=== PATIENT | female | born 1945 | race African-American/Black ===

== ENCOUNTER 2016-07-24 10:53 | Observation (INO) | payer MEDICARE, OTHER ==
--- NOTE | 2016-07-24 11:27 | ED ---
General Adult HPI - General Chief complaint: Weakness Stated complaint: HEADACHE, LUNG PAIN LEFT SIDE, CONGESTION Time Seen by Provider: 07/24/16 11:05 Source: patient, RN notes reviewed Mode of arrival: ambulatory Limitations: no limitations - History of Present Illness Initial comments: This is a 70-year-old female presents emergency Department with a past medical history significant for diabetes hypertension high cholesterol. Patient comes into the emergency department today because she states she has been feeling well since Wednesday. Patient states she's been in bed since Wednesday not eating or drinking much because she felt so bad. Patient states she barely has a strength. Go to the bathroom. Patient states she also has had some left-sided chest discomfort that she finds very difficult to describe. Patient states it' s always there and sometimes is associated with some shortness of breath per patient denies any diaphoresis. Patient denies any nausea vomiting per patient denies any diarrhea. Patient denies any fever per patient states sometimes the cough has produced some sputum but a lot of times it is not. Patient also complains of occasional sharp pains to her head the last one second or less. But currently does not have a headache denies any visual disturbance speech disturbance or any numbness weakness. - Related Data Home Medications Medication Instructions Recorded Confirmed Aspirin EC [Ecotrin Low Dose] 81 mg PO DAILY 07/24/16 07/24/16 INSULIN LISPRO (humaLOG) [HumaLOG] See Protocol SQ ACHS 07/24/16 07/24/16 Insulin Detemir [Levemir] 70 unit SQ HS 07/24/16 07/24/16 Lisinopril [Zestril] 20 mg PO DAILY 07/24/16 07/24/16 Metoprolol Succinate (ER) [Toprol 50 mg PO DAILY 07/24/16 07/24/16 Xl] Omeprazole 40 mg PO DAILY 07/24/16 07/24/16 Oxybutynin Chloride [Ditropan] 5 mg PO BID 07/24/16 07/24/16 Pravastatin Sodium [Pravachol] 20 mg PO HS 07/24/16 07/24/16 metFORMIN HCL [Glucophage] 500 mg PO BID 07/24/16 07/24/16 Allergies Allergy/AdvReac Type Severity Reaction Status Date / Time Penicillins Allergy Rash/Hives Verified 07/24/16 11:30 Review of Systems ROS Statement: Those systems with pertinent positive or pertinent negative responses have been documented in the HPI. ROS Other: All systems not noted in ROS Statement are negative. Past Medical History Past Medical History: Diabetes Mellitus, GERD/Reflux, Hyperlipidemia, Hypertension Additional Past Medical History / Comment(s): bladder control History of Any Multi-Drug Resistant Organisms: None Reported Past Surgical History: Section Past Psychological History: No Psychological Hx Reported Smoking Status: Former smoker Past Alcohol Use History: None Reported Past Drug Use History: None Reported General Exam - General Exam Comments Initial Comments: GENERAL: Patient is well-developed and well-nourished. Patient is nontoxic and well- hydrated and is in mild distress. ENT: Neck is soft and supple. No significant lymphadenopathy is noted. Oropharynx is clear. Moist mucous membranes. Neck has full range of motion without eliciting any pain. EYES: The sclera were anicteric and conjunctiva were pink and moist. Extraocular movements were intact and pupils were equal round and reactive to light. Eyelids were unremarkable. PULMONARY: Unlabored respirations. Good breath sounds bilaterally. No audible rales rhonchi or wheezing was noted. CARDIOVASCULAR: There is a regular rate and rhythm without any murmurs gallops or rubs. ABDOMEN: Soft and nontender with normal bowel sounds. No palpable organomegaly was noted. There is no palpable pulsatile mass. SKIN: Skin is clear with no lesions or rashes and otherwise unremarkable. NEUROLOGIC: Patient is alert and oriented x3. Cranial nerves II through XII are grossly intact. Motor and sensory are also intact. Normal speech, volume and content. Symmetrical smile. MUSCULOSKELETAL: Normal extremities with adequate strength and full range of motion. No lower extremity swelling or edema. No calf tenderness. LYMPHATICS: No significant lymphadenopathy is noted PSYCHIATRIC: Normal psychiatric evaluation. Normal interpersonal interactions appears functionally intact in deals appropriately with others. No signs of depression. No signs of anxiety. Limitations: no limitations Course Vital Signs 07/24/16 07/24/16 07/24/16 11:05 11:42 11:47 Temperature 99 F Pulse Rate 110 H 110 H Respiratory 20 20 20 Rate Blood Pressure 137/63 160/76 O2 Sat by Pulse 95 98 Oximetry 07/24/16 12:20 Temperature Pulse Rate 99 Respiratory 18 Rate Blood Pressure 156/78 O2 Sat by Pulse 97 Oximetry Medical Decision Making - Medical Decision Making EKG shows sinus tachycardia with occasional PAC at 111 bpm OH interval 148 QRSs 80 QT interval 342 QTC is 465. Patient's EKG shows no ST segment elevation or depression or T-wave abdomen is noted. Lab work was normal. Chest x-ray was normal. I will back and reevaluated the patient she continued to have some discomfort on the left side of her chest. I spoke with Dr. Lira he agreed to admit the patient I wrote admit orders and consult cardiology. Did start the patient on heparin. - Lab Data Result diagrams: 07/24/16 11:30 07/24/16 11:30 Lab Results 07/24/16 07/24/16 07/24/16 Range/Units 11:27 11:30 11:30 WBC 3.1 L (3.8-10.6) k/uL RBC 6.92 H (3.80-5.40) m/uL Hgb 15.2 (11.4-16.0) gm/dL Hct 50.9 H (34.0-46.0) % MCV 73.6 L (80.0-100.0) fL MCH 22.0 L (25.0-35.0) pg MCHC 29.8 L (31.0-37.0) g/dL RDW 14.7 (11.5-15.5) % Plt Count 205 (150-450) k/uL Neutrophils % (Manual) 34.0 % Band Neutrophils % 2.0 % Lymphocytes % (Manual) 50.0 % Monocytes % (Manual) 14.0 % Neutrophils # (Manual) 1.1 L (1.3-7.7) k/uL Lymphocytes # (Manual) 1.6 (1.0-4.8) k/uL Monocytes # (Manual) 0.4 (0-1.0) k/uL Nucleated RBCs 0 (0-0) /100 WBC Manual Slide Review Performed Hypochromasia Moderate Poikilocytosis (manual Present Microcytosis Slight PT (9.0-12.0) sec INR (<1.1) APTT (22.0-30.0) sec Sodium (137-145) mmol/L Potassium (3.5-5.1) mmol/L Chloride (98-107) mmol/L Carbon Dioxide (22-30) mmol/L Anion Gap mmol/L BUN (7-17) mg/dL Creatinine (0.52-1.04) mg/dL Est GFR (MDRD) Af Amer (>60 ml/min/1.73 sqM) Est GFR (MDRD) Non-Af (>60 ml/min/1.73 sqM) Glucose (74-99) mg/dL POC Glucose (mg/dL) 225 H (75-99) mg/dL POC Glu Acute Dialysis Registered Nurse ID Calcium (8.4-10.2) mg/dL Magnesium (1.6-2.3) mg/dL Total Bilirubin (0.2-1.3) mg/dL AST (14-36) U/L ALT (9-52) U/L Alkaline Phosphatase (38-126) U/L Total Creatine Kinase 78 (30-135) U/L CK-MB (CK-2) 0.4 (0.0-2.4) ng/mL CK-MB (CK-2) Rel Index 0.5 Troponin I 0.020 (0.000-0.034) ng/mL NT-Pro-B Natriuret Pep pg/mL Total Protein (6.3-8.2) g/dL Albumin (3.5-5.0) g/dL 07/24/16 07/24/16 07/24/16 Range/Units 11:30 11:30 11:30 WBC (3.8-10.6) k/uL RBC (3.80-5.40) m/uL Hgb (11.4-16.0) gm/dL Hct (34.0-46.0) % MCV (80.0-100.0) fL MCH (25.0-35.0) pg MCHC (31.0-37.0) g/dL RDW (11.5-15.5) % Plt Count (150-450) k/uL Neutrophils % (Manual) % Band Neutrophils % % Lymphocytes % (Manual) % Monocytes % (Manual) % Neutrophils # (Manual) (1.3-7.7) k/uL Lymphocytes # (Manual) (1.0-4.8) k/uL Monocytes # (Manual) (0-1.0) k/uL Nucleated RBCs (0-0) /100 WBC Manual Slide Review Hypochromasia Poikilocytosis (manual Microcytosis PT 11.9 (9.0-12.0) sec INR 1.2 (<1.1) APTT 28.3 (22.0-30.0) sec Sodium 136 L (137-145) mmol/L Potassium 4.3 (3.5-5.1) mmol/L Chloride 96 L (98-107) mmol/L Carbon Dioxide 23 (22-30) mmol/L Anion Gap 17 mmol/L BUN 14 (7-17) mg/dL Creatinine 1.03 (0.52-1.04) mg/dL Est GFR (MDRD) Af Amer >60 (>60 ml/min/1.73 sqM) Est GFR (MDRD) Non-Af 53 (>60 ml/min/1.73 sqM) Glucose 255 H (74-99) mg/dL POC Glucose (mg/dL) (75-99) mg/dL POC Glu Acute Dialysis Registered Nurse ID Calcium 9.6 (8.4-10.2) mg/dL Magnesium 1.6 (1.6-2.3) mg/dL Total Bilirubin 0.6 (0.2-1.3) mg/dL AST 112 H (14-36) U/L ALT 105 H (9-52) U/L Alkaline Phosphatase 111 (38-126) U/L Total Creatine Kinase (30-135) U/L CK-MB (CK-2) (0.0-2.4) ng/mL CK-MB (CK-2) Rel Index Troponin I (0.000-0.034) ng/mL NT-Pro-B Natriuret Pep 41 pg/mL Total Protein 8.4 H (6.3-8.2) g/dL Albumin 4.4 (3.5-5.0) g/dL Disposition Clinical Impression: Unstable angina Disposition: ADMITTED IP TO THIS [facility] Time of Disposition: 13:41
[2016-07-24 11:30] LABS: Glucose,Whole Blood 225 mg/dL (75-99)
[2016-07-24 12:02] LABS: ALT 105 U/L (9-52); AST 112 U/L (14-36); Alkaline Phosphatase 111 U/L (38-126); Anion Gap 17 mmol/L; Blood Urea Nitrogen 14 mg/dL (7-17); Calcium 9.6 mg/dL (8.4-10.2); Carbon Dioxide 23 mmol/L (22-30); Chloride 96 mmol/L (98-107); Glucose 255 mg/dL (74-99); Magnesium 1.6 mg/dL (1.6-2.3); Non-African American GFR(MDRD) 53 (>60 ml/min/1.73 sqM); Potassium 4.3 mmol/L (3.5-5.1); Sodium 136 mmol/L (137-145); Total Bilirubin 0.6 mg/dL (0.2-1.3); Total Protein 8.4 g/dL (6.3-8.2)
[2016-07-24 12:09] LABS: Aty Lym Flag Moderate; CH 22.2; CHCM 30.4; HCT 50.9 % (34.0-46.0); HDW 2.61; HGB 15.2 gm/dL (11.4-16.0); Hypochromasia Moderate; INR 1.2 (<1.1); MCHC 29.8 g/dL (31.0-37.0); MCV 73.6 fL (80.0-100.0); Mean Platelet Volume 6.3; Microcytosis Slight; Partial Thromboplastin Time 28.3 sec (22.0-30.0); Prothrombin Time 11.9 sec (9.0-12.0); RBC 6.92 m/uL (3.80-5.40); RDW 14.7 % (11.5-15.5); WBC 3.1 k/uL (3.8-10.6); WBC (Perox) 3.16
--- NOTE | 2016-07-24 12:15 | XR ---
EXAMINATION TYPE: XR chest 2V DATE OF EXAM: 07/24/2016 11:59 AM COMPARISON: 04/21/2016 HISTORY: Shortness of breath TECHNIQUE: Frontal and lateral views of the chest are obtained. FINDINGS: Scattered senescent parenchymal changes noted. Hyperinflation compatible with COPD. No evidence for infiltrate. No evidence for atelectasis. Heart size is stable. Mediastinal structures are stable and grossly unremarkable. No evidence for hilar prominence. Degenerative changes dorsal spine. IMPRESSION: 1. No evidence for acute pulmonary disease.
[2016-07-24 12:31] LABS: Creatine Kinase MB 0.4 ng/mL (0.0-2.4); Troponin I 0.02 ng/mL (0.000-0.034)
[2016-07-24 12:45] LABS: Add Differential Manual Differential
[2016-07-24 12:48] LABS: Manual Review Performed; Nucleated Red Blood Cells 0 /100 WBC (0-0); Total Cells Counted 100
[2016-07-24] MEDS ORDERED: NITROGLYCERIN SL TABS 0.4 MG TAB SUBLINGUAL PRN (13:42)
[2016-07-24] MEDS ORDERED: ASPIRIN 81 MG CHEW PO STA (13:42)
[2016-07-24 16:55] LABS: Glucose,Whole Blood 248 mg/dL (75-99)
[2016-07-24 17:46] LABS: Creatine Kinase MB 0.5 ng/mL (0.0-2.4); Troponin I 0.023 ng/mL (0.000-0.034)
[2016-07-24 20:37] LABS: Glucose,Whole Blood 307 mg/dL (75-99)
[2016-07-24] MEDS ORDERED: PRAVASTATIN SODIUM 20 MG TAB PO SCH (21:00)
[2016-07-24] MEDS: OXYBUTYNIN CHLORIDE 5 MG TAB PO SCH (21:19)
[2016-07-24] MEDS: LISINOPRIL 20 MG TAB PO SCH (21:19)
[2016-07-24] MEDS: INSULIN DETEMIR 100 UNIT/ML 10 ML VIAL SQ SCH (21:19)
[2016-07-24] MEDS: INSULIN LISPRO (humaLOG) 300 UNIT/3 ML VIAL SQ SCH ×2 (21:20→21:49)
[2016-07-24] MEDS: NITROGLYCERIN OINT 1 INCH/GM PACKET TOPICAL SCH (21:48)
[2016-07-24 22:35] LABS: Hemoglobin A1C 9.2 % (4.2-6.1)
[2016-07-25 01:08] LABS: Creatine Kinase MB 0.7 ng/mL (0.0-2.4)
[2016-07-25 01:13] LABS: Troponin I 0.04 ng/mL (0.000-0.034)
[2016-07-25] MEDS: NITROGLYCERIN OINT 1 INCH/GM PACKET TOPICAL SCH ×2 (01:13→05:28)
[2016-07-25 02:41] LABS: Cholesterol 122 mg/dL (<200); HDL Cholesterol 21 mg/dL (40-60); Triglycerides 152 mg/dL (<150)
[2016-07-25 06:48] LABS: Glucose,Whole Blood 227 mg/dL (75-99)
[2016-07-25] MEDS ORDERED: ASPIRIN 325 MG TAB PO SCH (09:00)
--- NOTE | 2016-07-25 09:51 | P.CRDCN ---
History of Present Illness Consult date: 07/25/16 Requesting physician: Vahid Lira Consult reason: chest pain Chief complaint: Weakness and shortness of breath History of present illness: This is a 70-year-old -[place] female with history of hypertension, diabetes, hyperlipidemia, who presented to the hospital with vague symptoms. She states that she's been extremely weak for the past 3-4 days, decreased appetite, frequent sweating spells. She also states that she felt congested in her chest and had a heavy feeling on the left side of her chest. She is always short of breath but states in the past couple of days she's been more short of breath than usual. Positive cough, nonproductive. Patient does see Dr. TIP Connell in the office, she had a dobutamine echocardiographic study in August of last year which was reported to be normal. On presentation here patient was noted to have a low-grade temperature of 99. Blood pressure 137/63 with heart rate of 110, O2 saturation 95%. Initial EKG showed a sinus tachycardia with occasional PACs, no acute changes noted. EKG performed this morning showed a normal sinus rhythm with no acute changes. Laboratory data, WBC 3.1, hemoglobin 15.2, platelet count 205. Sodium 136, potassium 4.3, BUN 14, creatinine 1.0. Blood glucose on admission 307. AST 112, ALT 105. Troponins 0.020, 0.0-3, 0.040. Patient is currently on aspirin 81 mg daily, insulin, lisinopril 20 daily, metoprolol tartrate 50 daily, Nitropaste and Protonix along with pravastatin 20 mg daily. At the time of my examination this morning , she denies any chest pain, discomfort complains of feeling mildly weak and tired. Chest x-ray does not reveal any evidence for acute pulmonary disease. Past Medical History Past Medical History: Diabetes Mellitus, GERD/Reflux, Hyperlipidemia, Hypertension, Osteoarthritis (OA) Additional Past Medical History / Comment(s): urinary incont, uti, tole in 1995 had a touch of copd-quit smoking, eczema, chronic back pain, sciatica, ddd, herniated disc, per past med hx hep 04-18-86, menigitis 07-19-1969, History of Any Multi-Drug Resistant Organisms: None Reported Past Surgical History: Section, Heart Catheterization Additional Past Surgical History / Comment(s): x3 c-sections, cataracts,lt breast bx-neg Past Anesthesia/Blood Transfusion Reactions: No Reported Reaction Past Psychological History: No Psychological Hx Reported Additional Psychological History / Comment(s): pt lives [place] in apt-no steps, uses a cane when up. no [employer]side services. 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 Smoking Status: Former smoker Past Alcohol Use History: None Reported Additional Past Alcohol Use History / Comment(s): started smoking age 14, quit 1995 was smoking 1.5 ppd. Past Drug Use History: None Reported - Past Family History Mother Family Medical History: Cancer Additional Family Medical History / Comment(s): brain ca Father Family Medical History: Cancer Additional Family Medical History / Comment(s): prostate cancer Medications and Allergies Home Medications Medication Instructions Recorded Confirmed Type Aspirin EC [Ecotrin Low Dose] 81 mg PO DAILY 07/24/16 07/24/16 History INSULIN LISPRO (humaLOG) [HumaLOG] See Protocol SQ ACHS 07/24/16 07/24/16 History Insulin Detemir [Levemir] 70 unit SQ HS 07/24/16 07/24/16 History Lisinopril [Zestril] 20 mg PO DAILY 07/24/16 07/24/16 History Metoprolol Succinate (ER) [Toprol 50 mg PO DAILY 07/24/16 07/24/16 History Xl] Omeprazole 40 mg PO DAILY 07/24/16 07/24/16 History Oxybutynin Chloride [Ditropan] 5 mg PO BID 07/24/16 07/24/16 History Pravastatin Sodium [Pravachol] 20 mg PO HS 07/24/16 07/24/16 History metFORMIN HCL [Glucophage] 500 mg PO BID 07/24/16 07/24/16 History Allergies Allergy/AdvReac Type Severity Reaction Status Date / Time Penicillins Allergy Rash/Hives Verified 07/24/16 11:30 Physical Exam Vitals: Vital Signs Temp Pulse Pulse Resp BP BP BP 07/25/16 08:00 98.3 F 91 16 125/56 07/25/16 04:00 98.1 F 100 18 111/61 07/25/16 00:00 89 18 07/24/16 22:54 110 H 18 151/66 07/24/16 20:00 95 18 07/24/16 19:52 111 H 18 144/63 07/24/16 16:00 97.8 F 103 H 18 143/74 07/24/16 15:53 99 F 95 18 158/70 Pulse Ox 07/25/16 08:00 98 07/25/16 04:00 95 07/25/16 00:00 07/24/16 22:54 98 07/24/16 20:00 07/24/16 19:52 96 07/24/16 16:00 98 07/24/16 15:53 98 Intake and Output 07/24/16 07/25/16 07/25/16 22:59 06:59 14:59 Intake Total 360 Balance 360 Intake: Oral 360 Other: Voiding Method Toilet Toilet Diaper Diaper # Voids 1 3 # Bowel Movements 3 Weight 98.4 kg 98.4 kg PHYSICAL EXAMINATION: HEENT: Head is atraumatic, normocephalic. Pupils equal, round. Neck is supple. There is no elevated jugular venous pressure. HEART EXAMINATION: Heart S1, S2 normal. No murmur or gallop heard. CHEST EXAMINATION: Lungs are clear to auscultation and precussion. No chest wall tenderness is noted on palpation or with deep breathing. ABDOMEN: Soft, nontender. Bowel sounds are heard. No organomegaly noted. EXTREMITIES: 2+ peripheral pulses with no evidence of peripheral edema and no calf tenderness noted. NEUROLOGIC patient is awake, alert and oriented -3. . Results 07/24/16 11:30 07/24/16 11:30 Cardiac Enzymes 07/24/16 07/25/16 Range/Units 17:03 00:02 CK-MB (CK-2) 0.5 0.7 (0.0-2.4) ng/mL Troponin I 0.023 0.040 H* (0.000-0.034) ng/mL Current Medications Generic Name Dose Route Start Last Admin Trade Name Freq PRN Reason Stop Dose Admin Aspirin 81 mg 07/25/16 09:00 Aspirin PO DAILY OLIVA Insulin Detemir 70 unit 07/24/16 21:00 07/24/16 21:19 Levemir SQ 70 unit HS OLIVA Administration Insulin Human Lispro 0 unit 07/24/16 17:30 07/24/16 21:49 Humalog SQ Not Given ACHS [facility] Protocol Lisinopril 20 mg 07/24/16 19:00 07/24/16 21:19 Zestril PO 20 mg DAILY [facility] Administration Metoprolol Succinate 50 mg 07/25/16 09:00 Toprol Xl PO DAILY [facility] Nitroglycerin 1 inch 07/24/16 18:00 07/25/16 05:28 Nitro-Bid Oint TOPICAL Not Given Q6HR [facility] Nitroglycerin 0.4 mg 07/24/16 13:42 Nitrostat SUBLINGUAL Q5M PRN Chest Pain Oxybutynin Chloride 5 mg 07/24/16 21:00 07/24/16 21:19 Ditropan PO 5 mg BID OLIVA Administration Pantoprazole Sodium 40 mg 07/25/16 07:30 Protonix PO AC-BRKFST [facility] Pravastatin Sodium 20 mg 07/24/16 21:00 07/24/16 21:19 Pravachol PO 20 mg HS OLIVA Administration Intake and Output 07/24/16 07/25/16 07/25/16 22:59 06:59 14:59 Intake Total 360 Balance 360 Intake: Oral 360 Other: Voiding Method Toilet Toilet Diaper Diaper # Voids 1 3 # Bowel Movements 3 Weight 98.4 kg 98.4 kg EKG Interpretations (text) Initial EKG shows a sinus tachycardia with occasional PAC, EKG performed this morning shows normal sinus rhythm with no acute changes. Assessment and Plan Plan: Assessment and plan #1 symptoms of progressive weakness with associated diaphoresis and chest congestion. Low-grade temperature on admission. Rule out viral syndrome, influenza. #2 atypical chest discomfort, troponins 0.02, 0.02, 0.04. #3 diabetes, uncontrolled. #4 hypertension #5 hyperlipidemia #6 obesity #7 elevated lfts, possible non alcoholic liver disease Plan We will obtain an echocardiogram with Doppler study. Discontinue pravastatin and initiate Lipitor. Obatin Flu swab. We will also request ultrasound of liver and gallbladder be performed today. Symptoms atypical for acute coronary syndrome, may consider stress testing on Wednesday. DNP note has been reviewed, I agree with a documented findings and plan of care. Patient was seen and examined.
[2016-07-25 11:30] VITALS: BMI 37.2
[2016-07-25 12:15] LABS: Glucose,Whole Blood 199 mg/dL (75-99)
--- NOTE | 2016-07-25 12:48 | US ---
EXAMINATION TYPE: US liver DATE OF EXAM: 07/25/2016 11:35 AM COMPARISON: NONE CLINICAL HISTORY: abnormal lfts. TECHNOLOGIST IMPRESSION: Limited examination due to patient body habitus, pt unable to hold breath w ell, and fatty liver. Pancreas: Obscured by bowel gas, portions visualized appear wnl Liver: Increased attenuation, decreased visualization of vessels suggestive of fatty infiltrate Gallbladder: wnl Evidence for sonographic Lacey's sign: No CBD: wnl Right Kidney: Obscured by overlying bowel gas, portions visualized appear wnl There is fatty infiltration to the liver. Gallbladder is sonolucent. Gallbladder wall is normal and 0 .14 cm. Common bile duct is normal 0.36 cm. Right kidney measures 10.4 x 4.2 x 5.6 cm. No masses just hydronephrosis are evident. IMPRESSION: 1. Normal right upper quadrant ultrasound
[2016-07-25] MEDS: INSULIN LISPRO (humaLOG) 300 UNIT/3 ML VIAL SQ SCH ×5 (12:51→20:29)
[2016-07-25] MEDS: ASPIRIN 81 MG CHEW PO SCH (12:57)
[2016-07-25] MEDS: OXYBUTYNIN CHLORIDE 5 MG TAB PO SCH ×2 (12:57→20:30)
[2016-07-25] MEDS: METOPROLOL SUCCINATE (ER) 50 MG TAB.ER.24H PO SCH (12:57)
[2016-07-25] MEDS: PANTOPRAZOLE 40 MG TABLET PO SCH (12:58)
[2016-07-25] MEDS: LISINOPRIL 20 MG TAB PO SCH (12:58)
[2016-07-25 17:49] LABS: Glucose,Whole Blood 191 mg/dL (75-99)
[2016-07-25] MEDS: SODIUM CHLORIDE 0.9% 1,000 ML IV SCH (20:26)
[2016-07-25] MEDS: INSULIN DETEMIR 100 UNIT/ML 10 ML VIAL SQ SCH (20:27)
[2016-07-25 20:30] LABS: Glucose,Whole Blood 260 mg/dL (75-99)
--- NOTE | 2016-07-25 23:04 | HP ---
Patient is a 70-year-old female, came in with complaints of chest ( ). Patient is mostly having flu-like symptoms. Regarding the chest pain and issues, Cardiology was consulted. Please refer to the dictation for further details. Regarding respiratory issues, patient was having flu-like symptoms which have been generalized body aches. Patient denied any nausea, but did have diarrhea yesterday which resolved at this point of time. Patient is positive for flu. Patient was febrile here in the hospital and the patient denied any fever at home. Patient will be started on Tamiflu and patient has a history of coronary artery disease in the past. Cardiology evaluated the patient and they are recommending a stress test on Wednesday. If Cardiology clears, patient can be discharged today with Tamiflu. If not, patient will be started on IV fluids and will leave her here. Patient has mildly elevated AST and ALT, because of which we did an ultrasound of the liver which is essentially negative now, so I will obtain hepatitis panel. Will repeat electrolytes tomorrow. Patient's chest pain for me appears to be mostly musculoskeletal in nature. Chest x-ray did not show any pneumonia. The patient's chest pain is nonpleuritic, not associated with food. Past medical history is significant for diabetes mellitus, gastroesophageal reflux disease, hyperlipidemia, hypertension, osteoarthritis, cardiac catheterization in the past, coronary artery disease, ear infection. ROS: All other systems were reviewed and were negative. SOCIAL HISTORY: Former smoker, used to smoke 1.55 packs per day. Denied any alcohol abuse or any drug abuse. FAMILY HISTORY: Mother had brain cancer. Father had prostate cancer. HOME MEDICATIONS: 1. Aspirin. 2. Insulin. 3. Levemir 70 units at bedtime. 4. Lisinopril. 5. Metoprolol. 6. Omeprazole. 7. Oxybutynin. 8. Pravastatin. 9. Metformin. ALLERGIES: ALLERGIC TO PENICILLIN. PHYSICAL EXAMINATION: VITAL SIGNS: Temperature 98.0, pulse of 91, respiratory rate of 16. Patient when she came in was tachycardic at 111. Blood pressure of 111/61, saturating at 98% on room air. GENERAL: Patient does have generalized ( ) and appears to be a little bit fatigued. HEENT: Pupils are round and equally reacting to light. EOMI. No scleral icterus. No conjunctival pallor. Normocephalic, atraumatic. No pharyngeal erythema. No thyromegaly. CARDIOVASCULAR: S1 and S2 present. No murmurs, rubs, or gallops. PULMONARY: Chest is clear to auscultation, no wheezing or crackles. ABDOMEN: Soft, nontender, nondistended, normoactive bowel sounds. No palpable organomegaly. MUSCULOSKELETAL: No joint swelling or deformity. EXTREMITIES: No cyanosis, clubbing, or pedal edema. NEUROLOGICAL: Gross neurological examination did not reveal any focal deficits. SKIN: No rashes. LABORATORY DATA: CBC, CMP are abnormal for elevated hematocrit. Blood glucose is minimally elevated. Chest x-ray does not show any pneumonic process acutely and the rest of the cardiac workup is as per Cardiology, who will evaluate the patient. ASSESSMENT AND PLAN: 1. Symptoms of generalized weakness and febrile episode and flu-like symptoms secondary to influenza. Patient will be discharged on Tamiflu if cleared by Cardiology. Patient does have chest congestion and diarrhea, all of which evolving from flu. 2. Atypical chest pain with negative troponin. Further management as per Cardiology. 3. Diabetes mellitus. Uncontrolled blood sugars. Will continue with the present regimen. Will titrate her insulin accordingly. 4. Hypertension. 5. Hyperlipidemia. 6. Obesity. 7. Mildly elevated liver function tests, probable related to nonalcoholic steatohepatitis. Ultrasound of the liver has been obtained. Will obtain a hepatitis panel ( ). MTDD
[2016-07-26 06:55] LABS: Glucose,Whole Blood 154 mg/dL (75-99)
[2016-07-26 07:23] LABS: ALT 72 U/L (9-52); AST 67 U/L (14-36); Alkaline Phosphatase 86 U/L (38-126); Anion Gap 10 mmol/L; Blood Urea Nitrogen 28 mg/dL (7-17); Carbon Dioxide 26 mmol/L (22-30); Chloride 101 mmol/L (98-107); Glucose 169 mg/dL (74-99); Non-African American GFR(MDRD) >60 (>60 ml/min/1.73 sqM); Potassium 4.4 mmol/L (3.5-5.1); Sodium 137 mmol/L (137-145); Total Bilirubin 0.4 mg/dL (0.2-1.3); Total Protein 7.2 g/dL (6.3-8.2)
[2016-07-26 08:19] VITALS: RESP 16
[2016-07-26] MEDS: LISINOPRIL 20 MG TAB PO SCH (08:30)
[2016-07-26] MEDS: ASPIRIN 81 MG CHEW PO SCH (08:30)
[2016-07-26] MEDS: PANTOPRAZOLE 40 MG TABLET PO SCH (08:30)
[2016-07-26] MEDS: METOPROLOL SUCCINATE (ER) 50 MG TAB.ER.24H PO SCH (08:30)
[2016-07-26] MEDS: OXYBUTYNIN CHLORIDE 5 MG TAB PO SCH (08:31)
[2016-07-26] MEDS: INSULIN LISPRO (humaLOG) 300 UNIT/3 ML VIAL SQ SCH ×4 (08:31→13:09)
[2016-07-26] MEDS: SODIUM CHLORIDE 0.9% 1,000 ML IV SCH (08:31)
[2016-07-26] MEDS ORDERED: ATORVASTATIN 40 MG TAB PO SCH (09:00)
[2016-07-26] MEDS ORDERED: OSELTAMIVIR 75 MG CAP PO SCH (11:30)
[2016-07-26 11:52] VITALS: BP 119/51; PULSE 68; TEMP 97.9
[2016-07-26 12:09] LABS: Glucose,Whole Blood 99 mg/dL (75-99)
--- NOTE | 2016-07-26 15:08 | ECHOF ---
Referral Reason: MEASUREMENTS -------- HEIGHT: 162.6 cm WEIGHT: 98.0 kg BP: 125/56 RVIDd: 2.7 cm (< 3.3) IVSd: 1.7 cm (0.6 - 1.1) LVIDd: 2.5 cm (3.9 - 5.3) LVPWd: 1.7 cm (0.6 - 1.1) IVSs: 2.1 cm LVIDs: 1.8 cm LVPWs: 2.4 cm LA Diam: 2.6 cm (2.7 - 3.8) LAESV Index (A-L): 19.78 ml/m Ao Diam: 3.0 cm (2.0 - 3.7) AV Cusp: 1.9 cm (1.5 - 2.6) LA Diam: 2.4 cm (2.7 - 3.8) MV EXCURSION: 10.759 mm (> 18.000) MV EF SLOPE: 67 mm/s (70 - 150) EPSS: 0.4 cm MV E Yomi: 0.46 m/s MV DecT: 159 ms MV A Yomi: 0.83 m/s MV E/A Ratio: 0.56 AV maxP.26 mmHg AV meanP.53 mmHg RAP: 15.00 mmHg RVSP: 19.64 mmHg FINDINGS -------- Sinus rhythm. This was a technically adequate study. There is severe concentric left ventricular hypertrophy. Overall left ventricular systolic function is normal with, an EF between 55 - 60 %. The right ventricle is normal in size. Normal LA size by volume 22+/-6 ml/m2. Aortic valve is trileaflet and is mildly thickened. Mild mitral annular calcification present. There is trace mitral regurgitation. Trace tricuspid regurgitation present. Right ventricular systolic pressure is normal at < 35 mmHg. Pulmonic valve appears structurally normal. The aortic root size is normal. The inferior vena cava is dilated with no significant inspiratory collapse which is consistent estimated right atrial pressure of >15 mmHg. Echo free space may represent effusion or a pericardial fat pad. CONCLUSIONS -------- 1. Sinus rhythm. 2. Trace tricuspid regurgitation present. 3. Right ventricular systolic pressure is normal at < 35 mmHg. 4. Pulmonic valve appears structurally normal. 5. The aortic root size is normal. 6. The inferior vena cava is dilated with no significant inspiratory collapse which is consistent estimated right atrial pressure of >15 mmHg. 7. Echo free space may represent effusion or a pericardial fat pad. 8. This was a technically adequate study. 9. There is severe concentric left ventricular hypertrophy. 10. Overall left ventricular systolic function is normal with, an EF between 55 - 60 %. 11. The right ventricle is normal in size. 12. Normal LA size by volume 22+/-6 ml/m2. 13. Aortic valve is trileaflet and is mildly thickened. 14. Mild mitral annular calcification present. 15. There is trace mitral regurgitation. ENVELOPE FOLDING MACHINE OPERATOR: Jere Koch RDCS
--- NOTE | 2016-07-26 17:06 | DS ---
DATE OF ADMISSION: 07/24/2016 DATE OF DISCHARGE: 07/26/2016 Patient is a 70-year-old admitted for chest pain. Patient has atypical chest pain, rule out acute coronary artery syndrome and patient has minimally elevated troponins, not high enough to say myocardial infarction. Patient is positive for influenza. Patient's body aches are related to that and patient is feeling much better today. Patient has reproducible chest pain and patient's AST and ALT are coming down. Patient is clinically doing well. For discharge therapies, refer to my H&P for further details of discharge. Patient will follow with Dr. Shaunna Connell in [address] Freddy Elise in about 3 days. Activity as tolerated. Cardiac diet.
== END 2016-07-26 16:00 | disposition home or self-care (01) ==
LOC: EC 10:53 → 3OBS 13:42
PROVIDERS: ADMIT Internal Medicine; ATTEND Internal Medicine
DX: R07.89 Other chest pain (principal); R79.89 Other specified abnormal findings of blood chemistry; J11.1 Influenza due to unidentified influenza virus with other respiratory manifestations; R74.8 Abnormal levels of other serum enzymes; E11.65 Type 2 diabetes mellitus with hyperglycemia; K21.9 Gastro-esophageal reflux disease without esophagitis; E78.5 Hyperlipidemia, unspecified; E78.00 Pure hypercholesterolemia, unspecified; N32.9 Bladder disorder, unspecified; I10 Essential (primary) hypertension; E66.9 Obesity, unspecified; Z79.82 Long term (current) use of aspirin; Z79.4 Long term (current) use of insulin; Z79.899 Other long term (current) drug therapy; Z79.84 Long term (current) use of oral hypoglycemic drugs; Z88.0 Allergy status to penicillin; Z87.891 Personal history of nicotine dependence; Z80.8 Family history of malignant neoplasm of other organs or systems; Z68.37 Body mass index [BMI] 37.0-37.9, adult; I25.10 Atherosclerotic heart disease of native coronary artery without angina pectoris
CPT/HCPCS: 36415; 94760; 93005; 93306; 83880; 80061; 80053 ×2; 83036; 82550 ×2; 82553 ×2; 83735; 84484 ×2; 85025; 85610; 85730; 87040; 87324; 87502; 71020; 76705; 99285; G0378 ×3; 96360; 96361

== ENCOUNTER → 2016-12-17 | Outpatient (CLI) | payer MEDICARE, OTHER ==
--- NOTE | 2016-12-18 08:35 | MM ---
Reason for exam: screening (asymptomatic). Last mammogram was performed 1 year ago. History: Patient is postmenopausal. Excisional biopsy of the right breast, 2011. Physical Findings: A clinical breast exam by your physician is recommended on an annual basis and results should be correlated with mammographic findings. MG Screening Mammo w CAD Bilateral CC and MLO view(s) were taken. Prior study comparison: December 16, 2015, bilateral MG screening mammo w CAD. November 22, 2014, bilateral MG screening mammo w CAD. The breast tissue is almost entirely fat. Finding: There are slowly increasing grouped/clustered calcifications in the right breast. Increase in number of calcifications since December 16, 2015 and November 22, 2014. ASSESSMENT: Incomplete: need additional imaging evaluation, BI-RAD 0 RECOMMENDATION: Special view mammogram of the right breast. [facility] will attempt to contact patient to return for supplemental views.
== END | disposition home or self-care (01) ==
LOC: RADMAMWWP 10:59
PROVIDERS: ATTEND Internal Medicine
DX: Z12.31 Encounter for screening mammogram for malignant neoplasm of breast (principal)

== ENCOUNTER → 2016-12-23 | Outpatient (CLI) | payer MEDICARE, OTHER ==
--- NOTE | 2016-12-24 06:47 | MM ---
Reason for exam: additional evaluation requested from abnormal screening. Last mammogram was performed less than 1 month ago. History: Patient is postmenopausal. Excisional biopsy of the right breast, 2011. Physical Findings: Nurse did not find any significant physical abnormalities on exam. MG Work Up Mamm w CAD RT LM, CC with magnification, and LM with magnification view(s) were taken of the right breast. Prior study comparison: December 17, 2016, bilateral MG screening mammo w CAD. December 16, 2015, bilateral MG screening mammo w CAD. November 22, 2014, bilateral MG screening mammo w CAD. There are scattered fibroglandular densities. Right breast calcifications are stable back to 11/22/14 and can be considered benign. These results were verbally communicated with the patient and result sheet given to the patient on 12/23/16. ASSESSMENT: Benign, BI-RAD 2 RECOMMENDATION: Routine screening mammogram of both breasts in 1 year.
== END | disposition home or self-care (01) ==
LOC: RADMAMWWP 14:05
PROVIDERS: ATTEND Internal Medicine
DX: R92.8 Other abnormal and inconclusive findings on diagnostic imaging of breast (principal)

== ENCOUNTER → 2016-12-29 | Outpatient (CLI) | payer MEDICARE, OTHER ==
--- NOTE | 2016-12-29 14:35 | XR ---
EXAMINATION TYPE: XR chest 2V DATE OF EXAM: 12/29/2016 COMPARISON: 07/24/2016 HISTORY: Hypertension, preop TECHNIQUE: Frontal and lateral views of the chest are obtained. FINDINGS: There is no focal air space opacity, pleural effusion, or pneumothorax seen. The cardiac silhouette size is within normal limits. Prominent lung volume could be indicative of COPD. Heart siz e is borderline of the patient is rotated which may accentuate the appearance, the exam is stable. Th e osseous structures are intact. IMPRESSION: No acute cardiopulmonary process.
== END | disposition home or self-care (01) ==
LOC: RADXRMAIN 11:36
PROVIDERS: ATTEND Internal Medicine
DX: I10 Essential (primary) hypertension (principal)
CPT/HCPCS: 71020

== ENCOUNTER → 2018-01-10 | Outpatient (CLI) | payer MEDICARE, OTHER ==
--- NOTE | 2018-01-10 13:41 | XR ---
EXAMINATION TYPE: XR chest 2V DATE OF EXAM: 01/10/2018 COMPARISON: Prior chest x-ray 12/29/2017 HISTORY: Hypertension, shoulder pain TECHNIQUE: Frontal and lateral views of the chest are obtained. FINDINGS: There is no focal air space opacity, pleural effusion, or pneumothorax seen. The cardiac silhouette size is stable accounting for rotation. Prominent lung volume could be indicative of unde rlying COPD. The osseous structures are intact. IMPRESSION: No acute cardiopulmonary process.
--- NOTE | 2018-01-10 13:42 | XR ---
Right shoulder HISTORY: Right shoulder pain 3 views of the right shoulder Hypertrophic changes present at the acromioclavicular joint. There is no fracture or dislocation pres ent. Possible pseudocyst in the humeral head. Right lung apex as visualized is normal. IMPRESSION: Acromioclavicular joint arthropathy, shoulder MRI may be of benefit.
== END ==
LOC: RADXRMAIN 11:11
PROVIDERS: ATTEND Internal Medicine
DX: M12.811 Other specific arthropathies, not elsewhere classified, right shoulder (principal); I10 Essential (primary) hypertension
CPT/HCPCS: 71046

== ENCOUNTER → 2018-02-03 | Outpatient (CLI) | payer MEDICARE, OTHER ==
--- NOTE | 2018-02-07 11:38 | MM ---
Reason for exam: screening (asymptomatic). Last mammogram was performed 1 year and 1 month ago. History: Patient is postmenopausal. Excisional biopsy of the right breast, 2011. Physical Findings: A clinical breast exam by your physician is recommended on an annual basis and results should be correlated with mammographic findings. MG Screening Mammo w CAD Bilateral CC and MLO view(s) were taken. Prior study comparison: December 23, 2016, right breast MG work up mamm w CAD RT. December 17, 2016, bilateral MG screening mammo w CAD. There are scattered fibroglandular densities. Finding: There are stable dystrophic, grouped/clustered calcifications in the upper outer quadrant, middle position of the right breast. Previous mammotome biopsy in the right breast. Stable grouped calcifications upper outer right breast and upper inner quadrant left breast. No significant changes in finding since December 23, 2016 and December 17, 2016. ASSESSMENT: Benign, BI-RAD 2 RECOMMENDATION: Routine screening mammogram of both breasts in 1 year.
== END | disposition home or self-care (01) ==
LOC: RADMAMWWP 13:04
PROVIDERS: ATTEND Internal Medicine
DX: Z12.31 Encounter for screening mammogram for malignant neoplasm of breast (principal)
CPT/HCPCS: 77067

== ENCOUNTER 2018-02-06 14:37 | Emergency (ER) | payer MEDICARE, OTHER ==
[2018-02-06] MEDS ORDERED: ONDANSETRON 4 MG/2 ML VIAL IVP STA (15:08)
[2018-02-06] MEDS ORDERED: MORPHINE SULFATE 4 MG/ML SYRINGE IVP STA (15:08)
[2018-02-06] MEDS ORDERED: SODIUM CHLORIDE 0.9% 500 ML IV ONE (15:08)
--- NOTE | 2018-02-06 15:15 | ED ---
General Adult HPI - General Chief complaint: Urogenital Stated complaint: Urogenital Time Seen by Provider: 02/06/18 14:53 Source: patient Mode of arrival: wheelchair Limitations: no limitations - History of Present Illness Initial comments: 72 year-old female history of IDDM and diverticulitis status post resection in September presenting with sudden onset sharp, stabbing, lower abdominal pain that began 45 minutes prior to arrival while at rest, without inciting event, and is accompanied by nausea and chest pressure. She states her last bowel movement was 2 days prior and was normal. She states she is not passing gas but is belching. She is not having any episodes of emesis. Patient denies any urinary symptoms but states she is incontinent wears a brief at baseline. She states her chest pressure is chronic for her and is unsure if it is worse. She denies F/C. She denies history of abdominal aortic aneurysm. - Related Data Home Medications Medication Instructions Recorded Confirmed Aspirin EC [Ecotrin Low Dose] 81 mg PO DAILY 07/24/16 02/06/18 INSULIN LISPRO (humaLOG) [HumaLOG] See Protocol SQ ACHS 07/24/16 02/06/18 Lisinopril [Zestril] 20 mg PO DAILY 07/24/16 02/06/18 Metoprolol Succinate (ER) [Toprol 50 mg PO DAILY 07/24/16 02/06/18 Xl] Pravastatin Sodium [Pravachol] 20 mg PO HS 07/24/16 02/06/18 Ergocalciferol (Vitamin D2) 50,000 unit PO WE 02/06/18 02/06/18 [Vitamin D2] Fluticasone Nasal [place] [Flonase 1 spr EA NOSTRIL DAILY 02/06/18 02/06/18 Nasal [place]] Insulin Glargine,Hum.rec.anlog 60 units SQ HS 02/06/18 02/06/18 [Toujeo Solostar] Ipratropium/Albuterol Sulfate 1 puff INHALATION RT-QID PRN 02/06/18 02/06/18 [Combivent Respimat Inhaler] L.acidoph,Paracasei, B.lactis 1 cap PO DAILY 02/06/18 02/06/18 [Probiotic] Polyethylene Glycol 3350 [Miralax] 17 gm PO DAILY 02/06/18 02/06/18 Allergies Allergy/AdvReac Type Severity Reaction Status Date / Time Penicillins Allergy Rash/Hives Verified 02/06/18 14:55 Sulfa (Sulfonamide Allergy Rash/Hives Verified 02/06/18 15:11 Antibiotics) Review of Systems ROS Statement: Those systems with pertinent positive or pertinent negative responses have been documented in the HPI. Review of Systems Constitutional: Denies fever, chills Eyes: Denies change in vision, Denies pain Ears, nose, mouth, throat: Denies headaches, Denies sore throat Cardiovascular: Denies chest pain. Denies palpitations Respiratory: Denies shortness of breath, Denies cough Gastrointestinal: Positive abdominal pain. Positive nausea. Denies vomiting, diarrhea. Genitourinary: Denies hematuria, Denies infections Musculoskeletal: Denies pain, Denies swelling Integumentary: Denies rash Neurological: Denies headache, focal weakness, focal numbness Psychiatric: Denies anxiety, Denies depression Hematologic/Lymphatic: Denies easy bleeding or bruising ROS Other: All systems not noted in ROS Statement are negative. Past Medical History Past Medical History: Diabetes Mellitus, GERD/Reflux, Hyperlipidemia, Hypertension, Osteoarthritis (OA) Additional Past Medical History / Comment(s): urinary incont, uti, tole in 1995 had a touch of copd-quit smoking, eczema, chronic back pain, sciatica, ddd, herniated disc, per past med hx hep 04-18-86, menigitis 07-19-1969, diverticulitis History of Any Multi-Drug Resistant Organisms: None Reported Past Surgical History: Section, Heart Catheterization Additional Past Surgical History / Comment(s): x3 c-sections, cataracts,lt breast bx-neg, Colon resection 09/2018 Past Anesthesia/Blood Transfusion Reactions: No Reported Reaction Past Psychological History: No Psychological Hx Reported Smoking Status: Former smoker Past Alcohol Use History: None Reported Past Drug Use History: None Reported - Past Family History Mother Family Medical History: Cancer Additional Family Medical History / Comment(s): brain ca Father Family Medical History: Cancer Additional Family Medical History / Comment(s): prostate cancer General Exam - General Exam Comments Initial Comments: General: Awake, alert, No acute Distress HENT: Normocephalic. Atraumatic Eyes: PERRL. EOMI. No scleral icterus. No injected conjunctiva Neck: Full ROM Chest/Lungs: Clear to auscultation bilaterally. No wheezing, rhonchi, or rales Cardiac: Regular rate, rhythm. No murmurs or rubs Abdomen/GI: [Distended abdomen with generalized tenderness, no rebound, no involuntary guarding. Hypoactive bowel sounds. No abdominal bruit. Musculoskeletal: Full ROM Skin: Warm, dry, intact Neurologic: A/Ox3, no weakness, no sensory deficit, no abnormal gait, no coordination deficit Limitations: no limitations Course Vital Signs 02/06/18 02/06/18 02/06/18 14:41 15:56 17:26 Temperature 98.5 F Pulse Rate 76 66 75 Respiratory 18 20 16 Rate Blood Pressure 181/68 192/85 188/85 O2 Sat by Pulse 99 99 96 Oximetry EKG Findings - EKG Comments: EKG Findings:: EKG shows normal sinus rhythm at a rate of 80 bpm. TX 138. QRS 68. QT/QTc 386/445. Similar to EKG from 07/24/16. Medical Decision Making - Medical Decision Making 72-year-old female with abdominal pain. Initial exam the patient is awake, alert, no acute distress. VSS. Patient's EKG shows normal sinus rhythm. Her abdomen is non-peritoneal. Her labratory workup is negative for acute process, including lactic and UA. Her CT abdomen pelvis is negative for acute process. On reevaluation the patient's symptoms have resolved. I offered the patient observation status and she declined saying she felt well enough to follow up with her PCP in the next two days. She was instructed to return if the pain returns, especially in the next 8-12 hours. No further emergent workup indicated. The patient was given return to ED instructions. They were instructed to follow up with their primary care provider. Stable for discharge at this time. - Lab Data Result diagrams: 02/06/18 15:29 02/06/18 15:29 Lab Results 02/06/18 02/06/18 02/06/18 Range/Units 15:29 15:29 15:29 WBC 5.9 (3.8-10.6) k/uL RBC 6.21 H (3.80-5.40) m/uL Hgb 13.0 (11.4-16.0) gm/dL Hct 44.8 (34.0-46.0) % MCV 72.0 L (80.0-100.0) fL MCH 21.0 L (25.0-35.0) pg MCHC 29.1 L (31.0-37.0) g/dL RDW 15.6 H (11.5-15.5) % Plt Count 203 (150-450) k/uL Neutrophils % 59 % Lymphocytes % 33 % Monocytes % 4 % Eosinophils % 3 % Basophils % 1 % Neutrophils # 3.5 (1.3-7.7) k/uL Lymphocytes # 1.9 (1.0-4.8) k/uL Monocytes # 0.2 (0-1.0) k/uL Eosinophils # 0.2 (0-0.7) k/uL Basophils # 0.0 (0-0.2) k/uL Hypochromasia Marked Microcytosis Slight Sodium 138 (137-145) mmol/L Potassium 4.3 (3.5-5.1) mmol/L Chloride 101 (98-107) mmol/L Carbon Dioxide 26 (22-30) mmol/L Anion Gap 11 mmol/L BUN 13 (7-17) mg/dL Creatinine 0.59 (0.52-1.04) mg/dL Est GFR (CKD-EPI)AfAm >90 (>60 ml/min/1.73 sqM) Est GFR (CKD-EPI)NonAf >90 (>60 ml/min/1.73 sqM) Glucose 207 H (74-99) mg/dL Plasma Lactic Acid Shawn 1.8 (0.7-2.0) mmol/L Calcium 9.9 (8.4-10.2) mg/dL Total Bilirubin 0.5 (0.2-1.3) mg/dL Conjugated Bilirubin 0.0 (0.0-0.3) mg/dL Unconjugated Bilirubin 0.2 (0.0-1.1) mg/dL Delta Bilirubin 0.3 H (0.0-0.2) mg/dL AST 35 (14-36) U/L ALT 42 (9-52) U/L Alkaline Phosphatase 111 (38-126) U/L Troponin I (0.000-0.034) ng/mL Total Protein 7.6 (6.3-8.2) g/dL Albumin 4.3 (3.5-5.0) g/dL Lipase 62 (23-300) U/L Urine Color Urine Appearance (Clear) Urine pH (5.0-8.0) Ur Specific [place] (1.001-1.035) Urine Protein (Negative) Urine Glucose (UA) (Negative) Urine Ketones (Negative) Urine Blood (Negative) Urine Nitrite (Negative) Urine Bilirubin (Negative) Urine Urobilinogen (<2.0) mg/dL Ur Leukocyte Esterase (Negative) Urine RBC (0-5) /hpf Urine WBC (0-5) /hpf Ur Squamous Epith Cells (0-4) /hpf 02/06/18 02/06/18 Range/Units 15:29 15:54 WBC (3.8-10.6) k/uL RBC (3.80-5.40) m/uL Hgb (11.4-16.0) gm/dL Hct (34.0-46.0) % MCV (80.0-100.0) fL MCH (25.0-35.0) pg MCHC (31.0-37.0) g/dL RDW (11.5-15.5) % Plt Count (150-450) k/uL Neutrophils % % Lymphocytes % % Monocytes % % Eosinophils % % Basophils % % Neutrophils # (1.3-7.7) k/uL Lymphocytes # (1.0-4.8) k/uL Monocytes # (0-1.0) k/uL Eosinophils # (0-0.7) k/uL Basophils # (0-0.2) k/uL Hypochromasia Microcytosis Sodium (137-145) mmol/L Potassium (3.5-5.1) mmol/L Chloride (98-107) mmol/L Carbon Dioxide (22-30) mmol/L Anion Gap mmol/L BUN (7-17) mg/dL Creatinine (0.52-1.04) mg/dL Est GFR (CKD-EPI)AfAm (>60 ml/min/1.73 sqM) Est GFR (CKD-EPI)NonAf (>60 ml/min/1.73 sqM) Glucose (74-99) mg/dL Plasma Lactic Acid Shawn (0.7-2.0) mmol/L Calcium (8.4-10.2) mg/dL Total Bilirubin (0.2-1.3) mg/dL Conjugated Bilirubin (0.0-0.3) mg/dL Unconjugated Bilirubin (0.0-1.1) mg/dL Delta Bilirubin (0.0-0.2) mg/dL AST (14-36) U/L ALT (9-52) U/L Alkaline Phosphatase (38-126) U/L Troponin I <0.012 (0.000-0.034) ng/mL Total Protein (6.3-8.2) g/dL Albumin (3.5-5.0) g/dL Lipase (23-300) U/L Urine Color Light Yellow Urine Appearance Clear (Clear) Urine pH 6.5 (5.0-8.0) Ur Specific [place] 1.008 (1.001-1.035) Urine Protein 1+ H (Negative) Urine Glucose (UA) Negative (Negative) Urine Ketones 1+ H (Negative) Urine Blood Negative (Negative) Urine Nitrite Negative (Negative) Urine Bilirubin Negative (Negative) Urine Urobilinogen <2.0 (<2.0) mg/dL Ur Leukocyte Esterase Negative (Negative) Urine RBC <1 (0-5) /hpf Urine WBC 1 (0-5) /hpf Ur Squamous Epith Cells 1 (0-4) /hpf Disposition Clinical Impression: Generalized abdominal pain, Nausea Disposition: HOME SELF-CARE Condition: Good Instructions: Abdominal Pain (ED) Additional Instructions: Follow up with your PCP on Wednesday or Wednesday. Return to ER if worsening abdominal pain or unable to eat or drink. Is patient prescribed a controlled substance at d/c from ED?: No
[2018-02-06 15:42] LABS: Basophils % (A) 1 %; Eosinophils # (A) 0.2 k/uL (0-0.7); Eosinophils % (A) 3 %; HCT 44.8 % (34.0-46.0); Hypochromasia Marked; Lymphocytes # (A) 1.9 k/uL (1.0-4.8); Lymphocytes % (A) 33 %; MCHC 29.1 g/dL (31.0-37.0); Mean Platelet Volume 6.2; Microcytosis Slight; Monocytes # (A) 0.2 k/uL (0-1.0); Monocytes % (A) 4 %; Neutrophils # (A) 3.5 k/uL (1.3-7.7); Neutrophils % (A) 59 %; Platelet Count 203 k/uL (150-450); RBC 6.21 m/uL (3.80-5.40); RDW 15.6 % (11.5-15.5); WBC 5.9 k/uL (3.8-10.6)
[2018-02-06 15:50] LABS: ALT 42 U/L (9-52); AST 35 U/L (14-36); Albumin 4.3 g/dL (3.5-5.0); Alkaline Phosphatase 111 U/L (38-126); Anion Gap 11 mmol/L; Bilirubin, Delta 0.3 mg/dL (0.0-0.2); Bilirubin,Unconjugated 0.2 mg/dL (0.0-1.1); Blood Urea Nitrogen 13 mg/dL (7-17); Calcium 9.9 mg/dL (8.4-10.2); Carbon Dioxide 26 mmol/L (22-30); Chloride 101 mmol/L (98-107); Glucose 207 mg/dL (74-99); Lipase 62 U/L (23-300); Potassium 4.3 mmol/L (3.5-5.1); Sodium 138 mmol/L (137-145); Total Bilirubin 0.5 mg/dL (0.2-1.3); Total Protein 7.6 g/dL (6.3-8.2)
[2018-02-06 16:05] LABS: Appearance,Urine Clear (Clear); Bilirubin,Urine Negative (Negative); Blood,Urine Negative (Negative); Color,Urine Light Yellow; Glucose,Urine (UA) Negative (Negative); Ketones,Urine 1+ (Negative); Leukocyte Esterase,Urine Negative (Negative); Nitrite,Urine Negative (Negative); PH, Urine 6.5 (5.0-8.0); Protein,Urine 1+ (Negative); RBC,Urine <1 /hpf (0-5); Specific Gravity,Urine 1.008 (1.001-1.035); Squamous Epithelial Cell,Urine 1 /hpf (0-4); Urobilinogen,Urine <2.0 mg/dL (<2.0); WBC,Urine 1 /hpf (0-5)
--- NOTE | 2018-02-06 16:52 | CT ---
EXAMINATION TYPE: CT abdomen pelvis w con DATE OF EXAM: 02/06/2018 COMPARISON: None HISTORY: lower abdominal pain CT DLP: 2077.4 mGycm Automated exposure control for dose reduction was used. TECHNIQUE: Helical acquisition of images was performed from the lung bases through the pelvis. CONTRAST: Performed without Oral Contrast and with IV Contrast, patient injected with 100mL mL of Isovue 300. FINDINGS: Lung bases are clear of consolidation. There is no pleural effusion. There is no pericardial effusion . Liver shows no focal defect. Gallbladder appears normal. Bile ducts are not dilated. Spleen and pancr eas appear normal. There is no adrenal mass. Kidneys show satisfactory contrast opacification. There is no hydronephrosi s. There is no retroperitoneal adenopathy. There is no ascites. Bladder distends smoothly. There is n o free fluid in the pelvis. There is previous surgery at the rectosigmoid junction. Uterus is antever jayson. There is mild spurring in the lumbar spine. There is no compression fracture. There is no intest inal wall thickening. There are no dilated loops. Appendix is not seen. There is no sign of appendici tis. IMPRESSION: PREVIOUS SURGERY. NO SIGN OF ACUTE ABDOMEN AND PELVIS. I DO NOT SEE A CAUSE FOR LOWER ABDOMINAL PAIN. MILD ATHEROSCLEROTIC VASCULAR DISEASE.
--- NOTE | 2018-02-06 17:47 | XR ---
EXAMINATION TYPE: XR chest 2V DATE OF EXAM: 02/06/2018 COMPARISON: 01/10/2018 HISTORY: Abdominal pain TECHNIQUE: Frontal and lateral views of the chest are obtained. FINDINGS: There is no heart failure nor confluent pneumonic infiltrate. Costophrenic angles are elena r. Heart size is normal. IMPRESSION: No active cardiopulmonary disease. No change. Normal heart.
[2018-02-06] MEDS ORDERED: ONDANSETRON 4 MG ODT STARTER PACK 2 TAB BTL PO STA (17:57)
[2018-02-06 18:04] VITALS: BP 151/73; PULSE 78; RESP 18; TEMP 98.2
== END 2018-02-06 18:05 | disposition home or self-care (01) ==
LOC: EC 14:37
DX: R11.0 Nausea (principal); R10.84 Generalized abdominal pain; R07.89 Other chest pain; R14.0 Abdominal distension (gaseous); R14.2 Eructation; R32 Unspecified urinary incontinence; E78.5 Hyperlipidemia, unspecified; I10 Essential (primary) hypertension; J44.9 Chronic obstructive pulmonary disease, unspecified; E10.9 Type 1 diabetes mellitus without complications; M19.90 Unspecified osteoarthritis, unspecified site; Z87.891 Personal history of nicotine dependence; Z88.0 Allergy status to penicillin; Z88.2 Allergy status to sulfonamides; Z79.4 Long term (current) use of insulin; Z79.51 Long term (current) use of inhaled steroids; Z79.82 Long term (current) use of aspirin; Z79.899 Other long term (current) drug therapy; Z87.19 Personal history of other diseases of the digestive system; Z90.49 Acquired absence of other specified parts of digestive tract; Z95.9 Presence of cardiac and vascular implant and graft, unspecified
CPT/HCPCS: 36415; 80048; 80076; 83605; 83690; 84484; 85025; 81001; 71046; 74177; 99285; 96374; 96375; 96361; J2270; J2405; S0119

== ENCOUNTER → 2018-03-09 | Outpatient (CLI) | payer MEDICARE, OTHER ==
--- NOTE | 2018-03-09 15:10 | XR ---
Cervical spine HISTORY: Neck pain 5 views of the cervical spine Correlated prior exam 05/30/2014 Similar findings. There is multilevel spondylosis. Loss of disc height present at C2-3, C5-6 and C6-7 , C7-T1. Prevertebral soft tissues are normal. Cervical vertebral bodies show preserved height and al ignment. Foraminal encroachment present at C5-6, C7-T1 on the left. Bone mineralization is maintained . Multilevel facet arthropathy. IMPRESSION: Degenerative disc disease and facet arthropathy.
== END | disposition home or self-care (01) ==
LOC: RADXRMAIN 13:31
PROVIDERS: ATTEND Internal Medicine
DX: M50.30 Other cervical disc degeneration, unspecified cervical region (principal); M46.92 Unspecified inflammatory spondylopathy, cervical region
CPT/HCPCS: 72050

== ENCOUNTER → 2018-04-04 | Outpatient (CLI) | payer MEDICARE, OTHER ==
--- NOTE | 2018-04-04 13:47 | MR ---
EXAMINATION TYPE: MR shoulder RT wo con DATE OF EXAM: 04/04/2018 COMPARISON: None HISTORY: Right shoulder pain TECHNIQUE: Multiplanar, multisequence imaging of the right shoulder is performed without contrast. FINDINGS: Exam limited by motion artifact. Rotator Cuff: There is abnormal signal involving the distal margin of the supraspinatus tendon. There is a localized 6 mm area of signal distally prior to the insertion compatible with a partial tear. N o retraction. Subscapularis tendon intact. There is mild diffuse muscular atrophy. Infraspinatus tendon demonstrates an area of increased signal at the insertion measuring 3 mm suggest marianne of tendinosis. Partial undersurface tear in the differential diagnosis. Acromioclavicular Joint: Hypertrophic change and arthropathy of the AC joint resulting in impingement of the supraspinatus tendon and muscle. Glenohumeral Joint: No joint effusion. There is reduced definition of the inferior glenohumeral ligam ent which is felt to BE most likely related to motion rather than strain correlate clinically. Labrum: The labrum appears grossly intact given limitation of non-arthrogram study. Biceps Tendon: The long head of biceps is in normal location within bicipital groove. Increased fluid surrounding the tendon is compatible with tendinosis. Bone marrow signal: Subcentimeter areas of abnormal signal involving the head of the humerus likely i n the basis of impingement.. IMPRESSION: 1. There is a 7 mm partial tear distal margin supraspinatus tendon with no evidence of retraction. 2. There is tendinosis and intrasubstance tear insertion infraspinatus tendon with no retraction. 3. Impingement secondary to AC joint arthropathy. 4. Bicipital tendinosis.
== END ==
LOC: RADMRIMAIN 11:39
PROVIDERS: ATTEND Internal Medicine
DX: S46.811A Strain of other muscles, fascia and tendons at shoulder and upper arm level, right arm, initial encounter (principal); M12.811 Other specific arthropathies, not elsewhere classified, right shoulder; M75.21 Bicipital tendinitis, right shoulder

== ENCOUNTER → 2019-03-24 | Outpatient (CLI) | payer MEDICARE, OTHER ==
--- NOTE | 2019-03-27 14:00 | MM ---
Reason for exam: screening (asymptomatic). Last mammogram was performed 1 year and 2 months ago. History: Patient is postmenopausal. Excisional biopsy of the right breast, 2011. Physical Findings: A clinical breast exam by your physician is recommended on an annual basis and results should be correlated with mammographic findings. MG Screening Mammo w CAD Bilateral CC and MLO view(s) were taken. Prior study comparison: February 03, 2018, bilateral MG screening mammo w CAD. December 23, 2016, right breast MG work up mamm w CAD RT. There are scattered fibroglandular densities. Previous mammotome biopsy in the right breast. Stable two groups of calcifications on the right and one on the left. No significant changes when compared with prior studies. ASSESSMENT: Benign, BI-RAD 2 RECOMMENDATION: Routine screening mammogram of both breasts in 1 year.
== END | disposition home or self-care (01) ==
LOC: RADMAMWWP 13:58
PROVIDERS: ATTEND Internal Medicine
DX: Z12.31 Encounter for screening mammogram for malignant neoplasm of breast (principal)
CPT/HCPCS: 77067

== ENCOUNTER → 2020-05-16 | Outpatient (CLI) | payer MEDICARE, OTHER ==
--- NOTE | 2020-05-20 08:23 | MM ---
Reason for exam: screening (asymptomatic). Last mammogram was performed 1 year and 2 months ago. History: Patient is postmenopausal. Excisional biopsy of the right breast, 2011. Physical Findings: A clinical breast exam by your physician is recommended on an annual basis and results should be correlated with mammographic findings. MG Screening Mammo w CAD Bilateral CC and MLO view(s) were taken. Prior study comparison: March 24, 2019, bilateral MG screening mammo w CAD. February 03, 2018, bilateral MG screening mammo w CAD. There are scattered fibroglandular densities. Finding: There are typically benign dystrophic, round, grouped/clustered calcifications in both breasts. Previous mammotome biopsy in the right breast. There is no discrete abnormality. ASSESSMENT: Benign, BI-RAD 2 RECOMMENDATION: Routine screening mammogram of both breasts in 1 year.
== END | disposition home or self-care (01) ==
LOC: RADMAMWWP 10:55
PROVIDERS: ATTEND Internal Medicine
DX: Z12.31 Encounter for screening mammogram for malignant neoplasm of breast (principal)
CPT/HCPCS: 77067

== ENCOUNTER 2020-06-02 13:22 | Emergency (ER) | payer OTHER ==
[2020-06-02 13:28] VITALS: TEMP 98.7
[2020-06-02] MEDS ORDERED: FLUCONAZOLE 150 MG TAB PO STA (14:11)
[2020-06-02 14:27] LABS: Glucose,Whole Blood 149 mg/dL (75-99)
--- NOTE | 2020-06-02 14:38 | ED ---
Female Urogenital HPI - General Chief complaint: Urogenital Stated complaint: Female Time Seen by Provider: 06/02/20 13:25 Source: patient Mode of arrival: ambulatory Limitations: no limitations - History of Present Illness Initial comments: Patient is a 74 year old female with past medical history of diabetes, hypertension, urinary incontinence who presents to the emergency room with reported vaginal pain and itching. It states that she normally wears briefs. 3 days ago she began having intense itching to the inguinal folds and vulva. She has been using "[employer]" vagisil without improvement in her symptoms. Also admits to dysuria. Denies hematuria or d difficulty voiding. Denies diarrhea, constipation, melenic stools or hematochezia. Patient has not been sextually active in 30 years. Denies any vaginal bleeding or discharge. No other alleviating, precipitating or modifying factors - Related Data Home Medications Medication Instructions Recorded Confirmed Aspirin EC [Ecotrin Low Dose] 81 mg PO DAILY 07/24/16 02/06/18 INSULIN LISPRO (humaLOG) [HumaLOG] See Protocol SQ ACHS 07/24/16 02/06/18 Metoprolol Succinate (ER) [Toprol 50 mg PO DAILY 07/24/16 02/06/18 Xl] Pravastatin Sodium [Pravachol] 20 mg PO HS 07/24/16 02/06/18 lisinopriL [Zestril] 20 mg PO DAILY 07/24/16 02/06/18 Ergocalciferol (Vitamin D2) 50,000 unit PO WE 02/06/18 02/06/18 [Vitamin D2] Fluticasone Nasal [place] [Flonase 1 spr EA NOSTRIL DAILY 02/06/18 02/06/18 Nasal [place]] Insulin Glargine,Hum.rec.anlog 60 units SQ HS 02/06/18 02/06/18 [Toujeo Solostar] Ipratropium/Albuterol Sulfate 1 puff INHALATION RT-QID PRN 02/06/18 02/06/18 [Combivent Respimat Inhaler] L.acidoph,Paracasei, B.lactis 1 cap PO DAILY 02/06/18 02/06/18 [Probiotic] Polyethylene Glycol 3350 [Miralax] 17 gm PO DAILY 02/06/18 02/06/18 Previous Rx's Medication Instructions Recorded Cephalexin [Keflex] 500 mg PO Q12HR #10 cap 06/02/20 Fluconazole [Diflucan] 150 mg PO ONCE #1 tab 06/02/20 Terconazole 0.8% Vaginal Cream 1 applic VAGINAL HS 3 Days #30 gm 06/02/20 [Terazol 3] Allergies Allergy/AdvReac Type Severity Reaction Status Date / Time Penicillins Allergy Rash/Hives Verified 06/02/20 13:28 Sulfa (Sulfonamide Allergy Rash/Hives Verified 06/02/20 13:28 Antibiotics) Review of Systems ROS Statement: Those systems with pertinent positive or pertinent negative responses have been documented in the HPI. ROS Other: All systems not noted in ROS Statement are negative. Past Medical History Past Medical History: Diabetes Mellitus, GERD/Reflux, Hyperlipidemia, Hypertension, Osteoarthritis (OA) Additional Past Medical History / Comment(s): urinary incont, uti, tole in 1995 had a touch of copd-quit smoking, eczema, chronic back pain, sciatica, ddd, herniated disc, per past med hx hep 04-18-86, menigitis 07-19-1969, diverticulitis History of Any Multi-Drug Resistant Organisms: None Reported Past Surgical History: Section, Heart Catheterization Additional Past Surgical History / Comment(s): x3 c-sections, cataracts,lt breast bx-neg, Colon resection 09/2018 Past Anesthesia/Blood Transfusion Reactions: No Reported Reaction Past Psychological History: No Psychological Hx Reported Smoking Status: Never smoker Past Alcohol Use History: None Reported Past Drug Use History: None Reported - Past Family History Mother Family Medical History: Cancer Additional Family Medical History / Comment(s): brain ca Father Family Medical History: Cancer Additional Family Medical History / Comment(s): prostate cancer General Exam Limitations: no limitations General appearance: alert, in no apparent distress Head exam: Present: atraumatic, normocephalic, normal inspection Eye exam: Present: normal appearance, PERRL, EOMI. Absent: scleral icterus, conjunctival injection, periorbital swelling ENT exam: Present: normal exam, mucous membranes moist Neck exam: Present: normal inspection. Absent: tenderness, meningismus, lymphadenopathy Respiratory exam: Present: normal lung sounds bilaterally. Absent: respiratory distress, wheezes, rales, rhonchi, stridor Cardiovascular Exam: Present: regular rate, normal rhythm, normal heart sounds. Absent: systolic murmur, diastolic murmur, rubs, gallop, clicks GI/Abdominal exam: Present: soft, normal bowel sounds. Absent: distended, tenderness, guarding, rebound, rigid External exam: Present: normal external exam, other (no crepitance. minimal white vaginal discharge. No swelling. No bleeding. No signs of fourniers). Ab sent: lesions Extremities exam: Present: normal inspection, full ROM, normal capillary refill. Absent: tenderness, pedal edema, joint swelling, calf tenderness Back exam: Present: normal inspection Neurological exam: Present: alert, oriented X3, CN II-XII intact Psychiatric exam: Present: normal affect, normal mood Skin exam: Present: warm, dry, intact, normal color. Absent: rash Course Vital Signs 06/02/20 06/02/20 13:25 15:34 Temperature 98.7 F Pulse Rate 100 91 Respiratory 20 18 Rate Blood Pressure 166/79 166/91 O2 Sat by Pulse 98 97 Oximetry Medical Decision Making - Medical Decision Making Upon arrival patient is placed into room 26. A thorough history and physical exam was performed. Patient does provide a urine sample. A genital exam is performed with a female nurse semiconductor packages leak tester present. Patient is sent for a KUB to evaluate for subcutaneous air. No crepitance appreciated. Accu-Chek demonstrates a glucose of 149. Urinalysis demonstrates large leukocyte esterase with 37 white blood cells. As the patient is reporting dysuria I did recommend treatment of this with Keflex for 5 days. Patient was given a dose of Diflucan in the emergency department and is to take a second Diflucan pill after she finishes her course of Keflex. Patient is additionally requesting something topically to placed to the site for her discomfort. Patient was given a prescription for Terazol cream. Patient needs to follow-up with her primary care doctor in 2-4 days. Return to the emergency room for any new or worsening symptoms. KUB demonstrates no subcutaneous air. Patient clinically does not appear to have Carlos's gangrene. Strict return parameters were discussed. Patient discharged home in stable condition - Lab Data Lab Results 06/02/20 06/02/20 Range/Units 14:23 14:26 POC Glucose (mg/dL) 149 H (75-99) mg/dL POC Glu Marketing Proposal Coordinator ID Lilian Tineo Urine Color Yellow Urine Appearance Clear (Clear) Urine pH 5.5 (5.0-8.0) Ur Specific [place] 1.028 (1.001-1.035) Urine Protein Trace H (Negative) Urine Glucose (UA) 4+ H (Negative) Urine Ketones Negative (Negative) Urine Blood Negative (Negative) Urine Nitrite Negative (Negative) Urine Bilirubin Negative (Negative) Urine Urobilinogen <2.0 (<2.0) mg/dL Ur Leukocyte Esterase Large H (Negative) Urine RBC 5 (0-5) /hpf Urine WBC 37 H (0-5) /hpf Ur Squamous Epith Cells 3 (0-4) /hpf Disposition Clinical Impression: Vaginal candidiasis Disposition: HOME SELF-CARE Condition: Stable Instructions (If sedation given, give patient instructions): Yeast Infection (ED) Additional Instructions: Please follow-up with your primary care doctor in 2-4 days. Take the 5 days of the Keflex (antibiotic). Once your finish the Keflex, take the Diflucan tablet for the yeast infection. You may use the cream today. Return to the emergency room for any new or worsening symptoms Prescriptions: Fluconazole [Diflucan] 150 mg PO ONCE #1 tab Cephalexin [Keflex] 500 mg PO Q12HR #10 cap Terconazole 0.8% Vaginal Cream [Terazol 3] 1 applic VAGINAL HS 3 Days #30 gm Is patient prescribed a controlled substance at d/c from ED?: No Referrals: Freddy Elise DO [Primary Care Provider] - 1-2 days Time of Disposition: 15:32
[2020-06-02 14:39] LABS: Appearance,Urine Clear (Clear); Bilirubin,Urine Negative (Negative); Blood,Urine Negative (Negative); Color,Urine Yellow; Glucose,Urine (UA) 4+ (Negative); Ketones,Urine Negative (Negative); Leukocyte Esterase,Urine Large (Negative); Nitrite,Urine Negative (Negative); PH, Urine 5.5 (5.0-8.0); Protein,Urine Trace (Negative); RBC,Urine 5 /hpf (0-5); Specific Gravity,Urine 1.028 (1.001-1.035); Squamous Epithelial Cell,Urine 3 /hpf (0-4); Urobilinogen,Urine <2.0 mg/dL (<2.0); WBC,Urine 37 /hpf (0-5)
--- NOTE | 2020-06-02 15:11 | XR ---
EXAMINATION TYPE: XR KUB DATE OF EXAM: 06/02/2020 COMPARISON: NONE HISTORY: Abdominal pain TECHNIQUE: 2 views upright FINDINGS: There is no sign of intestinal obstruction or pneumoperitoneum. Fecal pattern is normal. Nighat ng bases are clear. There are no pathologic calcifications over the kidneys. There are multiple soft tissue calcifications at the hips related probably to injection sites. There is no evidence of abdomi nal mass. IMPRESSION: Nonacute abdomen.
[2020-06-02 15:35] VITALS: BP 166/91; PULSE 91; RESP 18
== END 2020-06-02 15:40 | disposition home or self-care (01) ==
LOC: EC 13:22
DX: B37.3 Candidiasis of vulva and vagina (principal); I10 Essential (primary) hypertension; E11.9 Type 2 diabetes mellitus without complications; M19.90 Unspecified osteoarthritis, unspecified site; J44.9 Chronic obstructive pulmonary disease, unspecified; E78.5 Hyperlipidemia, unspecified; G89.29 Other chronic pain; M54.9 Dorsalgia, unspecified; Z79.51 Long term (current) use of inhaled steroids; Z79.899 Other long term (current) drug therapy; Z79.4 Long term (current) use of insulin; Z79.82 Long term (current) use of aspirin; Z88.2 Allergy status to sulfonamides; Z88.0 Allergy status to penicillin
CPT/HCPCS: 36415; 74018; 81001; 99283

== ENCOUNTER 2020-11-05 07:46 | Inpatient (IN) | payer MEDICARE, OTHER ==
--- NOTE | 2020-11-05 08:43 | ED ---
Lower Extremity Injury HPI - General Chief Complaint: Extremity Injury, Lower Stated Complaint: Fall/ankle injury Time Seen by Provider: 11/05/20 07:48 Source: patient, EMS Mode of arrival: EMS - History of Present Illness Initial Comments: Patient is a 75-year-old female with history of diabetes, hypertension, osteoarthritis, presenting to the emergency department via EMS after she fell while walking her dog. She is complaining of severe left ankle pain, she is unable to airway. Patient received a total of 100 g of fentanyl and 4 mg of Zofran and the EMS prior to arrival. She states she tripped on the curb while trying to tack picker her dogs poop. She states her left ankle went underneath her. Currently her pain is a 7/10. She denies hitting her head, she states she did hit her right knee slightly but it feels okay. She admits to previous meniscal surgery of her right knee, no left extremity surgeries. She denies any chest pain or shortness of breath, no upper extremity pain, no abdominal pain. She denies any further complaints from this fall. Upon arrival to the ER, her vitals are stable. - Related Data Home Medications Medication Instructions Recorded Confirmed Aspirin EC [Ecotrin Low Dose] 81 mg PO DAILY 07/24/16 11/05/20 Pravastatin Sodium [Pravachol] 20 mg PO HS 07/24/16 11/05/20 lisinopriL [Zestril] 20 mg PO DAILY 07/24/16 11/05/20 Fluticasone Nasal [place] [Flonase 1 spr EA NOSTRIL DAILY 02/06/18 11/05/20 Nasal [place]] Calcium Carbonate [Calcium] 1,200 mg PO BID 11/05/20 11/05/20 Cholecalciferol [Vitamin D3 (25 50 mcg PO DAILY 11/05/20 11/05/20 Mcg = 1000 Iu)] Dulaglutide [Trulicity] 1.5 mg SQ TH 11/05/20 11/05/20 Empagliflozin [Jardiance] 25 mg PO DAILY 11/05/20 11/05/20 Ipratropium-Albuterol Nebulize 3 ml INHALATION RT-QID PRN 11/05/20 11/05/20 [Duoneb 0.5 mg-3 mg/3 ml Soln] Metoprolol Succinate (ER) [Toprol 100 mg PO DAILY 11/05/20 11/05/20 Xl] Pantoprazole Sodium 40 mg PO DAILY 11/05/20 11/05/20 Pioglitazone [Actos] 15 mg PO DAILY 11/05/20 11/05/20 Psyllium Husk (with Sugar) 5 ml PO DAILY 11/05/20 11/05/20 [Metamucil Powder] amLODIPine [Norvasc] 5 mg PO DAILY 11/05/20 11/05/20 metFORMIN HCL [Glucophage] 1,000 mg PO BID 11/05/20 11/05/20 Allergies Allergy/AdvReac Type Severity Reaction Status Date / Time Penicillins Allergy Rash/Hives Verified 11/05/20 08:55 Sulfa (Sulfonamide Allergy Rash/Hives Verified 11/05/20 08:55 Antibiotics) Review of Systems ROS Statement: Those systems with pertinent positive or pertinent negative responses have been documented in the HPI. ROS Other: All systems not noted in ROS Statement are negative. Past Medical History Past Medical History: Diabetes Mellitus, GERD/Reflux, Hyperlipidemia, Hypertension, Osteoarthritis (OA) Additional Past Medical History / Comment(s): urinary incont, uti, tole in 1995 had a touch of copd-quit smoking, eczema, chronic back pain, sciatica, ddd, herniated disc, per past med hx hep 04-18-86, menigitis 07-19-1969, diverticulitis History of Any Multi-Drug Resistant Organisms: None Reported Past Surgical History: Section, Heart Catheterization Additional Past Surgical History / Comment(s): x3 c-sections, cataracts,lt breast bx-neg, Colon resection 09/2018 Past Anesthesia/Blood Transfusion Reactions: No Reported Reaction Past Psychological History: No Psychological Hx Reported Smoking Status: Never smoker Past Alcohol Use History: None Reported Past Drug Use History: None Reported - Past Family History Mother Family Medical History: Cancer Additional Family Medical History / Comment(s): brain ca Father Family Medical History: Cancer Additional Family Medical History / Comment(s): prostate cancer General Exam - General Exam Comments Initial Comments: GENERAL: Patient is well-developed and well-nourished. Patient is nontoxic and in mild distress. HEAD: Atraumatic, normocephalic. No hematomas, no signs of fracture. EYES: Pupils equal round and reactive to light, extraocular movements intact, sclera anicteric, conjunctiva are normal. Eyelids were unremarkable. ENT: TMs normal, nares patent, oropharynx clear without exudates. Moist mucous membranes. NECK: Normal range of motion, supple without lymphadenopathy or JVD. There is no midline tenderness. LUNGS: Unlabored respirations. Breath sounds clear to auscultation bilaterally and equal. No wheezes rales or rhonchi. HEART: Regular rate and rhythm without murmurs, rubs or gallops. ABDOMEN: Soft, nontender, normoactive bowel sounds. No guarding, no rebound. No masses appreciated. : Deferred MUSCULOSKELETAL: Patient has severe tenderness with palpation of the left ankle, she is able to wiggle her toes, neurovascular intact. She has some mild pain of her mid tib- fib region, no obvious deformity in this region. She has no left knee pain or left hip pain. No clubbing or cyanosis. NEUROLOGICAL: Patient is alert and oriented x 3. Motor and sensory are also intact. Cranial nerves II through XII grossly intact. Symmetrical smile. Normal speech. PSYCH: Normal mood, normal affect. SKIN: Warm, Dry, normal turgor, no rashes or lesions noted. Course Vital Signs 11/05/20 07:49 Temperature 98.1 F Pulse Rate 61 Respiratory 18 Rate Blood Pressure 143/47 O2 Sat by Pulse 98 Oximetry Procedures - Orthopedic Splinting/Casting Injury #1 Side: left Lower Extremity Injury Location: short leg, ankle Lower Extremity Immobilizer: posterior splint, stirrup splint, Andriy wrap, syn thetic pre-padded splint Medical Decision Making - Medical Decision Making Patient is a 75-year-old female with history of diabetes, hypertension, presenting after she tripped while trying to tack picker her dogs poop. She is having severe left ankle pain. No other injuries from her fall. She did not hit her head. X-rays of the left ankle reveal a displaced fracture of the distal fibula and medial malleolus with distortion of the ankle mortise and subluxation of the tibia relative to the talus. Case was discussed with orthopedics, Jean, who agrees to admission with Dr. Lacey, will surgery possible for . We will order preop labs, EKG and chest x-ray, I will put on medicine for preop clearance. Patient is in agreement with this plan of care. I did place a splint. Case discussed with Dr. Holcomb. - Lab Data Lab Results 11/05/20 Range/Units 09:55 POC Glucose (mg/dL) 89 (75-99) mg/dL POC Glu Gas Meter Repair Supervisor ID PATRICIA Interiano Andre - EKG Data EKG Comments: Sinus bradycardia, septal infarct, age undetermined, no signs of an acute pr ocess. Ventricular rate 57, [place] interval 178, QT 430. Disposition Clinical Impression: Closed fracture of distal end of left fibula and tibia, Subluxation of tarsal joint of left foot Disposition: ADMITTED IP TO THIS HOSP Condition: Stable Decision Date: 11/05/20 Decision Time: 09:53
--- NOTE | 2020-11-05 08:59 | XR ---
EXAMINATION TYPE: XR ankle limited LT DATE OF EXAM: 11/05/2020 COMPARISON: NONE HISTORY: Pain FINDINGS: Two views of the ankle demonstrate a nondisplaced fracture of the distal fibula and medial malleolus. There is subluxation partial dislocation of the tibia relative to the talus. Soft tissue edema and c alcaneal spurs noted. IMPRESSION: 1. Displaced fractures of the distal fibula and medial malleolus with distortion of the ankle mortise and subluxation of the tibia relative to the talus.
--- NOTE | 2020-11-05 09:00 | XR ---
EXAMINATION TYPE: XR tibia fibula LT DATE OF EXAM: 11/05/2020 COMPARISON: NONE HISTORY: Pain TECHNIQUE: Two views are submitted. FINDINGS: The osseous structures are intact. Severe narrowing of the medial compartment of the knee joint. Frac tures of the distal fibula and medial malleolus nondisplaced. Subluxation of the tibia. IMPRESSION: 1. Fractures of the distal tibia and fibula with subluxation of the talus.
[2020-11-05] MEDS ORDERED: HYDROmorphone 1 MG/ML 1 ML SYRINGE IVP STA (09:22)
[2020-11-05] MEDS ORDERED: IBUPROFEN 400 MG TAB PO PRN (09:49)
[2020-11-05] MEDS ORDERED: ONDANSETRON 4 MG/2 ML VIAL IVP PRN (09:49)
[2020-11-05] MEDS ORDERED: NALOXONE 0.4 MG/ML 1 ML VIAL IV PRN (09:49)
[2020-11-05 09:56] LABS: Glucose,Whole Blood 89 mg/dL (75-99)
[2020-11-05 10:33] LABS: Partial Thromboplastin Time 23.2 sec (22.0-30.0); Prothrombin Time 11.1 sec (9.0-12.0)
[2020-11-05 10:36] LABS: Basophils % (A) 1 %; Eosinophils # (A) 0.4 k/uL (0-0.7); Eosinophils % (A) 7 %; HCT 46.2 % (34.0-46.0); Hypochromasia Moderate; Lymphocytes # (A) 1.8 k/uL (1.0-4.8); Lymphocytes % (A) 29 %; MCH 22.4 pg (25.0-35.0); MCHC 30.4 g/dL (31.0-37.0); MCV 73.6 fL (80.0-100.0); Mean Platelet Volume 7.3; Microcytosis Slight; Monocytes # (A) 0.5 k/uL (0-1.0); Monocytes % (A) 8 %; Neutrophils # (A) 3.4 k/uL (1.3-7.7); Neutrophils % (A) 55 %; Platelet Count 239 k/uL (150-450); RBC 6.28 m/uL (3.80-5.40); RDW 15.3 % (11.5-15.5); WBC 6.2 k/uL (3.8-10.6)
--- NOTE | 2020-11-05 10:44 | XR ---
EXAMINATION TYPE: XR chest 2V DATE OF EXAM: 11/05/2020 COMPARISON: 02/06/2018 HISTORY: Preoperative TECHNIQUE: Frontal and lateral views of the chest are obtained. FINDINGS: There is no focal air space opacity, pleural effusion, or pneumothorax seen. The cardiac silhouette size is unchanged in size. IMPRESSION: No acute cardiopulmonary process.
[2020-11-05] MEDS: MORPHINE SULFATE 4 MG/ML SYRINGE IV PRN ×3 (12:48→21:15)
--- NOTE | 2020-11-05 13:18 | P.HPOR ---
History of Present Illness H&P Date: 11/05/20 Chief Complaint: Left ankle pain and inability to ambulate Patient is a very pleasant 75-year-old female who is seen and examined emergency department in room #16 for further evaluation of her left ankle. 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 She states she tried to position herself better and fell backwards. Her left leg stuck and she fell backwards. She's had significant pain in her left lower extremity and ankle since that time. She's been unable to weight-bear the left lower extremity. She was brought to [facility] for further evaluation. She was found to have evidence of displaced fracture of the left distal fibula and medial malleolus with distortion of the ankle mortise and subluxation of the tibia relative to the talus. She was placed in a splint. She is nonweightbearing on the left lower extremity. She has been admitted to our service. Medicine has been consulted for medical clearance prior to surgical intervention. Patient continues to have pain in her left ankle. She has been receiving morphine and ibuprofen for pain control. Patient to comorbidities including diabetes mellitus, hyperlipidemia, hypertension, and osteoarthritis. Past Medical History Past Medical History: Diabetes Mellitus, GERD/Reflux, Hyperlipidemia, Hypertension, Osteoarthritis (OA) Additional Past Medical History / Comment(s): urinary incont, uti, tole in 1995 had a touch of copd-quit smoking, eczema, chronic back pain, sciatica, ddd, herniated disc, per past med hx hep 04-18-86, menigitis 07-19-1969, diverticulitis History of Any Multi-Drug Resistant Organisms: None Reported Past Surgical History: Section, Heart Catheterization Additional Past Surgical History / Comment(s): x3 c-sections, cataracts,lt breas t bx-neg, Colon resection 09/2018 Past Anesthesia/Blood Transfusion Reactions: No Reported Reaction Past Psychological History: No Psychological Hx Reported Smoking Status: Never smoker Past Alcohol Use History: None Reported Past Drug Use History: None Reported - Past Family History Mother Family Medical History: Cancer Additional Family Medical History / Comment(s): brain ca Father Family Medical History: Cancer Additional Family Medical History / Comment(s): prostate cancer Medications and Allergies Home Medications Medication Instructions Recorded Confirmed Type Aspirin EC [Ecotrin Low Dose] 81 mg PO DAILY 07/24/16 11/05/20 History Pravastatin Sodium [Pravachol] 20 mg PO HS 07/24/16 11/05/20 History lisinopriL [Zestril] 20 mg PO DAILY 07/24/16 11/05/20 History Fluticasone Nasal [place] [Flonase 1 spr EA NOSTRIL DAILY 02/06/18 11/05/20 History Nasal [place]] Calcium Carbonate [Calcium] 1,200 mg PO BID 11/05/20 11/05/20 History Cholecalciferol [Vitamin D3 (25 50 mcg PO DAILY 11/05/20 11/05/20 History Mcg = 1000 Iu)] Dulaglutide [Trulicity] 1.5 mg SQ TH 11/05/20 11/05/20 History Empagliflozin [Jardiance] 25 mg PO DAILY 11/05/20 11/05/20 History Ipratropium-Albuterol Nebulize 3 ml INHALATION RT-QID PRN 11/05/20 11/05/20 History [Duoneb 0.5 mg-3 mg/3 ml Soln] Metoprolol Succinate (ER) [Toprol 100 mg PO DAILY 11/05/20 11/05/20 History Xl] Pantoprazole Sodium 40 mg PO DAILY 11/05/20 11/05/20 History Pioglitazone [Actos] 15 mg PO DAILY 11/05/20 11/05/20 History Psyllium Husk (with Sugar) 5 ml PO DAILY 11/05/20 11/05/20 History [Metamucil Powder] amLODIPine [Norvasc] 5 mg PO DAILY 11/05/20 11/05/20 History metFORMIN HCL [Glucophage] 1,000 mg PO BID 11/05/20 11/05/20 History Allergies Allergy/AdvReac Type Severity Reaction Status Date / Time Penicillins Allergy Rash/Hives Verified 11/05/20 08:55 Sulfa (Sulfonamide Allergy Rash/Hives Verified 11/05/20 08:55 Antibiotics) Physical Examination Physical Exam: Patient is awake, alert, and oriented 3 Vital signs stable Good chest excursion with deep inspiration and expiration Bulky splint is intact over the left lower extremity Neurovascularly intact left lower extremity Patient does have difficulty with active range of motion of the toes of the left foot Dressing over the left lower extremity is clean and dry Results Pertinent studies: X-rays of the left tibia, fibula, and ankle taken on 11/05/2020: Displaced fracture of the left distal fibula and medial malleolus with distortion of ankle mortise and subluxation of the tibia relative to the talus; severe osteoarthritis of left medial compartment of the knee - Labs Labs: Abnormal Lab Results - Last 24 Hours (Table) 11/05/20 Range/Units 09:56 RBC 6.28 H (3.80-5.40) m/uL Hct 46.2 H (34.0-46.0) % MCV 73.6 L (80.0-100.0) fL MCH 22.4 L (25.0-35.0) pg MCHC 30.4 L (31.0-37.0) g/dL H & H 11/05/20 Range/Units 09:56 Hgb 14.0 (11.4-16.0) gm/dL Hct 46.2 H (34.0-46.0) % Coagulation 11/05/20 Range/Units 09:56 INR 1.0 (<1.2) Result Diagrams: 11/05/20 09:56 Assessment and Plan Assessment: Assessment: Left bimalleolar ankle fracture with ankle mortise disruption and subluxation of the tibia relative to the talus Left ankle pain Inability to ambulate due to ankle fracture Status post fall Osteoarthritis of the left knee Diabetes mellitus Hyperlipidemia Hypertension Obesity (1) Left ankle pain Current Visit: Yes Status: Acute Code(s): M25.572 - PAIN IN LEFT ANKLE AND JOINTS OF LEFT FOOT SNOMED Code(s): 649253851 (2) Inability to ambulate due to ankle or foot Current Visit: Yes Status: Acute Code(s): R26.2 - DIFFICULTY IN WALKING, NOT ELSEWHERE CLASSIFIED SNOMED Code(s): 488970883 (3) Status post fall Current Visit: Yes Status: Acute Code(s): Z91.81 - HISTORY OF FALLING SNOMED Code(s): 146089532 (4) Osteoarthritis of left knee Current Visit: Yes Status: Acute Code(s): M17.12 - UNILATERAL PRIMARY OSTEOARTHRITIS, LEFT KNEE SNOMED Code(s): 469718597785183 (5) Diabetes mellitus Current Visit: Yes Status: Acute Code(s): E11.9 - TYPE 2 DIABETES MELLITUS WITHOUT COMPLICATIONS SNOMED Code(s): 30653647 (6) Hypertension Current Visit: Yes Status: Acute Code(s): I10 - ESSENTIAL (PRIMARY) HYPERTENSION SNOMED Code(s): 16981019 (7) Hyperlipidemia Current Visit: Yes Status: Acute Code(s): E78.5 - HYPERLIPIDEMIA, UNSPECIFIED SNOMED Code(s): 45428702 (8) Obesity Current Visit: Yes Status: Acute Code(s): E66.9 - OBESITY, UNSPECIFIED SNOMED Code(s): 155511107 (9) Closed fracture of distal end of left fibula and tibia Current Visit: Yes Status: Acute Code(s): S82.302A - UNSP FRACTURE OF LOWER END OF LEFT TIBIA, INIT FOR CLOS FX; S82.832A - OTH FRACTURE OF UPPER AND LOWER END OF LEFT FIBULA, INIT SNOMED Code(s): 742743088 (10) Subluxation of tarsal joint of left foot Current Visit: Yes Status: Acute Code(s): S93.312A - SUBLUXATION OF TARSAL JOINT OF LEFT FOOT, INITIAL ENCOUNTER SNOMED Code(s): 845005018 Plan: Plan: 1. Patient has been discussed in detail Dr. Giuseppe Lacey. Imaging has been reviewed by Dr. Giuseppe Lacey and myself. Patient sustained a fall today, 11/05/2020, resulting in a left bimalleolar ankle fracture with ankle mortise disruption and subluxation of the tibia relative to the talus. She's been unable to ambulate due to her pain and instability of the left ankle since that time. She was placed in a splint for the left lower extremity. She is curr ently keeping the splint elevated. We discussed she should continue to keep the splint elevated and may apply ice over the splint for comfort support as needed. We discussed the significance of her fracture and without surgical intervention to stabilize her fractures she'll most likely be unable to ambulate on her left lower extremity. We did discuss surgical intervention to stabilize her fractures provides the best opportunity for her to be able to increase her mobility, provide better pain control, and allow her to ambulate on the left lower extremity. Patient states at this time she would like to proceed forward with surgical intervention. We did discuss consultation has been placed with medicine for surgical clearance. We will currently planned to schedule surgical intervention for this coming , 11/07/2020. We discussed the proposed surgical intervention is an ORIF of the left ankle for left bimalleolar ankle fracture to be performed by Dr. Giuseppe Lacey. Patient feels this is a good plan of care would like to proceed forward with scheduling surgical intervention. 2. Patient may continue pain control with morphine as prescribed as needed for control of her symptoms. We will also plan at [place] 5 mg/325 mg 1-2 tabs every 6 hours as needed for pain 3. Patient may continue to eat a regular diet today and tomorrow. We did discuss she'll become nothing by mouth starting at midnight on 11/07/2020 in anticipation for surgical intervention 4. Patient is currently waiting for clearance by medicine prior to scheduling surgical intervention. Chest x-ray, EKG, CBC, CMP and PT/INR has been ordered. We'll plan to obtain urinalysis. Time with Patient: Greater than 30 (Including obtaining history, physical examination, reviewing of imaging, and dictation.)
[2020-11-05 14:19] LABS: ALT 55 U/L (4-34); AST 69 U/L (14-36); African American GFR (CKD) >90 (>60 ml/min/1.73 sqM); Albumin 4.3 g/dL (3.5-5.0); Albumin/Globulin Ratio 1.5; Alkaline Phosphatase 119 U/L (38-126); Anion Gap 8 mmol/L; Blood Urea Nitrogen 14 mg/dL (7-17); Calcium 9.4 mg/dL (8.4-10.2); Carbon Dioxide 27 mmol/L (22-30); Chloride 105 mmol/L (98-107); Globulin 2.8 g/dL; Glucose 204 mg/dL (74-99); Non-African American GFR(CKD) 82 (>60 ml/min/1.73 sqM); Potassium 4.8 mmol/L (3.5-5.1); Sodium 140 mmol/L (137-145); Total Bilirubin 0.4 mg/dL (0.2-1.3); Total Protein 7.1 g/dL (6.3-8.2)
[2020-11-05] MEDS: KETOROLAC 15 MG/ML 1 ML VIAL IVP PRN ×2 (14:39→19:44)
--- NOTE | 2020-11-05 15:14 | P.CONS ---
History of Present Illness - Reason for Consult Pre-Op clearance - History of Present Illness 75-year-old pleasant female was admitted forclosed fracture of distal end of fibula and tibia and patient presently has an Andriy bandage to that location. Patient had a fall while walking her dog which was a mechanical fall. Patient denied any syncopal episode. Patient denied any history of congestive heart failure denied any coronary artery disease history but does have history of diabetes mellitus and hypertension. Patient had an EKG which showed normal sinus rhythm mild sinus bradycardia patient is in metoprolol. Patient is on multiple medications for hypertension as well as type 2 diabetes mellitus. Patient denied any fever chills patient is a fairly functional woman. Review of Systems REVIEW OF SYSTEMS: CONSTITUTIONAL: No fever, no malaise, no fatigue. HEENT: No recent visual problems or hearing problems. Denied any sore throat. CARDIOVASCULAR: No chest pain, orthopnea, PND, no palpitations, no syncope. PULMONARY: No shortness of breath, no cough, no hemoptysis. GASTROINTESTINAL: No diarrhea, no nausea, no vomiting, no abdominal pain. NEUROLOGICAL: No headaches, no weakness, no numbness. HEMATOLOGICAL: Denies any bleeding or petechiae. GENITOURINARY: Denies any burning micturition, frequency, or urgency. MUSCULOSKELETAL/RHEUMATOLOGICAL:mentioned in HPI ENDOCRINE: Denies any polyuria or polydipsia. The rest of the 14-point review of systems is negative. Past Medical History Past Medical History: Diabetes Mellitus, GERD/Reflux, Hyperlipidemia, Hypertension, Osteoarthritis (OA) Additional Past Medical History / Comment(s): urinary incont, uti, tole in 1995 had a touch of copd-quit smoking, eczema, chronic back pain, sciatica, ddd, herniated disc, per past med hx hep 04-18-86, menigitis 07-19-1969, diverticulitis History of Any Multi-Drug Resistant Organisms: None Reported Past Surgical History: Section, Heart Catheterization Additional Past Surgical History / Comment(s): x3 c-sections, cataracts,lt breast bx-neg, Colon resection 09/2018 Past Anesthesia/Blood Transfusion Reactions: No Reported Reaction Past Psychological History: No Psychological Hx Reported Smoking Status: Never smoker Past Alcohol Use History: None Reported Past Drug Use History: None Reported - Past Family History Mother Family Medical History: Cancer Additional Family Medical History / Comment(s): brain ca Father Family Medical History: Cancer Additional Family Medical History / Comment(s): prostate cancer Medications and Allergies Home Medications Medication Instructions Recorded Confirmed Type Aspirin EC [Ecotrin Low Dose] 81 mg PO DAILY 07/24/16 11/05/20 History Pravastatin Sodium [Pravachol] 20 mg PO HS 07/24/16 11/05/20 History lisinopriL [Zestril] 20 mg PO DAILY 07/24/16 11/05/20 History Fluticasone Nasal [place] [Flonase 1 spr EA NOSTRIL DAILY 02/06/18 11/05/20 History Nasal [place]] Calcium Carbonate [Calcium] 1,200 mg PO BID 11/05/20 11/05/20 History Cholecalciferol [Vitamin D3 (25 50 mcg PO DAILY 11/05/20 11/05/20 History Mcg = 1000 Iu)] Dulaglutide [Trulicity] 1.5 mg SQ TH 11/05/20 11/05/20 History Empagliflozin [Jardiance] 25 mg PO DAILY 11/05/20 11/05/20 History Ipratropium-Albuterol Nebulize 3 ml INHALATION RT-QID PRN 11/05/20 11/05/20 History [Duoneb 0.5 mg-3 mg/3 ml Soln] Metoprolol Succinate (ER) [Toprol 100 mg PO DAILY 11/05/20 11/05/20 History Xl] Pantoprazole Sodium 40 mg PO DAILY 11/05/20 11/05/20 History Pioglitazone [Actos] 15 mg PO DAILY 11/05/20 11/05/20 History Psyllium Husk (with Sugar) 5 ml PO DAILY 11/05/20 11/05/20 History [Metamucil Powder] amLODIPine [Norvasc] 5 mg PO DAILY 11/05/20 11/05/20 History metFORMIN HCL [Glucophage] 1,000 mg PO BID 11/05/20 11/05/20 History Allergies Allergy/AdvReac Type Severity Reaction Status Date / Time Penicillins Allergy Rash/Hives Verified 11/05/20 08:55 Sulfa (Sulfonamide Allergy Rash/Hives Verified 11/05/20 08:55 Antibiotics) Physical Exam Vitals: Vital Signs Temp Pulse Resp BP Pulse Ox 11/05/20 14:42 86 18 163/95 99 11/05/20 07:49 98.1 F 61 18 143/47 98 Intake and Output 11/05/20 11/05/20 11/05/20 06:59 14:59 22:59 Other: Weight 106.141 kg PHYSICAL EXAMINATION: GENERAL: The patient is alert and oriented x3, not in any acute distress. Well developed, well nourished. HEENT: Pupils are round and equally reacting to light. EOMI. No scleral icterus. No conjunctival pallor. Normocephalic, atraumatic. No pharyngeal erythema. No thyromegaly. CARDIOVASCULAR: S1 and S2 present. No murmurs, rubs, or gallops. PULMONARY: Chest is clear to auscultation, no wheezing or crackles. ABDOMEN: Soft, nontender, nondistended, normoactive bowel sounds. No palpable organomegaly. MUSCULOSKELETAL: his bandage as mentioned above to the right leg EXTREMITIES: No cyanosis, clubbing, or pedal edema. NEUROLOGICAL: Gross neurological examination did not reveal any focal deficits. SKIN: No rashes. Results CBC & Chem 7: 11/05/20 09:56 11/05/20 13:48 Labs: Abnormal Lab Results - Last 24 Hours (Table) 11/05/20 11/05/20 Range/Units 09:56 13:48 RBC 6.28 H (3.80-5.40) m/uL Hct 46.2 H (34.0-46.0) % MCV 73.6 L (80.0-100.0) fL MCH 22.4 L (25.0-35.0) pg MCHC 30.4 L (31.0-37.0) g/dL Glucose 204 H (74-99) mg/dL AST 69 H (14-36) U/L ALT 55 H (4-34) U/L Assessment and Plan Plan: preoperative clearance: Patient is low operative risk for orthopedic surgery. Patient is presently on opiates as well as nonsteroidal anti-inflammatories for pain her pain is being appropriately managed at this time. -hypertension Patient will be resumed on ANDRIY inhibitor hold off on the amlodipine to avoid perioperative hypotension if she is going for surgery later today or tomorrow morning - gastric esophageal reflux disease -Type 2 diabetes mellitus patient was started on sliding scale insulin hold off some of the oral hypoglycemic agents -hyperlipidemia. -Distal left fibular, tibia fracture.
[2020-11-05] MEDS: HYDROcodone/APAP 5-325MG 1 EACH TAB PO PRN (18:12)
[2020-11-05] MEDS: CALCIUM CARBONATE 500 MG CHEWABLE PO SCH (21:15)
[2020-11-05] MEDS: PRAVASTATIN SODIUM 20 MG TAB PO SCH (21:17)
[2020-11-05] MEDS ORDERED: PETROLATUM, WHITE OINT 50 GM TUBE TOPICAL PRN (21:22)
[2020-11-06 01:10] LABS: Glucose,Whole Blood 165 mg/dL (75-99)
[2020-11-06] MEDS ORDERED: INSULIN ASPART (NovoLOG) 100 UNIT/ML VIAL SQ ONE (01:10)
[2020-11-06] MEDS: MORPHINE SULFATE 4 MG/ML SYRINGE IV PRN ×2 (01:34→16:58)
[2020-11-06 05:09] LABS: Appearance,Urine Clear (Clear); Bacteria,Urine Rare /hpf; Bilirubin,Urine Negative (Negative); Blood,Urine Negative (Negative); Color,Urine Yellow; Glucose,Urine (UA) 4+ (Negative); Ketones,Urine Negative (Negative); Leukocyte Esterase,Urine Small (Negative); Mucus,Urine Rare /hpf; Nitrite,Urine Negative (Negative); Protein,Urine Negative (Negative); RBC,Urine 2 /hpf (0-5); Specific Gravity,Urine 1.033 (1.001-1.035); Squamous Epithelial Cell,Urine 2 /hpf (0-4); Urobilinogen,Urine <2.0 mg/dL (<2.0); WBC,Urine 10 /hpf (0-5)
[2020-11-06] MEDS: HYDROcodone/APAP 5-325MG 1 EACH TAB PO PRN ×3 (06:15→21:09)
[2020-11-06 07:03] LABS: Glucose,Whole Blood 180 mg/dL (75-99)
[2020-11-06] MEDS: CHOLECALCIFEROL 25 MCG (1000 IU) TABLET PO SCH (07:29)
[2020-11-06] MEDS: INSULIN ASPART (NovoLOG) 100 UNIT/ML VIAL SQ SCH ×4 (07:29→21:18)
[2020-11-06] MEDS: CALCIUM CARBONATE 500 MG CHEWABLE PO SCH ×2 (07:30→21:08)
[2020-11-06] MEDS: METOPROLOL SUCCINATE (ER) 100 MG TAB.ER.24H PO SCH (07:30)
[2020-11-06] MEDS: PANTOPRAZOLE 40 MG TABLET PO SCH (07:30)
[2020-11-06] MEDS: lisinopriL 20 MG TAB PO SCH (07:30)
[2020-11-06] MEDS: ASPIRIN 81 MG PO SCH (07:31)
[2020-11-06] MEDS: KETOROLAC 15 MG/ML 1 ML VIAL IVP PRN ×3 (07:31→21:55)
[2020-11-06] MEDS: FLUTICASONE 50MCG/SPRAY NASAL 16GM EA NOSTRIL SCH (07:32)
[2020-11-06 11:48] LABS: Glucose,Whole Blood 231 mg/dL (75-99)
--- NOTE | 2020-11-06 12:01 | P.PN ---
Progress Note - Text Progress Note Date: 11/06/20 Orthopedics: History of present illness: Patient is a very pleasant 75-year-old female who is seen at the bedside for follow-up evaluation of her left ankle. He has been transferred from the emergency department to . 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 She states she tried to position herself better and fell backwards. Her left leg stuck and she fell backwards. She's had significant pain in her left lower extremity and ankle since that time. She was unable to weight-bear the left lower extremity. She was brought to [facility] for further evaluation. She was found to have evidence of displaced fracture of the left distal fibula and medial malleolus with distortion of the ankle mortise and subluxation of the tibia relative to the talus. She was placed in a splint. She is nonweightbearing on the left lower extremity. She has been admitted to our service. She does state at the bedside her pain has been adequately controlled. She continues to elevate and apply ice over her splint at the left lower extremity for comfort support as needed. She has been seen by medicine who has cleared the patient for surgical intervention. She is currently scheduled for an ORIF for left bimalleolar ankle fracture scheduled for tomorrow, 11/07/2020. She does continue to have pain in her left ankle. She has been receiving morphine and ibuprofen for pain control. Patient to comorbidities including diabetes mellitus, hyperlipidemia, hypertension, and osteoarthritis. Physical Exam: Patient is awake, alert, and oriented 3 Vital signs stable Good chest excursion with deep inspiration and expiration Bulky splint is intact over the left lower extremity Neurovascularly intact left lower extremity Patient does have difficulty with active range of motion of the toes of the left foot Dressing over the left lower extremity is clean and dry Pertinent studies: X-rays of the left tibia, fibula, and ankle taken on 11/05/2020: Displaced fracture of the left distal fibula and medial malleolus with distortion of ankle mortise and subluxation of the tibia relative to the talus; severe osteoarthritis of left medial compartment of the knee Assessment: Left bimalleolar ankle fracture with ankle mortise disruption and subluxation of the tibia relative to the talus Left ankle pain Inability to ambulate due to ankle fracture Status post fall Osteoarthritis of the left knee Diabetes mellitus Hyperlipidemia Hypertension Obesity Plan: 1. We will continue with our plan as set forth yesterday. Patient has been discussed in detail Dr. Giuseppe Lacey. Imaging has been reviewed by Dr. Giuseppe Lacey and myself. Patient sustained a fall , 11/05/2020, resulting in a left bimalleolar ankle fracture with ankle mortise disruption and subluxation of the tibia relative to the talus. She's been unable to ambulate due to her pain and instability of the left ankle since that time. She was placed in a splint for the left lower extremity. She is currently keeping the splint elevated. We discussed she should continue to keep the splint elevated and may apply ice over the splint for comfort support as needed. We discussed the significance of her fracture and without surgical intervention to stabilize her fractures she'll most likely be unable to ambulate on her left lower extremity. We did discuss surgical intervention to stabilize her fractures provides the best opportunity for her to be able to increase her mobility, provide better pain control, and allow her to ambulate on the left lower extremity. Patient states at this time she would like to proceed forward with surgical intervention. The patient has been seen by medicine who has cleared the patient for surgical intervention. Surgical intervention is scheduled for , 11/07/2020. We discussed the proposed surgical intervention is an ORIF of the left ankle for left bimalleolar ankle fracture to be performed by Dr. Giuseppe Lacey. Patient feels this is a good plan of care would like to proceed forward with scheduling surgical intervention. She is strict nonweightbearing on the left lower extremity. 2. Patient may continue pain control with morphine and [place] 5 mg/325 mg as prescribed as needed for control of her symptoms. 3. Patient may continue to eat a regular diet today. We did discuss she'll become nothing by mouth starting at midnight on 11/07/2020 in anticipation for surgical intervention 4. Patient continue be seen and examined by medicine. Medicine states they have cleared the patient for surgical intervention.
--- NOTE | 2020-11-06 14:31 | P.PN ---
Subjective 75-year-old pleasant female was admitted forclosed fracture of distal end of fibula and tibia and patient presently has an Andriy bandage to that location. Patient had a fall while walking her dog which was a mechanical fall. Patient denied any syncopal episode. Patient denied any history of congestive heart failure denied any coronary artery disease history but does have history of diabetes mellitus and hypertension. Patient had an EKG which showed normal sinus rhythm mild sinus bradycardia patient is in metoprolol. Patient is on multiple medications for hypertension as well as type 2 diabetes mellitus. Patient denied any fever chills patient is a fairly functional woman. 11/06/2020 and patient patient's pain is better controlled. Patient will undergo surgical intervention tomorrow. Constitutional: Denied any fatigue denied any fever. Cardio vascular: denied any chest pain, palpitations Gastrointestinal denied any nausea vomiting Pulmonary: Denied any shortness of breath cough Neurologic denied any new focal deficits All inpatient medications were reviewed and appropriate changes in these medications as dictated in the interval history and assessment and plan. Objective - Vital Signs Vital signs: Vital Signs Temp 97.5 F L 11/06/20 08:00 Pulse 83 11/06/20 08:00 Resp 19 11/06/20 08:00 BP 147/63 11/06/20 08:00 Pulse Ox 99 11/06/20 08:00 Intake & Output 11/05/20 11/06/20 11/06/20 18:59 06:59 18:59 Weight 106.141 kg 92 kg Other: Voiding Method Bedpan # Voids 1 - Exam PHYSICAL EXAMINATION: GENERAL: The patient is alert and oriented x3, not in any acute distress. Well developed, well nourished. HEENT: Pupils are round and equally reacting to light. EOMI. No scleral icterus. No conjunctival pallor. Normocephalic, atraumatic. No pharyngeal erythema. No thyromegaly. CARDIOVASCULAR: S1 and S2 present. No murmurs, rubs, or gallops. PULMONARY: Chest is clear to auscultation, no wheezing or crackles. ABDOMEN: Soft, nontender, nondistended, normoactive bowel sounds. No palpable organomegaly. MUSCULOSKELETAL: his bandage as mentioned above to the right leg EXTREMITIES: No cyanosis, clubbing, or pedal edema. NEUROLOGICAL: Gross neurological examination did not reveal any focal deficits. SKIN: No rashes. - Labs CBC & Chem 7: 11/05/20 09:56 11/05/20 13:48 Labs: Abnormal Lab Results - Last 24 Hours (Table) 11/06/20 11/06/20 11/06/20 Range/Units 01:07 03:35 07:02 POC Glucose (mg/dL) 165 H 180 H (75-99) mg/dL Urine Glucose (UA) 4+ H (Negative) Ur Leukocyte Esterase Small H (Negative) Urine WBC 10 H (0-5) /hpf Urine Bacteria Rare H (None) /hpf Urine Mucus Rare H (None) /hpf 11/06/20 Range/Units 11:46 POC Glucose (mg/dL) 231 H (75-99) mg/dL Urine Glucose (UA) (Negative) Ur Leukocyte Esterase (Negative) Urine WBC (0-5) /hpf Urine Bacteria (None) /hpf Urine Mucus (None) /hpf Assessment and Plan Plan: preoperative clearance: Patient is low operative risk for orthopedic surgery. Patient is presently on opiates as well as nonsteroidal anti-inflammatories for pain her pain is being appropriately managed at this time. -hypertension Patient will be resumed on ANDRIY inhibitor hold off on the amlodipine to avoid perioperative hypotension if she is going for surgery later today or tomorrow morning - gastric esophageal reflux disease -Type 2 diabetes mellitus patient was started on sliding scale insulin hold off some of the oral hypoglycemic agents -hyperlipidemia. -Distal left fibular, tibia fracture. -His Synthroid bacteria will not require any antibiotics
[2020-11-06 16:33] LABS: Glucose,Whole Blood 165 mg/dL (75-99)
[2020-11-06] MEDS: PRAVASTATIN SODIUM 20 MG TAB PO SCH (21:08)
[2020-11-06 21:11] LABS: Glucose,Whole Blood 195 mg/dL (75-99)
[2020-11-07] MEDS: KETOROLAC 15 MG/ML 1 ML VIAL IVP PRN (05:52)
[2020-11-07] MEDS ORDERED: HYDROmorphone 0.5 MG/0.5 ML SYRINGE IVP PRN (06:17)
[2020-11-07] MEDS ORDERED: DEXAMETHASONE SOD PHOSPHATE 4 MG/ML 1 ML VIAL IV ONE (06:17)
[2020-11-07] MEDS ORDERED: LACTATED RINGERS 1,000 ML IV SCH (06:17)
[2020-11-07] MEDS ORDERED: LIDOCAINE 1% (10MG/ML) FOR IV START INTRADERMA PRN (06:17)
[2020-11-07] MEDS ORDERED: ONDANSETRON 4 MG/2 ML VIAL IVP ONE (06:17)
[2020-11-07 06:38] LABS: Glucose,Whole Blood 171 mg/dL (75-99)
[2020-11-07] MEDS ORDERED: fentaNYL (PF) 50 MCG/ML 2 ML AMP IV ONE ×2 (06:49→07:20)
[2020-11-07] MEDS ORDERED: MIDAZOLAM 2 MG/2 ML VIAL IV ONE ×2 (06:49→07:20)
[2020-11-07] MEDS ORDERED: METOPROLOL TARTRATE 5 MG/5 ML VIAL IVP ONE (07:58)
[2020-11-07] MEDS ORDERED: SODIUM CHLORIDE 0.9% (PF) 10 ML VIAL ONE (07:58)
[2020-11-07] MEDS ORDERED: fentaNYL (PF) 50 MCG/ML 2 ML AMP ONE (07:58)
[2020-11-07] MEDS ORDERED: LIDOCAINE 1% INJ 10MG/ML (20 ML MDV) ONE (07:58)
[2020-11-07] MEDS ORDERED: SUCCINYLCHOLINE CHLORIDE 100 MG/5 ML SYR IV ONE (07:58)
[2020-11-07] MEDS ORDERED: PROPOFOL 10 MG/ML 20 ML VIAL IV ONE (07:58)
[2020-11-07] MEDS ORDERED: ROPIVACAINE 5 MG/ML 30 ML VIAL ONE (07:58)
[2020-11-07] MEDS: INSULIN ASPART (NovoLOG) 100 UNIT/ML VIAL SQ SCH ×4 (08:39→23:40)
[2020-11-07] MEDS ORDERED: NON FORMULARY DRUG (Dulaglutide [Trulicity] 1.5 MG/0.5 ML Pen.Injctr) SQ SCH (09:00)
[2020-11-07] MEDS ORDERED: ceFAZolin 1,000 MG in SODIUM CHLORIDE 0.9% 1,000 ML IRRIGATION ONE (09:05)
[2020-11-07] MEDS ORDERED: LACTATED RINGERS 1,000 ML IV ONE ×2 (09:23)
--- NOTE | 2020-11-07 09:37 | P.ANPRN ---
Procedure Note - Anesthesia - Nerve Block Performed Left Popliteal Single Time Out Performed: Yes (648) Date of Procedure: 11/07/20 Procedure Start Time: 06:49 Procedure Stop Time: 06:52 Location of Patient: PreOp Indication: Acute Post-Operative Pain, Requested by Surgeon Specifically requested for management of pain by DrJeremiah: Giuseppe Lacey Sedation Type: Sedate with meaningful contact maintained Preparation: Sterile Prep Position: Supine Catheter: None Needle Types: Pajunk Needle Gauge: 21 Ultrasound used to visualize needle placement: Yes Ultrasound used to observe medication spread: Yes Injectate: 0.5% Ropivacaine (see comment for volume) (15cc + 15cc NACL) Blood Aspirated: No Pain Paresthesia on Injection Noted: No Resistance on Injection: Normal Image Stored and Saved: Yes Events: Uneventful and Well Tolerated
--- NOTE | 2020-11-07 09:38 | P.ANPRN ---
Procedure Note - Anesthesia - Nerve Block Performed Left Adductor Canal Single Time Out Performed: Yes (653) Date of Procedure: 11/07/20 Procedure Start Time: 06:54 Procedure Stop Time: 06:58 Location of Patient: PreOp Indication: Acute Post-Operative Pain, Requested by Surgeon Specifically requested for management of pain by DrJeremiah: Giuseppe Lacey Sedation Type: Sedate with meaningful contact maintained Preparation: Sterile Prep Position: Supine Catheter: None Needle Types: Pajunk Needle Gauge: 21 Ultrasound used to visualize needle placement: Yes Ultrasound used to observe medication spread: Yes Injectate: 0.5% Ropivacaine (see comment for volume) (15cc + 15cc NACL) Blood Aspirated: No Pain Paresthesia on Injection Noted: No Resistance on Injection: Normal Image Stored and Saved: Yes Events: Uneventful and Well Tolerated
--- NOTE | 2020-11-07 09:56 | XR ---
EXAMINATION TYPE: XR ankle limited LT DATE OF EXAM: 11/07/2020 COMPARISON: NONE HISTORY: Postop TECHNIQUE: 2 view submitted FINDINGS: Postsurgical change appears in near-anatomic alignment. Chronic appearing deformity of the medial malleolus. IMPRESSION: Postop
--- NOTE | 2020-11-07 09:57 | FL ---
EXAMINATION TYPE: FL guidance operating room DATE OF EXAM: 11/07/2020 HISTORY: Fluoroscopy time 1 minute and 12 seconds of fluoroscopy provided. IMPRESSION: 1. Fluoroscopy time.
[2020-11-07] MEDS: lisinopriL 20 MG TAB PO SCH (11:20)
[2020-11-07] MEDS: CALCIUM CARBONATE 500 MG CHEWABLE PO SCH ×2 (11:20→20:21)
[2020-11-07] MEDS: PANTOPRAZOLE 40 MG TABLET PO SCH (11:20)
[2020-11-07] MEDS: CHOLECALCIFEROL 25 MCG (1000 IU) TABLET PO SCH (11:20)
[2020-11-07] MEDS: FLUTICASONE 50MCG/SPRAY NASAL 16GM EA NOSTRIL SCH (11:20)
[2020-11-07] MEDS: METOPROLOL SUCCINATE (ER) 100 MG TAB.ER.24H PO SCH (11:20)
[2020-11-07] MEDS: ASPIRIN 81 MG PO SCH (11:20)
[2020-11-07] MEDS: LACTATED RINGERS 1,000 ML IV SCH ×2 (11:23→19:57)
[2020-11-07 11:25] LABS: Glucose,Whole Blood 243 mg/dL (75-99)
--- NOTE | 2020-11-07 11:38 | P.PN ---
Subjective 75-year-old pleasant female was admitted forclosed fracture of distal end of fibula and tibia and patient presently has an Andriy bandage to that location. Patient had a fall while walking her dog which was a mechanical fall. Patient denied any syncopal episode. Patient denied any history of congestive heart failure denied any coronary artery disease history but does have history of diabetes mellitus and hypertension. Patient had an EKG which showed normal sinus rhythm mild sinus bradycardia patient is in metoprolol. Patient is on multiple medications for hypertension as well as type 2 diabetes mellitus. Patient denied any fever chills patient is a fairly functional woman. 11/06/2020 and patient patient's pain is better controlled. Patient will undergo surgical intervention tomorrow. 11/07/2020 Patient had an operative intervention today. Patient is still coming out of anesthesia. Patient blood pressures with elevated patient will be restarted back on her amlodipine. Patient is still having significant amount of pain. Constitutional: Denied any fatigue denied any fever. Cardio vascular: denied any chest pain, palpitations Gastrointestinal denied any nausea vomiting Pulmonary: Denied any shortness of breath cough Neurologic denied any new focal deficits All inpatient medications were reviewed and appropriate changes in these medications as dictated in the interval history and assessment and plan. Objective - Vital Signs Vital signs: Vital Signs Temp 98.0 F 11/07/20 10:54 Pulse 90 11/07/20 10:54 Resp 18 11/07/20 10:54 BP 180/90 11/07/20 10:54 Pulse Ox 96 11/07/20 10:54 Intake & Output 11/06/20 11/07/20 11/07/20 18:59 06:59 18:59 Intake Total 1080 1880 1501 Output Total 550 150 Balance 1080 1330 1351 Intake: IV 500 701 Intake, IV Titration 800 Amount Lactated Ringers 1,000 ml 800 @ 100 mls/hr IV .Q10H [facility] Rx#:[id number] Oral 1080 1380 Output: Urine 550 Estimated Blood Loss 150 Other: Voiding Method Bedpan Bedpan # Voids 3 - Exam PHYSICAL EXAMINATION: GENERAL: The patient is alert and oriented x3, not in any acute distress. Well developed, well nourished. HEENT: Pupils are round and equally reacting to light. EOMI. No scleral icterus. No conjunctival pallor. Normocephalic, atraumatic. No pharyngeal erythema. No thyromegaly. CARDIOVASCULAR: S1 and S2 present. No murmurs, rubs, or gallops. PULMONARY: Chest is clear to auscultation, no wheezing or crackles. ABDOMEN: Soft, nontender, nondistended, normoactive bowel sounds. No palpable organomegaly. MUSCULOSKELETAL: Patient is postsurgical a packed in the right leg EXTREMITIES: No cyanosis, clubbing, or pedal edema. NEUROLOGICAL: Gross neurological examination did not reveal any focal deficits. SKIN: No rashes. - Labs CBC & Chem 7: 11/05/20 09:56 11/05/20 13:48 Labs: Abnormal Lab Results - Last 24 Hours (Table) 11/06/20 11/06/20 11/06/20 Range/Units 11:46 16:31 21:09 POC Glucose (mg/dL) 231 H 165 H 195 H (75-99) mg/dL 11/07/20 11/07/20 Range/Units 06:26 11:24 POC Glucose (mg/dL) 171 H 243 H (75-99) mg/dL Assessment and Plan Plan: preoperative clearance: Patient is low operative risk for orthopedic surgery. He is status post intramedullary nailing. Postoperative day 0 -hypertension resumed on amlodipine continue with the losartan. - gastric esophageal reflux disease -Type 2 diabetes mellitus patient was started on sliding scale insulin hold off some of the oral hypoglycemic agents -hyperlipidemia. -Distal left fibular, tibia fracture. -His Synthroid bacteria will not require any antibiotics
[2020-11-07] MEDS: amLODIPine 5 MG TAB PO SCH (11:56)
[2020-11-07 12:23] LABS: Basophils # (A) 0.1 k/uL (0-0.2); Basophils % (A) 1 %; Eosinophils # (A) 0.1 k/uL (0-0.7); Eosinophils % (A) 1 %; HCT 40.9 % (34.0-46.0); HGB 12.8 gm/dL (11.4-16.0); Hypochromasia Moderate; Lymphocytes % (A) 11 %; MCH 23.2 pg (25.0-35.0); MCHC 31.3 g/dL (31.0-37.0); Mean Platelet Volume 8.1; Microcytosis Slight; Monocytes # (A) 0.3 k/uL (0-1.0); Monocytes % (A) 3 %; Neutrophils # (A) 7.6 k/uL (1.3-7.7); Neutrophils % (A) 84 %; Platelet Count 168 k/uL (150-450); RBC 5.53 m/uL (3.80-5.40); RDW 15.2 % (11.5-15.5)
[2020-11-07] MEDS: IPRATROPIUM-ALBUTEROL 3 ML NEB INHALATION PRN (16:25)
[2020-11-07 16:54] LABS: Glucose,Whole Blood 239 mg/dL (75-99)
[2020-11-07] MEDS: PRAVASTATIN SODIUM 20 MG TAB PO SCH (20:21)
[2020-11-07] MEDS: HYDROcodone/APAP 5-325MG 1 EACH TAB PO PRN (20:22)
[2020-11-07 20:30] LABS: Glucose,Whole Blood 214 mg/dL (75-99)
--- NOTE | 2020-11-07 21:41 | OP ---
OPERATIVE REPORT DATE OF PROCEDURE: 11/07/2020. SURGEON: Giuseppe Lacey MD [employer] ATTENDANT: DOROTHY Joseph. PREOPERATIVE DIAGNOSIS: Left bimalleolar ankle fracture. POSTOPERATIVE DIAGNOSIS: Left bimalleolar ankle fracture. PROCEDURE PERFORMED: Open reduction, internal fixation, left bimalleolar ankle fracture. ANESTHESIA: General endotracheal. ESTIMATED BLOOD LOSS: 150 cc. TOURNIQUET: Tourniquet time was 61 minutes at 250 mmHg. DRAINS: None. COMPLICATIONS: None apparent. DISPOSITION: Postanesthesia care unit. INDICATIONS: Valentina is a very pleasant 75-year-old female who fell backwards off a couple of stairs at her home. She had instant pain in the left ankle. She was brought to [facility] via ambulance. Workup including x-rays revealed a displaced bimalleolar ankle fracture. She was admitted to my service. She is an independent ambulator at home. Recommendation was for open reduction and internal fixation of her displaced bimalleolar ankle fracture. The risks of procedure were discussed with her in detail. These risks included, but were not limited to risk of infection, nerve damage, bleeding, pain, and a small risk of deep vein thrombosis which could lead to fatal pulmonary embolism. Further risks include failure of the fracture to heal, failure to fixation and deep infection. All of her questions with regard to the risks of procedure were answered to her satisfaction. Appropriate informed consent was obtained. DESCRIPTION OF PROCEDURE: The patient identified in the preoperative holding area. Surgical sites marked by both the patient and myself. She was given 2 grams of Ancef IV for prophylactic purposes. She was then transported to the operative suite. She was placed supine on the operative table. General anesthetic was then administered and dosed per the anesthesia without apparent complication. Tourniquet was then placed high on the left upper thigh well-padded in preparation for surgery. A bump was then placed under her left hip as well to gain easier access to the lateral malleolus. The patient's left lower extremity was then prepped and draped in usual sterile fashion. Standard surgical pause undertaken to ensure that we were operating the correct site and that appropriate preoperative antibiotics were given. All staff were in agreement and we proceeded. The outlines of the distal fibula were marked with a surgical pen. A planned 10-15 cm incision starting at the distal tip of the fibula extending proximally over the posterior 1/3 of the fibular shaft was then made with surgical pen. The leg was then exsanguinated with an Esmarch dressing. The tourniquet was inflated to 250 mmHg. The incision was then made with a 15 blade scalpel. Dissection was then carried down sharply to the lateral border of the fibula. Great care was taken proximally to bluntly dissect as to avoid any injury to the superficial peroneal nerve. The fracture was readily identified. It was fairly comminuted, oblique Parker B type fracture. Her bone quality was very poor, very soft bone. The fracture was then provisionally reduced and held with a K-wire. Fluoroscopy was brought in. The ankle mortise was then anatomically aligned and the fibula was backed out the length. I then proceeded with fixation. I utilized an Arthrex titanium pre contoured lateral malleolar plate. This had area for 4-5 locking screws distally. I utilized this plate due to her poor bone quality. The fracture was then fixed. We placed three 3.5 mm bicortical screws proximal to the fracture and she had five 3.0 mm locking screws placed in the distal aspect of the plate. The fracture had been reduced anatomically. Again the plate and screws were placed under fluoroscopic imaging to ensure that the screws were appropriate length. I then turned my attention to the medial malleolus. She had a very small medial malleolar fragment. I did make an incision over the anterolateral aspect of the medial malleolar piece. Dissection was carried down carefully as to avoid any injury to the saphenous vein and nerve. A small [id number] was then placed on the tip. Again, this was very small. I did attempt to place a pin through it. At this point, after a few times, I made a decision that the fragment was too small to hold a 4.0 mm screw. The ankle mortise was reduced. I made a decision at this point to forego fixation in the medial malleolar piece. At this point and time we proceeded with closure. The wounds were thoroughly irrigated with sterile saline solution with antibiotic added. The deep layers were closed with 0 Vicryl interrupted suture. This brought a deep layer closure over the plate. Subcutaneous tissue closed with 2-0 Vicryl suture and the skin was closed with stainless steel marlon. On the medial side, the subcutaneous tissue closed with 2-0 Vicryl interrupted suture. The skin was closed with stainless steel marlon. Sterile compressive dressing was then applied. The tourniquet was deflated. Total tourniquet time for the procedure was 61 minute at 250 mmHg. A posterior molded short-leg posterior mold splint with side stirrups was then placed. All sponge and needle counts were deemed correct prior to closure. The patient tolerated the procedure without apparent complication. She was transferred to recovery room in stable condition. MMRENETTA / GONZALON: [id number] /
[2020-11-08] MEDS: LACTATED RINGERS 1,000 ML IV SCH (00:37)
[2020-11-08] MEDS: MORPHINE SULFATE 4 MG/ML SYRINGE IV PRN (00:46)
[2020-11-08 07:01] LABS: Glucose,Whole Blood 200 mg/dL (75-99)
[2020-11-08] MEDS: amLODIPine 5 MG TAB PO SCH (07:27)
[2020-11-08] MEDS: ASPIRIN 81 MG PO SCH (07:27)
[2020-11-08] MEDS: PANTOPRAZOLE 40 MG TABLET PO SCH (07:28)
[2020-11-08] MEDS: CALCIUM CARBONATE 500 MG CHEWABLE PO SCH ×2 (07:28→21:22)
[2020-11-08] MEDS: METOPROLOL SUCCINATE (ER) 100 MG TAB.ER.24H PO SCH (07:28)
[2020-11-08] MEDS: lisinopriL 20 MG TAB PO SCH (07:28)
[2020-11-08] MEDS: INSULIN ASPART (NovoLOG) 100 UNIT/ML VIAL SQ SCH ×4 (07:28→21:22)
[2020-11-08] MEDS: CHOLECALCIFEROL 25 MCG (1000 IU) TABLET PO SCH (07:28)
[2020-11-08] MEDS: FLUTICASONE 50MCG/SPRAY NASAL 16GM EA NOSTRIL SCH (07:29)
[2020-11-08] MEDS: IPRATROPIUM-ALBUTEROL 3 ML NEB INHALATION PRN (07:56)
[2020-11-08 10:47] LABS: Acanthocytes 2+; HGB 11.3 g/dL (12.0-15.0); MCH 22.6 pg (27.0-32.0); MCHC 29.7 g/dL (32.0-37.0); MCV 76.2 fL (80.0-97.0); Microcytosis (M) 2+; Platelet Count 76 X 10*3/uL (140-440); RBC 4.99 X 10*6/uL (4.10-5.20); RDW 15.9 % (11.5-14.5); WBC 9.04 X 10*3/uL (4.50-10.00)
[2020-11-08] MEDS: HYDROcodone/APAP 5-325MG 1 EACH TAB PO PRN ×3 (11:14→21:24)
[2020-11-08 11:35] LABS: African American GFR (CKD) 98.9 (60.0-200.0); Anion Gap 10.7 mmol/L (4.00-12.00); BUN/Creat Ratio 18.57 Ratio (12.00-20.00); Calcium 8.4 mg/dL (8.7-10.3); Carbon Dioxide 24.3 mmol/L (21.6-31.8); Non-African American GFR(CKD) 85.4 (60.0-200.0); Potassium 5.2 mmol/L (3.5-5.5)
[2020-11-08 11:50] LABS: Glucose,Whole Blood 227 mg/dL (75-99)
--- NOTE | 2020-11-08 11:55 | P.PN ---
Subjective Progress Note Date: 11/08/20 This patient is a 75- year old female that is status-post left ankle open reduction and internal fixation on 11/07/20. Today is post-operative day #1. Patient is seen and examined bedside this morning. She states her ankle is throbbing, although her pain is well-controlled at this time. She is tolerating her diet well. Patient has been up to the bedside chair today with physical therapy. Patient denies chest pain, shortness of breath, nausea, vomiting, fevers, chills. Vital signs stable. Objective - Vital Signs Vital signs: Vital Signs Temp 98.5 F 11/08/20 07:51 Pulse 78 11/08/20 08:04 Resp 16 11/08/20 07:51 BP 161/65 11/08/20 07:51 Pulse Ox 100 11/08/20 07:51 Intake & Output 11/07/20 11/08/20 11/08/20 18:59 06:59 18:59 Intake Total 1501 1550 50 Output Total 1950 Balance -449 1550 50 Intake: IV 701 Intake, IV Titration 800 1250 50 Amount Lactated Ringers 1,000 ml 800 1200 @ 100 mls/hr IV .Q10H [facility] Rx#:[id number] ceFAZolin 2 gm In Sodium 50 50 Chloride 0.9% 50 ml @ 100 mls/hr IVPB Q8HR [facility] Rx# :[id number] Oral 300 Output: Urine 1800 Estimated Blood Loss 150 Other: Voiding Method Bedpan # Voids 4 # Bowel Movements 1 2 - Exam On examination, patient is sitting up in the bedside chair. She is alert and orientated x3. On inspection of the left ankle, there is a clean, dry, intact splint. The visible portion of the toes are warm and well perfused. Patient is able to wiggle toes appropriately. No pain with PROM of the toes. Sensation is intact to light touch of the toes. - Labs CBC & Chem 7: 11/08/20 05:17 11/08/20 05:17 Labs: Abnormal Lab Results - Last 24 Hours (Table) 11/07/20 11/07/20 11/07/20 Range/Units 12:30 16:53 20:28 RBC 5.53 H (3.80-5.40) m/uL Hgb (12.0-15.0) g/dL MCV 74.0 L (80.0-100.0) fL MCH 23.2 L (25.0-35.0) pg MCHC (32.0-37.0) g/dL RDW (11.5-14.5) % Plt Count (140-440) X 10*3/uL Plt Count Comment Glucose (70-110) mg/dL POC Glucose (mg/dL) 239 H 214 H (75-99) mg/dL Calcium (8.7-10.3) mg/dL 11/08/20 11/08/20 11/08/20 Range/Units 05:17 05:17 06:59 RBC (3.80-5.40) m/uL Hgb 11.3 L (12.0-15.0) g/dL MCV 76.2 L (80.0-100.0) fL MCH 22.6 L (25.0-35.0) pg MCHC 29.7 L (32.0-37.0) g/dL RDW 15.9 H (11.5-14.5) % Plt Count 76 L (140-440) X 10*3/uL Plt Count Comment DECREASED A Glucose 174 H (70-110) mg/dL POC Glucose (mg/dL) 200 H (75-99) mg/dL Calcium 8.4 L (8.7-10.3) mg/dL Assessment and Plan Assessment: Status-post left ankle open reduction and internal fixation on 11/07/20. Post- operative day #1. Plan: - Strict non-weight bearing operative leg. Keep splint clean, dry, intact. - Physical therapy for gait and balance training. - Pain management as needed. - Continue 24 hours of post-operative antibiotics. - Aspirin 81mg for DVT prophylaxis. - Medical management per internal medicine. - Anticipate discharge to [facility] tomorrow, pending medical clearance.
[2020-11-08] MEDS: bisacodyL 5 MG TABLET.DR PO PRN (12:23)
--- NOTE | 2020-11-08 14:41 | P.PN ---
Subjective Progress Note Date: 11/08/20 75-year-old pleasant female was admitted for closed fracture of distal end of fibula and tibia and patient presently has an Andriy bandage to that location. Patient had a fall while walking her dog which was a mechanical fall. Patient denied any syncopal episode. Patient denied any history of congestive heart failure denied any coronary artery disease history but does have history of diabetes mellitus and hypertension. Patient had an EKG which showed normal sinus rhythm mild sinus bradycardia patient is in metoprolol. Patient is on multiple medications for hypertension as well as type 2 diabetes mellitus. Patient denied any fever chills patient is a fairly functional woman. 11/06/2020 and patient patient's pain is better controlled. Patient will undergo surgical intervention tomorrow. 11/07/2020 Patient had an operative intervention today. Patient is still coming out of anesthesia. Patient blood pressures with elevated patient will be restarted back on her amlodipine. Patient is still having significant amount of pain. 11/08/2020 Patient is seen and evaluated and follow-up currently sitting up in the chair with lower extremities elevated and denies any acute overnight issues. Patient is status post left ankle open reduction along with internal fixation and being closely monitored by orthopedic surgery. Cast and Andriy wrap's noted to left lower extremity with positive pulses of the foot and able to move all toes. Patient currently denies any chest pain or shortness of breath. Patient states she does have a cough which is chronic and helps with the breathing treatments. Will order incentive spirometer as well. Patient to use it at least 10 times every hour while awake. Patient is tolerating diet with no reports of nausea or vomiting noted. Plans are for patient to go to [facility] once stabilized and discharged. Will continue to follow along with orthopedics during hospitalization. Constitutional: Denied any fatigue denied any fever. Cardio vascular: denied any chest pain, palpitations Gastrointestinal denied any nausea vomiting Pulmonary: Denied any shortness of breath, reports occasional cough that is chronic Neurologic denied any new focal deficits Objective - Vital Signs Vital signs: Vital Signs Temp 97.7 F 11/08/20 14:06 Pulse 76 11/08/20 14:06 Resp 18 11/08/20 14:06 BP 135/61 11/08/20 14:06 Pulse Ox 97 11/08/20 14:06 Intake & Output 11/07/20 11/08/20 11/08/20 18:59 06:59 18:59 Intake Total 1501 1550 50 Output Total 1950 Balance -449 1550 50 Intake: IV 701 Intake, IV Titration 800 1250 50 Amount Lactated Ringers 1,000 ml 800 1200 @ 100 mls/hr IV .Q10H [facility] Rx#:[id number] ceFAZolin 2 gm In Sodium 50 50 Chloride 0.9% 50 ml @ 100 mls/hr IVPB Q8HR [facility] Rx# :[id number] Oral 300 Output: Urine 1800 Estimated Blood Loss 150 Other: Voiding Method Bedpan # Voids 4 # Bowel Movements 1 2 - Exam GENERAL: The patient is alert and oriented x3, not in any acute distress. Well developed, well nourished. HEENT: Pupils are round and equally reacting to light. EOMI. No scleral icterus. No conjunctival pallor. Normocephalic, atraumatic. No pharyngeal erythema. No thyromegaly. CARDIOVASCULAR: S1 and S2 present. No murmurs, rubs, or gallops. PULMONARY: Chest is clear to auscultation, no wheezing or crackles. ABDOMEN: Soft, nontender, nondistended, normoactive bowel sounds. No palpable or ganomegaly. MUSCULOSKELETAL: Patient has casting and Andriy wraps noted to left lower extremity which is elevated currently with positive pulses and ability to move toes with no sensation of tingling or numbness noted EXTREMITIES: No cyanosis, clubbing, or pedal edema. NEUROLOGICAL: Gross neurological examination did not reveal any focal deficits. SKIN: No rashes. - Labs CBC & Chem 7: 11/08/20 05:17 11/08/20 05:17 Labs: Abnormal Lab Results - Last 24 Hours (Table) 11/07/20 11/07/20 11/08/20 Range/Units 16:53 20:28 05:17 Hgb 11.3 L (12.0-15.0) g/dL MCV 76.2 L (80.0-97.0) fL MCH 22.6 L (27.0-32.0) pg MCHC 29.7 L (32.0-37.0) g/dL RDW 15.9 H (11.5-14.5) % Plt Count 76 L (140-440) X 10*3/uL Plt Count Comment DECREASED A Glucose (70-110) mg/dL POC Glucose (mg/dL) 239 H 214 H (75-99) mg/dL Calcium (8.7-10.3) mg/dL 11/08/20 11/08/20 11/08/20 Range/Units 05:17 06:59 11:49 Hgb (12.0-15.0) g/dL MCV (80.0-97.0) fL MCH (27.0-32.0) pg MCHC (32.0-37.0) g/dL RDW (11.5-14.5) % Plt Count (140-440) X 10*3/uL Plt Count Comment Glucose 174 H (70-110) mg/dL POC Glucose (mg/dL) 200 H 227 H (75-99) mg/dL Calcium 8.4 L (8.7-10.3) mg/dL Assessment and Plan Assessment: -preoperative clearance: Patient is low operative risk for orthopedic surgery. Patient is status post intramedullary nailing. Postoperative day 1 -Status post left ankle open reduction and internal fixation -Mild thrombocytopenia -hypertension resumed on amlodipine continue with the losartan. -Gastroesophageal reflux disease -Type 2 diabetes mellitus, continue sliding scale and will resume oral hypoglycemic agents upon discharge -hyperlipidemia. -Distal left fibular, tibia fracture. -Asymptomatic bacteriuria will not require any antibiotics Plan: Recommended continue with current medications pain management per primary service. PT/OT following and patient will be going to [facility] once discharged. Recommend to continue breathing inhalational treatments and will order incentive spirometer and instructed the patient to continue using at least 10 times every hour while awake. Patient requesting assistance on obtaining a motorized vehicle as she states a wheelchair she is unable to propel in the walker will not help. Case management is aware and was told she has to follow-up with her primary care provider for the paperwork. Patient verbalized understanding. Platelets on the lower side today at 76 and recommend repeat labs in the [facility]. Patient is appropriate for ECF and medically stable and will be discharged by primary service possibly in 24 hours.
[2020-11-08 16:51] LABS: Glucose,Whole Blood 241 mg/dL (75-99)
[2020-11-08 20:35] LABS: Glucose,Whole Blood 249 mg/dL (75-99)
[2020-11-08] MEDS: PRAVASTATIN SODIUM 20 MG TAB PO SCH (21:22)
[2020-11-08] MEDS: hydrOXYzine pamoate 25 MG CAP PO PRN (21:25)
[2020-11-08] MEDS: SENNOSIDES-DOCUSATE SODIUM 1 EACH TAB PO PRN (21:27)
[2020-11-09] MEDS: HYDROcodone/APAP 5-325MG 1 EACH TAB PO PRN ×2 (05:43→14:55)
[2020-11-09] MEDS: hydrOXYzine pamoate 25 MG CAP PO PRN ×2 (05:44→14:55)
[2020-11-09 06:25] LABS: Basophils # (A) 0.1 k/uL (0-0.2); Basophils % (A) 1 %; Eosinophils # (A) 0.5 k/uL (0-0.7); Eosinophils % (A) 9 %; HCT 39.5 % (34.0-46.0); HGB 11.6 gm/dL (11.4-16.0); Hypochromasia Marked; Lymphocytes # (A) 2.3 k/uL (1.0-4.8); Lymphocytes % (A) 42 %; MCH 21.9 pg (25.0-35.0); MCHC 29.3 g/dL (31.0-37.0); MCV 74.9 fL (80.0-100.0); Mean Platelet Volume 7.1; Microcytosis Slight; Monocytes # (A) 0.7 k/uL (0-1.0); Monocytes % (A) 12 %; Neutrophils # (A) 1.9 k/uL (1.3-7.7); Neutrophils % (A) 34 %; Platelet Count 253 k/uL (150-450); RBC 5.27 m/uL (3.80-5.40); RDW 15.7 % (11.5-15.5); WBC 5.6 k/uL (3.8-10.6)
[2020-11-09 06:46] LABS: Glucose,Whole Blood 180 mg/dL (75-99)
[2020-11-09] MEDS: METOPROLOL SUCCINATE (ER) 100 MG TAB.ER.24H PO SCH (07:40)
[2020-11-09] MEDS: CALCIUM CARBONATE 500 MG CHEWABLE PO SCH ×2 (07:41→20:45)
[2020-11-09] MEDS: INSULIN ASPART (NovoLOG) 100 UNIT/ML VIAL SQ SCH ×4 (07:41→20:58)
[2020-11-09] MEDS: ASPIRIN 81 MG PO SCH (07:41)
[2020-11-09] MEDS: amLODIPine 5 MG TAB PO SCH (07:42)
[2020-11-09] MEDS: lisinopriL 20 MG TAB PO SCH (07:42)
[2020-11-09] MEDS: CHOLECALCIFEROL 25 MCG (1000 IU) TABLET PO SCH (07:42)
[2020-11-09] MEDS: PANTOPRAZOLE 40 MG TABLET PO SCH (07:42)
[2020-11-09 09:46] LABS: ALT 26 U/L (8-44); AST 30 U/L (13-35); Albumin/Globulin Ratio 1.48 (1.60-3.17); Alkaline Phosphatase 103 U/L (41-126); Bilirubin, Conjugated <0.20 mg/dL (0.20-0.40); Globulin 2.5 g/dL (1.6-3.3); Total Bilirubin 0.4 mg/dL (0.3-1.2); Total Protein 6.2 g/dL (6.2-8.2)
[2020-11-09 11:22] LABS: Glucose,Whole Blood 248 mg/dL (75-99)
--- NOTE | 2020-11-09 11:55 | P.PN ---
Subjective Progress Note Date: 11/09/20 Principal diagnosis: This patient is a 75- year old female that is status-post left ankle open reduction and internal fixation on 11/07/20. Today is post-operative day #2. Patient is seen and examined bedside this morning. She states her ankle is painful, although her pain is well-controlled at this time. She is tolerating her diet well. Patient has been up to the bedside chair today with physical therapy. Patient denies chest pain, shortness of breath, nausea, vomiting, fever s, chills. Vital signs stable. Objective - Vital Signs Vital signs: Vital Signs Temp 98.3 F 11/09/20 07:23 Pulse 72 11/09/20 07:23 Resp 19 11/09/20 07:23 BP 170/66 11/09/20 07:23 Pulse Ox 98 11/09/20 07:23 Intake & Output 11/08/20 11/09/20 11/09/20 18:59 06:59 18:59 Intake Total 50 Output Total 1800 1800 Balance -1750 -1800 Intake: Intake, IV Titration 50 Amount ceFAZolin 2 gm In Sodium 50 Chloride 0.9% 50 ml @ 100 mls/hr IVPB Q8HR [facility] Rx# :[id number] Output: Urine 1800 1800 Other: Voiding Method Bedpan # Voids 2 # Bowel Movements 2 - Exam This is a pleasant 75-year-old female in no acute distress. She is alert and oriented 3. Exam of her lower extremities reveals that the splint is intact. She has full toe motion without difficulty or pain. Neurovascular status to the lower extremity is intact. - Labs CBC & Chem 7: 11/09/20 06:00 11/08/20 05:17 Labs: Abnormal Lab Results - Last 24 Hours (Table) 11/08/20 11/08/20 11/09/20 Range/Units 16:50 20:34 06:00 MCV 74.9 L (80.0-100.0) fL MCH 21.9 L (25.0-35.0) pg MCHC 29.3 L (31.0-37.0) g/dL RDW 15.7 H (11.5-15.5) % POC Glucose (mg/dL) 241 H 249 H (75-99) mg/dL Conjugated Bilirubin (0.20-0.40) mg/dL Albumin (3.80-4.90) g/dL Albumin/Globulin Ratio (1.60-3.17) g/dL 11/09/20 11/09/20 11/09/20 Range/Units 06:00 06:45 11:21 MCV (80.0-100.0) fL MCH (25.0-35.0) pg MCHC (31.0-37.0) g/dL RDW (11.5-15.5) % POC Glucose (mg/dL) 180 H 248 H (75-99) mg/dL Conjugated Bilirubin <0.20 L (0.20-0.40) mg/dL Albumin 3.70 L (3.80-4.90) g/dL Albumin/Globulin Ratio 1.48 L (1.60-3.17) g/dL Assessment and Plan (1) Closed fracture of distal end of left fibula and tibia Current Visit: Yes Status: Acute Code(s): S82.302A - UNSP FRACTURE OF LOWER END OF LEFT TIBIA, INIT FOR CLOS FX; S82.832A - OTH FRACTURE OF UPPER AND LOWER END OF LEFT FIBULA, INIT SNOMED Code(s): 488497162 (2) Diabetes mellitus Current Visit: Yes Status: Acute Code(s): E11.9 - TYPE 2 DIABETES MELLITUS WITHOUT COMPLICATIONS SNOMED Code(s): 46121366 (3) Inability to ambulate due to ankle or foot Current Visit: Yes Status: Acute Code(s): R26.2 - DIFFICULTY IN WALKING, NOT ELSEWHERE CLASSIFIED SNOMED Code(s): 705300819 (4) Left ankle pain Current Visit: Yes Status: Acute Code(s): M25.572 - PAIN IN LEFT ANKLE AND JOINTS OF LEFT FOOT SNOMED Code(s): 335645257 Plan: The clinical findings are discussed the patient. She is planning discharge to inpatient rehab when cleared medically and when authorization is approved. She may be discharged from an orthopedic standpoint and any time.
[2020-11-09] MEDS: FLUTICASONE 50MCG/SPRAY NASAL 16GM EA NOSTRIL SCH (12:00)
[2020-11-09] MEDS ORDERED: amLODIPine 5 MG TAB PO STA (12:09)
--- NOTE | 2020-11-09 14:28 | P.PN ---
Subjective 75-year-old pleasant female was admitted for closed fracture of distal end of fibula and tibia .Patient had a fall while walking her dog which was a mechanical fall. Patient denied any syncopal episode. Patient denied any history of congestive heart failure She is status post open reduction and internal fixation and 60/17, currently her left ankle is in cast and orthopedic team on the case. This morning patient denies any symptoms other than occasional pain at the fracture site. Patient currently is pain controlled. And she is hemodynamic ally stable. We will also monitoring the patient closely for low platelet counts, and down to 70 6K yesterday however this morning is normal at 253, rest of CBC is unremarkable. Liver enzymes came back to within normal limits. Bilirubin is not elevated. Patient denies any other symptoms. No chest pain or abdominal pain. No dyspnea. Or bowel habits. No fever. Patient is pending her insurance provider authorization other than sanchez patient is medically stable [facility] Patient was instructed to follow up with her PCP in one week after discharge and she agrees. Objective - Vital Signs Vital signs: Vital Signs Temp 97.9 F 11/09/20 14:11 Pulse 83 11/09/20 14:11 Resp 18 11/09/20 14:11 BP 191/72 11/09/20 14:11 Pulse Ox 96 11/09/20 14:11 Intake & Output 11/08/20 11/09/20 11/09/20 18:59 06:59 18:59 Intake Total 50 Output Total 1800 1800 Balance -1750 -1800 Intake: Intake, IV Titration 50 Amount ceFAZolin 2 gm In Sodium 50 Chloride 0.9% 50 ml @ 100 mls/hr IVPB Q8HR [facility] Rx# :[id number] Output: Urine 1800 1800 Other: Voiding Method Bedpan # Voids 2 # Bowel Movements 2 - Exam GENERAL: The patient is alert and oriented x3, not in any acute distress. Well developed, well nourished. HEENT: Pupils are round and equally reacting to light. EOMI. No scleral icterus. No conjunctival pallor. Normocephalic, atraumatic. No pharyngeal erythema. No thyromegaly. CARDIOVASCULAR: S1 and S2 present. No murmurs, rubs, or gallops. PULMONARY: Chest is clear to auscultation, no wheezing or crackles. ABDOMEN: Soft, nontender, nondistended, normoactive bowel sounds. No palpable organomegaly. MUSCULOSKELETAL: No joint swelling or deformity. -EXTREMITIES: No cyanosis, clubbing, or pedal edema. Right ankle open heart cast NEUROLOGICAL: Gross neurological examination did not reveal any focal deficits. SKIN: No rashes. no petechiae. - Labs CBC & Chem 7: 11/09/20 06:00 11/08/20 05:17 Labs: Abnormal Lab Results - Last 24 Hours (Table) 11/08/20 11/08/20 11/09/20 Range/Units 16:50 20:34 06:00 MCV 74.9 L (80.0-100.0) fL MCH 21.9 L (25.0-35.0) pg MCHC 29.3 L (31.0-37.0) g/dL RDW 15.7 H (11.5-15.5) % POC Glucose (mg/dL) 241 H 249 H (75-99) mg/dL Conjugated Bilirubin (0.20-0.40) mg/dL Albumin (3.80-4.90) g/dL Albumin/Globulin Ratio (1.60-3.17) g/dL 11/09/20 11/09/20 11/09/20 Range/Units 06:00 06:45 11:21 MCV (80.0-100.0) fL MCH (25.0-35.0) pg MCHC (31.0-37.0) g/dL RDW (11.5-15.5) % POC Glucose (mg/dL) 180 H 248 H (75-99) mg/dL Conjugated Bilirubin <0.20 L (0.20-0.40) mg/dL Albumin 3.70 L (3.80-4.90) g/dL Albumin/Globulin Ratio 1.48 L (1.60-3.17) g/dL Assessment and Plan Assessment: -Acute left ankle fracture, status post open reduction and internal fixation -Mild thrombocytopenia. Completely resolved -hypertension resumed on amlodipine continue with the losartan. -Gastroesophageal reflux disease -Type 2 diabetes mellitus, continue sliding scale and will resume oral hypoglycemic agents upon discharge -hyperlipidemia. -Distal left fibular, tibia fracture. -Asymptomatic bacteriuria will not require any antibiotics Patient is medically stable to be transferred to [facility]
[2020-11-09 16:30] LABS: Glucose,Whole Blood 211 mg/dL (75-99)
[2020-11-09] MEDS ORDERED: ACETAMINOPHEN TAB 325 MG TAB PO PRN (19:32)
[2020-11-09] MEDS: SENNOSIDES-DOCUSATE SODIUM 1 EACH TAB PO PRN (20:45)
[2020-11-09] MEDS: traMADol 50 MG TAB PO SCH (20:45)
[2020-11-09] MEDS: PRAVASTATIN SODIUM 20 MG TAB PO SCH (20:45)
[2020-11-09 20:51] LABS: Glucose,Whole Blood 258 mg/dL (75-99)
[2020-11-10 07:05] LABS: Glucose,Whole Blood 207 mg/dL (75-99)
[2020-11-10] MEDS: traMADol 50 MG TAB PO SCH ×2 (07:14→20:12)
[2020-11-10] MEDS: INSULIN ASPART (NovoLOG) 100 UNIT/ML VIAL SQ SCH ×4 (07:14→21:00)
[2020-11-10] MEDS: PANTOPRAZOLE 40 MG TABLET PO SCH (07:15)
[2020-11-10] MEDS: CALCIUM CARBONATE 500 MG CHEWABLE PO SCH ×2 (07:15→20:12)
[2020-11-10] MEDS: lisinopriL 20 MG TAB PO SCH ×2 (07:15→20:13)
[2020-11-10] MEDS: ASPIRIN 81 MG PO SCH (07:15)
[2020-11-10] MEDS: amLODIPine 10 MG TAB PO SCH (07:16)
[2020-11-10] MEDS: CHOLECALCIFEROL 25 MCG (1000 IU) TABLET PO SCH (07:16)
[2020-11-10] MEDS: METOPROLOL SUCCINATE (ER) 100 MG TAB.ER.24H PO SCH ×2 (07:16→20:12)
[2020-11-10] MEDS: FLUTICASONE 50MCG/SPRAY NASAL 16GM EA NOSTRIL SCH (07:17)
[2020-11-10 11:34] LABS: Glucose,Whole Blood 230 mg/dL (75-99)
--- NOTE | 2020-11-10 11:46 | P.PN ---
Subjective Progress Note Date: 11/10/20 Principal diagnosis: Postoperative ORIF left ankle. This patient is a 75- year old female that is status-post left ankle open reduction and internal fixation on 11/07/20. Today is post-operative day #3. Patient is seen and examined bedside this morning. She states her ankle is wily nful, although her pain is well-controlled at this time. She is tolerating her diet well. Patient has been up to the bedside chair today with physical therapy. Patient denies chest pain, shortness of breath, nausea, vomiting, fevers, chills. Vital signs stable. Objective - Vital Signs Vital signs: Vital Signs Temp 98.2 F 11/10/20 01:52 Pulse 84 11/10/20 01:52 Resp 18 11/09/20 14:11 BP 175/69 11/10/20 08:44 Pulse Ox 95 11/10/20 01:52 Intake & Output 11/09/20 11/10/20 11/10/20 18:59 06:59 18:59 Output Total 1850 2200 600 Balance -1850 -2200 -600 Output: Urine 1850 2200 600 Other: Voiding Method External Catheter # Voids 4 # Bowel Movements 1 - Exam This is a pleasant 75-year-old female in no acute distress. She is alert and oriented 3. Exam of her lower extremities reveals that the splint is intact. She has full toe motion without difficulty or pain. Neurovascular status to the lower extremity is intact. - Labs CBC & Chem 7: 11/09/20 06:00 11/08/20 05:17 Labs: Abnormal Lab Results - Last 24 Hours (Table) 11/09/20 11/09/20 11/10/20 Range/Units 16:29 20:50 07:03 POC Glucose (mg/dL) 211 H 258 H 207 H (75-99) mg/dL 11/10/20 Range/Units 11:34 POC Glucose (mg/dL) 230 H (75-99) mg/dL Assessment and Plan (1) Closed fracture of distal end of left fibula and tibia Current Visit: Yes Status: Acute Code(s): S82.302A - UNSP FRACTURE OF LOWER END OF LEFT TIBIA, INIT FOR CLOS FX; S82.832A - OTH FRACTURE OF UPPER AND LOWER END OF LEFT FIBULA, INIT SNOMED Code(s): 258093033 (2) Diabetes mellitus Current Visit: Yes Status: Acute Code(s): E11.9 - TYPE 2 DIABETES MELLITUS WITHOUT COMPLICATIONS SNOMED Code(s): 31125536 (3) Inability to ambulate due to ankle or foot Current Visit: Yes Status: Acute Code(s): R26.2 - DIFFICULTY IN WALKING, NOT ELSEWHERE CLASSIFIED SNOMED Code(s): 948844597 (4) Left ankle pain Current Visit: Yes Status: Acute Code(s): M25.572 - PAIN IN LEFT ANKLE AND JOINTS OF LEFT FOOT SNOMED Code(s): 622436584 Plan: The clinical findings are discussed the patient. She is planning discharge to inpatient rehab when cleared medically and when authorization is approved. She may be discharged from an orthopedic standpoint and any time.
[2020-11-10 16:18] LABS: Basophils % (A) 1 %; Eosinophils # (A) 0.5 k/uL (0-0.7); Eosinophils % (A) 9 %; HCT 40.1 % (34.0-46.0); HGB 12.7 gm/dL (11.4-16.0); Hypochromasia Slight; Lymphocytes # (A) 2.5 k/uL (1.0-4.8); Lymphocytes % (A) 45 %; MCH 23.1 pg (25.0-35.0); MCHC 31.6 g/dL (31.0-37.0); MCV 72.9 fL (80.0-100.0); Mean Platelet Volume 7.3; Microcytosis Slight; Monocytes # (A) 0.8 k/uL (0-1.0); Monocytes % (A) 14 %; Neutrophils # (A) 1.8 k/uL (1.3-7.7); Neutrophils % (A) 31 %; Platelet Count 262 k/uL (150-450); RDW 15.1 % (11.5-15.5); WBC 5.6 k/uL (3.8-10.6)
[2020-11-10 16:27] LABS: Glucose,Whole Blood 190 mg/dL (75-99)
[2020-11-10] MEDS: HYDROcodone/APAP 5-325MG 1 EACH TAB PO PRN (17:35)
[2020-11-10] MEDS: hydrOXYzine pamoate 25 MG CAP PO PRN (17:36)
--- NOTE | 2020-11-10 19:10 | P.PN ---
Subjective 75-year-old pleasant female was admitted for closed fracture of distal end of fibula and tibia .Patient had a fall while walking her dog which was a mechanical fall. Patient denied any syncopal episode. Patient denied any history of congestive heart failure She is status post open reduction and internal fixation and /, currently her left ankle is in cast and orthopedic team on the case. This morning patient denies any symptoms other than occasional pain at the fracture site. Patient currently is pain controlled. And she is hemodynamic ally stable. We will also monitoring the patient closely for low platelet counts, and down to 70 6K yesterday however this morning is normal at 253, rest of CBC is unremarkable. Liver enzymes came back to within normal limits. Bilirubin is not elevated. Patient denies any other symptoms. No chest pain or abdominal pain. No dyspnea. Or bowel habits. No fever. Patient is pending her insurance provider authorization other than sanchez patient is medically stable to be transferred to [facility]. Patient was instructed to follow up with her PCP in one week after discharge and she agrees. 11/10/2020 Patient is clinically stable. No complaints. The pain in her left ankle is controlled Blood pressure is elevated, with systolic 170/65, with doubled the dose of Norvasc yesterday to 10 mg daily. Today we increased and doubled the dose of lisinopril 20 mg daily to twice a day and metoprolol 100 mg daily to twice a day. Thrombocytopenia and mildly elevated liver enzymes are completely resolved and all labs came back to normal Patient on DVT prophylaxis per orthopedic team Patient is medically stable to be transferred to [facility], possibly tomorrow as today's weekend Objective - Vital Signs Vital signs: Vital Signs Temp 98.1 F 11/10/20 14:17 Pulse 81 11/10/20 14:17 Resp 17 11/10/20 14:17 BP 172/65 11/10/20 14:17 Pulse Ox 98 11/10/20 14:17 Intake & Output 11/10/20 11/10/20 11/11/20 06:59 18:59 06:59 Output Total 2200 1200 Balance -2200 -1200 Output: Urine 2200 1200 Other: Voiding Method External Catheter # Bowel Movements 1 - Exam GENERAL: The patient is alert and oriented x3, not in any acute distress. Well developed, well nourished. HEENT: Pupils are round and equally reacting to light. EOMI. No scleral icterus. No conjunctival pallor. Normocephalic, atraumatic. No pharyngeal erythema. No thyromegaly. CARDIOVASCULAR: S1 and S2 present. No murmurs, rubs, or gallops. PULMONARY: Chest is clear to auscultation, no wheezing or crackles. ABDOMEN: Soft, nontender, nondistended, normoactive bowel sounds. No palpable organomegaly. MUSCULOSKELETAL: No joint swelling or deformity. -EXTREMITIES: No cyanosis, clubbing, or pedal edema. Right ankle open heart cast NEUROLOGICAL: Gross neurological examination did not reveal any focal deficits. SKIN: No rashes. no petechiae. - Labs CBC & Chem 7: 11/10/20 15:28 11/08/20 05:17 Labs: Abnormal Lab Results - Last 24 Hours (Table) 11/09/20 11/10/20 11/10/20 Range/Units 20:50 07:03 11:34 RBC (3.80-5.40) m/uL MCV (80.0-100.0) fL MCH (25.0-35.0) pg POC Glucose (mg/dL) 258 H 207 H 230 H (75-99) mg/dL 11/10/20 11/10/20 Range/Units 15:28 16:26 RBC 5.50 H (3.80-5.40) m/uL MCV 72.9 L (80.0-100.0) fL MCH 23.1 L (25.0-35.0) pg POC Glucose (mg/dL) 190 H (75-99) mg/dL Assessment and Plan Assessment: -Acute left ankle fracture, status post open reduction and internal fixation -Mild thrombocytopenia. Completely resolved -hypertension resumed on amlodipine continue with the lisinopril and metoprolol, we doubled the dose for all 3 MEDICATION for uncontrolled hypertension -Gastroesophageal reflux disease -Type 2 diabetes mellitus, continue sliding scale and will resume oral hypoglycemic agents upon discharge -hyperlipidemia. -Distal left fibular, tibia fracture. -Asymptomatic bacteriuria will not require any antibiotics Patient is medically stable to be transferred to [facility]
[2020-11-10] MEDS: bisacodyL 5 MG TABLET.DR PO PRN (20:13)
[2020-11-10] MEDS: PRAVASTATIN SODIUM 20 MG TAB PO SCH (20:13)
[2020-11-10 20:21] LABS: Glucose,Whole Blood 299 mg/dL (75-99)
[2020-11-11 02:14] VITALS: TEMP 98.4
[2020-11-11] MEDS: hydrOXYzine pamoate 25 MG CAP PO PRN (05:27)
[2020-11-11 06:59] LABS: Glucose,Whole Blood 199 mg/dL (75-99)
[2020-11-11] MEDS: PANTOPRAZOLE 40 MG TABLET PO SCH (08:06)
[2020-11-11] MEDS: METOPROLOL SUCCINATE (ER) 100 MG TAB.ER.24H PO SCH (08:06)
[2020-11-11] MEDS: CALCIUM CARBONATE 500 MG CHEWABLE PO SCH (08:06)
[2020-11-11] MEDS: traMADol 50 MG TAB PO SCH (08:06)
[2020-11-11] MEDS: lisinopriL 20 MG TAB PO SCH (08:07)
[2020-11-11] MEDS: amLODIPine 10 MG TAB PO SCH (08:07)
[2020-11-11] MEDS: ASPIRIN 81 MG PO SCH (08:07)
[2020-11-11] MEDS: INSULIN ASPART (NovoLOG) 100 UNIT/ML VIAL SQ SCH ×2 (08:07→12:36)
[2020-11-11] MEDS: CHOLECALCIFEROL 25 MCG (1000 IU) TABLET PO SCH (08:07)
[2020-11-11] MEDS: FLUTICASONE 50MCG/SPRAY NASAL 16GM EA NOSTRIL SCH (08:08)
[2020-11-11] MEDS: IPRATROPIUM-ALBUTEROL 3 ML NEB INHALATION PRN (08:11)
[2020-11-11 08:24] VITALS: RESP 18
[2020-11-11 08:26] VITALS: PULSE 84
--- NOTE | 2020-11-11 10:10 | P.DS ---
Providers Date of admission: 11/06/20 16:19 Expected date of discharge: 11/11/20 Attending physician: Giuseppe Lacey Consults: 11/05/20 09:49 Consult Physician Urgent Consulting Provider: Hardeep Banuelos Consult Reason/Comments: pre-op medical clearance Do you want consulting provider notified?: Yes Primary care physician: Freddy Elise - Discharge Diagnosis(es) (1) Closed fracture of distal end of left fibula and tibia Current Visit: Yes Status: Acute (2) Diabetes mellitus Current Visit: Yes Status: Acute (3) Inability to ambulate due to ankle or foot Current Visit: Yes Status: Acute (4) Left ankle pain Current Visit: Yes Status: Acute Hospital Course: This patient is a 75- year old female that is status-post left ankle open reduction and internal fixation on 11/07/20. Today is post-operative day #4. Patient is seen and examined bedside this morning. She states her ankle is painful, although her pain is well-controlled at this time. She is tolerating her diet well. Patient has been up to the bedside chair today with physical therapy. Patient denies chest pain, shortness of breath, nausea, vomiting, fevers, chills. Vital signs stable. The patient may be discharged to inpatient rehab today. She is to follow-up with Dr. Lacey in 2 weeks. She is nonweightbearing with walker left lower extremity. Patient Condition at Discharge: Stable Plan - Discharge Summary Discharge Rx Participant: No New Discharge Prescriptions: New HYDROcodone/APAP 5-325MG [Roosevelt 5-325] 1 tab PO Q6HR PRN 7 Days #30 tab PRN Reason: Pain No Action Aspirin EC [Ecotrin Low Dose] 81 mg PO DAILY Pravastatin Sodium [Pravachol] 20 mg PO HS lisinopriL [Zestril] 20 mg PO DAILY Fluticasone Nasal [place] [Flonase Nasal [place]] 1 spr EA NOSTRIL DAILY Calcium Carbonate [Calcium] 1,200 mg PO BID Pioglitazone [Actos] 15 mg PO DAILY Metoprolol Succinate (ER) [Toprol Xl] 100 mg PO DAILY metFORMIN HCL [Glucophage] 1,000 mg PO BID Ipratropium-Albuterol Nebulize [Duoneb 0.5 mg-3 mg/3 ml Soln] 3 ml INHALATION RT-QID PRN PRN Reason: Shortness Of Breath Empagliflozin [Jardiance] 25 mg PO DAILY Psyllium Husk (with Sugar) [Metamucil Powder] 5 ml PO DAILY Cholecalciferol [Vitamin D3 (25 Mcg = 1000 Iu)] 50 mcg PO DAILY Pantoprazole Sodium 40 mg PO DAILY amLODIPine [Norvasc] 5 mg PO DAILY Dulaglutide [Trulicity] 1.5 mg SQ TH Discharge Medication List Aspirin EC [Ecotrin Low Dose] 81 mg PO DAILY 07/24/16 [History] Pravastatin Sodium [Pravachol] 20 mg PO HS 07/24/16 [History] lisinopriL [Zestril] 20 mg PO DAILY 07/24/16 [History] Fluticasone Nasal [place] [Flonase Nasal [place]] 1 spr EA NOSTRIL DAILY 02/06/18 [History] Calcium Carbonate [Calcium] 1,200 mg PO BID 11/05/20 [History] Cholecalciferol [Vitamin D3 (25 Mcg = 1000 Iu)] 50 mcg PO DAILY 11/05/20 [History] Dulaglutide [Trulicity] 1.5 mg SQ TH 11/05/20 [History] Empagliflozin [Jardiance] 25 mg PO DAILY 11/05/20 [History] Ipratropium-Albuterol Nebulize [Duoneb 0.5 mg-3 mg/3 ml Soln] 3 ml INHALATION RT-QID PRN 11/05/20 [History] Metoprolol Succinate (ER) [Toprol Xl] 100 mg PO DAILY 11/05/20 [History] Pantoprazole Sodium 40 mg PO DAILY 11/05/20 [History] Pioglitazone [Actos] 15 mg PO DAILY 11/05/20 [History] Psyllium Husk (with Sugar) [Metamucil Powder] 5 ml PO DAILY 11/05/20 [History] amLODIPine [Norvasc] 5 mg PO DAILY 11/05/20 [History] metFORMIN HCL [Glucophage] 1,000 mg PO BID 11/05/20 [History] HYDROcodone/APAP 5-325MG [Roosevelt 5-325] 1 tab PO Q6HR PRN 7 Days #30 tab 11/08/20 [Rx] Follow up Appointment(s)/Referral(s): Freddy Elise DO [Primary Care Provider] - 1-2 days Giuseppe Lacey MD [STAFF PHYSICIAN] - 2 Weeks Activity/Diet/Wound Care/Special Instructions: Heart healthy diet with low salt and low cholesterol Activity is restricted till you see your doctor Nonweightbearing left lower extremity with walker. We recommend to check your basic metabolic panel including creatinine and electrolytes with sodium and potassium weekly. Discharge Disposition: TRANSFER TO SNF/ECF
[2020-11-11 11:47] VITALS: BP 167/74
[2020-11-11 11:49] LABS: Glucose,Whole Blood 287 mg/dL (75-99)
--- NOTE | 2020-11-12 00:29 | P.PN ---
Subjective 75-year-old pleasant female was admitted for closed fracture of distal end of fibula and tibia .Patient had a fall while walking her dog which was a mechanical fall. Patient denied any syncopal episode. Patient denied any history of congestive heart failure She is status post open reduction and internal fixation and 60/17, currently her left ankle is in cast and orthopedic team on the case. This morning patient denies any symptoms other than occasional pain at the fracture site. Patient currently is pain controlled. And she is hemodynamic ally stable. We will also monitoring the patient closely for low platelet counts, and down to 70 6K yesterday however this morning is normal at 253, rest of CBC is unremarkable. Liver enzymes came back to within normal limits. Bilirubin is not elevated. Patient denies any other symptoms. No chest pain or abdominal pain. No dyspnea. Or bowel habits. No fever. Patient is pending her insurance provider authorization other than sanchez patient is medically stable to be transferred to [facility]. Patient was instructed to follow up with her PCP in one week after discharge and she agrees. 11/10/2020 Patient is clinically stable. No complaints. The pain in her left ankle is controlled Blood pressure is elevated, with systolic 170/65, with doubled the dose of Norvasc yesterday to 10 mg daily. Today we increased and doubled the dose of lisinopril 20 mg daily to twice a day and metoprolol 100 mg daily to twice a day. Thrombocytopenia and mildly elevated liver enzymes are completely resolved and all labs came back to normal Patient on DVT prophylaxis per orthopedic team Patient is medically stable to be transferred to [facility], possibly tomorrow as today's weekend 11/11/2020 2 Patient left ankle pain is improving every day. No other complaints. Addendum stable. Her blood pressure was uncontrolled with this BP 170-90. We doubled all her medications including Norvasc, metoprolol and lisinopril, her blood pressure improved prior to discharge Patient is been discharged today to [facility] for rehab and patient agrees with the plan patient is medically stable for discharge but needs follow-up as an outpatient with PCP in one week, patient was instructed with the same and she agrees Objective - Vital Signs Vital signs: Vital Signs Temp 98.4 F 11/11/20 08:00 Pulse 84 11/11/20 08:25 Resp 18 11/11/20 08:00 BP 153/76 11/11/20 08:00 Pulse Ox 98 11/11/20 08:00 Intake & Output 11/10/20 11/11/20 11/11/20 18:59 06:59 18:59 Output Total 1200 900 Balance -1200 -900 Output: Urine 1200 900 Other: Voiding Method External Catheter # Bowel Movements 1 - Exam GENERAL: The patient is alert and oriented x3, not in any acute distress. Well developed, well nourished. HEENT: Pupils are round and equally reacting to light. EOMI. No scleral icterus. No conjunctival pallor. Normocephalic, atraumatic. No pharyngeal erythema. No thyromegaly. CARDIOVASCULAR: S1 and S2 present. No murmurs, rubs, or gallops. PULMONARY: Chest is clear to auscultation, no wheezing or crackles. ABDOMEN: Soft, nontender, nondistended, normoactive bowel sounds. No palpable organomegaly. MUSCULOSKELETAL: No joint swelling or deformity. -EXTREMITIES: No cyanosis, clubbing, or pedal edema. Right ankle open heart cast NEUROLOGICAL: Gross neurological examination did not reveal any focal deficits. SKIN: No rashes. no petechiae. - Labs CBC & Chem 7: 11/10/20 15:28 11/08/20 05:17 Labs: Abnormal Lab Results - Last 24 Hours (Table) 11/10/20 11/10/20 11/10/20 Range/Units 11:34 15:28 16:26 RBC 5.50 H (3.80-5.40) m/uL MCV 72.9 L (80.0-100.0) fL MCH 23.1 L (25.0-35.0) pg POC Glucose (mg/dL) 230 H 190 H (75-99) mg/dL 11/10/20 11/11/20 Range/Units 20:19 06:58 RBC (3.80-5.40) m/uL MCV (80.0-100.0) fL MCH (25.0-35.0) pg POC Glucose (mg/dL) 299 H 199 H (75-99) mg/dL Assessment and Plan Assessment: -Acute left ankle fracture, status post open reduction and internal fixation -Mild thrombocytopenia. Completely resolved -hypertension resumed on amlodipine continue with the lisinopril and metoprolol, we doubled the dose for all 3 MEDICATION for uncontrolled hypertension. Blood pressure is more stable upon discharge -Gastroesophageal reflux disease -Type 2 diabetes mellitus, continue sliding scale and will resume oral hypoglycemic agents upon discharge -hyperlipidemia. -Distal left fibular, tibia fracture. -Asymptomatic bacteriuria will not require any antibiotics Patient is medically stable to be transferred to [facility]
== END 2020-11-11 14:24 | DRG 494 ==
LOC: EC 07:46 → 4SSUR 10:06 → OBSVTOIN 11-06 16:19
PROVIDERS: ADMIT Orthopaedic Surgery Sports Medicine; ATTEND Orthopaedic Surgery Sports Medicine
PROC: 0QSK04Z Reposition Left Fibula with Internal Fixation Device, Open Approach (ICD-10-PCS; principal; 2020-11-07 07:00)
PROC: 0QSH04Z Reposition Left Tibia with Internal Fixation Device, Open Approach (ICD-10-PCS; principal; 2020-11-07 07:00)
DX: S82.842A Displaced bimalleolar fracture of left lower leg, initial encounter for closed fracture (principal); W18.30XA Fall on same level, unspecified, initial encounter; D69.6 Thrombocytopenia, unspecified; R94.5 Abnormal results of liver function studies; E66.9 Obesity, unspecified; Z68.34 Body mass index [BMI] 34.0-34.9, adult; Z20.822 Contact with and (suspected) exposure to COVID-19; E11.9 Type 2 diabetes mellitus without complications; E78.5 Hyperlipidemia, unspecified; I10 Essential (primary) hypertension; J44.9 Chronic obstructive pulmonary disease, unspecified; K21.9 Gastro-esophageal reflux disease without esophagitis; M17.12 Unilateral primary osteoarthritis, left knee; Z79.82 Long term (current) use of aspirin; Z79.84 Long term (current) use of oral hypoglycemic drugs; Z79.899 Other long term (current) drug therapy; G89.29 Other chronic pain; Z80.8 Family history of malignant neoplasm of other organs or systems; M54.30 Sciatica, unspecified side; Z80.42 Family history of malignant neoplasm of prostate; L30.9 Dermatitis, unspecified; R32 Unspecified urinary incontinence; R00.1 Bradycardia, unspecified; Z98.890 Other specified postprocedural states; Z86.19 Personal history of other infectious and parasitic diseases; Z87.19 Personal history of other diseases of the digestive system; Z88.0 Allergy status to penicillin; Z88.2 Allergy status to sulfonamides; Z87.440 Personal history of urinary (tract) infections; Z98.42 Cataract extraction status, left eye; Z98.41 Cataract extraction status, right eye
CPT/HCPCS: 29515; 36415; 64445; 64447; 71046; 76942; 80048; 80053; 80076; 81001; 85025; 85027; 85610; 85730; 87635; 93005; 94640; 96374; 99285

== ENCOUNTER → 2021-09-25 | Outpatient (CLI) | payer MEDICARE, OTHER ==
--- NOTE | 2021-09-26 12:55 | MM ---
Reason for exam: screening (asymptomatic). Last mammogram was performed 1 year and 4 months ago. History: Patient is postmenopausal. Excisional biopsy of the right breast, 2011. Physical Findings: A clinical breast exam by your physician is recommended on an annual basis and results should be correlated with mammographic findings. MG Screening Mammo w CAD Bilateral CC and MLO view(s) were taken. Prior study comparison: May 16, 2020, bilateral MG screening mammo w CAD. March 24, 2019, bilateral MG screening mammo w CAD. There are scattered fibroglandular densities. Stable scattered calcifications. There is no discrete abnormality. No significant changes when compared with prior studies. ASSESSMENT: Benign, BI-RAD 2 RECOMMENDATION: Routine screening mammogram of both breasts in 1 year.
== END | disposition home or self-care (01) ==
LOC: RADMAMWWP 10:27
PROVIDERS: ATTEND Internal Medicine
DX: Z12.31 Encounter for screening mammogram for malignant neoplasm of breast (principal)
CPT/HCPCS: 77067

== ENCOUNTER → 2022-10-16 | Outpatient (CLI) | payer MEDICARE, OTHER ==
--- NOTE | 2022-10-20 08:37 | MM ---
Reason for Exam: Screening (asymptomatic). Last screening mammogram was performed 12 month(s) ago. Patient History: Menarche at age 11. First Full-Term at age 22. Postmenopausal. 2011, Excisional Biopsy on the Right side. Risk Values: Shara 5 year model risk: 1.7%. NCI Lifetime model risk: 3.5%. Prior Study Comparison: 03/24/2019 Bilateral Screening Mammogram, [facility]. 05/16/2020 Bilateral Screening Mammogram, [facility]. 09/25/2021 Bilateral Screening Mammogram, [facility]. Tissue Density: There are scattered fibroglandular densities. Findings: Analyzed By CAD. There is no suspicious group of microcalcifications or new suspicious mass in either breast. Overall Assessment: Benign, BI-RAD 2 Management: Screening Mammogram of both breasts in 1 year. . Patient should continue monthly self-breast exams. A clinical breast exam by your physician is recommended on an annual basis. This exam should not preclude additional follow-up of suspicious palpable abnormalities. Note on Shara scores and lifetime risk: 1. A Shara score greater than 3% is considered moderate risk. If this is the case, consider specialist referral to assess eligibility for a risk reducing agent. 2. If overall lifetime risk for the development of breast cancer is 20% or higher, the patient may qualify for future screening with alternating mammogram and breast MRI. Electronically signed and approved by: Carlyle Knutson M.D. Radiologis
== END | disposition home or self-care (01) ==
LOC: RADMAMWWP 14:15
PROVIDERS: ATTEND Family Medicine
DX: Z12.31 Encounter for screening mammogram for malignant neoplasm of breast (principal); Z78.0 Asymptomatic menopausal state
CPT/HCPCS: 77067

== ENCOUNTER 2023-03-21 12:11 | Emergency (ER) | payer MEDICARE, OTHER ==
[2023-03-21] MEDS ORDERED: SODIUM CHLORIDE 0.9% 1,000 ML IV STA (12:51)
[2023-03-21] MEDS ORDERED: PANTOPRAZOLE 40 MG/10 ML VIAL IVP STA (12:51)
[2023-03-21] MEDS ORDERED: KETOROLAC 15 MG/ML 1 ML VIAL IVP STA (12:51)
[2023-03-21] MEDS ORDERED: ONDANSETRON 4 MG/2 ML VIAL IVP STA (12:51)
[2023-03-21 13:11] LABS: Basophils % (A) 1 %; Eosinophils # (A) 0.2 k/uL (0-0.7); Eosinophils % (A) 3 %; HCT 48.9 % (34.0-46.0); Hypochromasia Moderate; Lymphocytes # (A) 3.4 k/uL (1.0-4.8); Lymphocytes % (A) 45 %; MCH 23.1 pg (25.0-35.0); MCHC 30.8 g/dL (31.0-37.0); Mean Platelet Volume 7.6; Microcytosis Slight; Monocytes # (A) 0.6 k/uL (0-1.0); Monocytes % (A) 7 %; Neutrophils # (A) 3.2 k/uL (1.3-7.7); Neutrophils % (A) 42 %; Platelet Count 269 k/uL (150-450); RBC 6.51 m/uL (3.80-5.40); RDW 15.3 % (11.5-15.5); WBC 7.5 k/uL (3.8-10.6)
[2023-03-21 13:13] VITALS: RESP 18
[2023-03-21 13:20] LABS: INR 1.1 (<1.2); Partial Thromboplastin Time 26.7 sec (22.0-30.0); Prothrombin Time 11.8 sec (10.0-12.5)
[2023-03-21 13:23] LABS: ALT 47 U/L (4-34); AST 51 U/L (14-36); African American GFR (CKD) >90 (>60 ml/min/1.73 sqM); Albumin 4.7 g/dL (3.5-5.0); Alkaline Phosphatase 121 U/L (38-126); Amylase 56 U/L (30-110); Anion Gap 13 mmol/L; Blood Urea Nitrogen 11 mg/dL (7-17); Calcium 9.8 mg/dL (8.4-10.2); Carbon Dioxide 25 mmol/L (22-30); Chloride 100 mmol/L (98-107); Glucose 135 mg/dL (74-99); Lipase 86 U/L (23-300); Non-African American GFR(CKD) >90 (>60 ml/min/1.73 sqM); Potassium 4.6 mmol/L (3.5-5.1); Sodium 138 mmol/L (137-145); Total Bilirubin 0.7 mg/dL (0.2-1.3); Total Protein 8.5 g/dL (6.3-8.2)
--- NOTE | 2023-03-21 13:53 | ED ---
General Adult HPI - General Chief complaint: Abdominal Pain Stated complaint: R side Abd Pain Time Seen by Provider: 03/21/23 12:41 Source: patient, RN notes reviewed, old records reviewed Mode of arrival: wheelchair Limitations: no limitations - History of Present Illness Initial comments: Patient is a 77-year-old female who presents in the department complaining of right upper quadrant pain. Has a history diabetes, hypertension, hyperlipidemia. She also has a history of colon resection in 2019. Patient presents emergency Department complaining of right upper quadrant abdominal pain. His been ongoing for a few days. No known palliative or provocative factors. Endorses nausea but no episodes of emesis. Denies any change in stooling. As the urinary complaints. Denies chest pain or shortness of breath. Denies fevers. No other acute complaints at this time. Presents for further evaluation for concern for the belly pain. - Related Data Home Medications Medication Instructions Recorded Confirmed Aspirin EC [Ecotrin Low Dose] 81 mg PO DAILY 07/24/16 11/05/20 Pravastatin Sodium [Pravachol] 20 mg PO HS 07/24/16 11/05/20 Fluticasone Nasal [place] [Flonase 1 spr EA NOSTRIL DAILY 02/06/18 11/05/20 Nasal [place]] Calcium Carbonate [Calcium] 1,200 mg PO BID 11/05/20 11/05/20 Cholecalciferol [Vitamin D3 (25 50 mcg PO DAILY 11/05/20 11/05/20 Mcg = 1000 Iu)] Dulaglutide [Trulicity] 1.5 mg SQ TH 11/05/20 11/05/20 Empagliflozin [Jardiance] 25 mg PO DAILY 11/05/20 11/05/20 Ipratropium-Albuterol Nebulize 3 ml INHALATION RT-QID PRN 11/05/20 11/05/20 [Duoneb 0.5 mg-3 mg/3 ml Soln] Pantoprazole Sodium 40 mg PO DAILY 11/05/20 11/05/20 Pioglitazone [Actos] 15 mg PO DAILY 11/05/20 11/05/20 Psyllium Husk (with Sugar) 5 ml PO DAILY 11/05/20 11/05/20 [Metamucil Powder] metFORMIN HCL [Glucophage] 1,000 mg PO BID 11/05/20 11/05/20 Previous Rx's Medication Instructions Recorded HYDROcodone/APAP 5-325MG [[place] 1 tab PO Q6HR PRN 7 Days #30 tab 11/08/20 5-325] Acetaminophen Tab [Tylenol] 650 mg PO Q6HR PRN tab 11/11/20 INSULIN ASPART (NovoLOG) [NovoLOG 0 unit SQ ACHS vial 11/11/20 (formulary)] Metoprolol Succinate (ER) [Toprol 100 mg PO BID tab.er.24h 11/11/20 XL] Sennosides-Docusate Sodium 2 each PO BID tab 11/11/20 [Senokot-S] amLODIPine [Norvasc] 10 mg PO DAILY tab 11/11/20 bisacodyL [Dulcolax] 5 mg PO DAILY PRN tablet. 11/11/20 hydrALAZINE HCL [Apresoline] 25 mg PO TID PRN #30 tab 11/11/20 lisinopriL [Zestril] 20 mg PO BID tab 11/11/20 Dicyclomine [Bentyl] 10 mg PO TID PRN 5 Days #15 capsule 03/21/23 Allergies Allergy/AdvReac Type Severity Reaction Status Date / Time Penicillins Allergy Rash/Hives Verified 03/21/23 12:31 Sulfa (Sulfonamide Allergy Rash/Hives Verified 03/21/23 12:31 Antibiotics) Review of Systems ROS Statement: Those systems with pertinent positive or pertinent negative responses have been documented in the HPI. Review of Systems: CONST: Denies fever EYES: Denies blurry vision ENT: Denies nasal congestion C/V: Denies Chest pain RESP: Denies shortness of breath GI: Endorses abdominal pain : Denies dysuria SKIN: Denies rash. MSK: Denies joint pain. NEURO: Denies headache ROS Other: All systems not noted in ROS Statement are negative. Past Medical History Past Medical History: Diabetes Mellitus, GERD/Reflux, Hyperlipidemia, Hypertension, Osteoarthritis (OA) Additional Past Medical History / Comment(s): urinary incont, uti, tole in 1995 had a touch of copd-quit smoking, eczema, chronic back pain, sciatica, ddd, herniated disc, per past med hx hep 04-18-86, menigitis 07-19-1969, diverticulitis History of Any Multi-Drug Resistant Organisms: None Reported Past Surgical History: Section, Heart Catheterization Additional Past Surgical History / Comment(s): x3 c-sections, cataracts,lt breast bx-neg, Colon resection 09/2018 Past Anesthesia/Blood Transfusion Reactions: No Reported Reaction Past Psychological History: No Psychological Hx Reported Smoking Status: Former smoker Past Alcohol Use History: None Reported Past Drug Use History: None Reported - Past Family History Mother Family Medical History: Cancer Additional Family Medical History / Comment(s): brain ca Father Family Medical History: Cancer Additional Family Medical History / Comment(s): prostate cancer General Exam - General Exam Comments Initial Comments: General: Appears in no acute distress. HEAD: Normal with no signs of head trauma. EYES: PERRLA, EOMI, conjunctiva normal, no discharge. ENT: Hearing grossly intact, normal oropharynx. RESPIRATORY: Clear breath sounds bilaterally. No wheezes, rales, or rhonchi. C/V: Regular rate and rhythm. S1 and S2 auscultated, peripheral pulses 2+ and intact throughout ABD: Abdomen is soft, nondistended. Tender palpation in the right upper quadrant and right mid quadrant. No guarding. No peritoneal signs. No rebound tenderness. EXT: Normal range of motion, no obvious deformity SKIN: No rashes or lesions observed on exposed skin. NEURO: Alert and oriented 4. Limitations: no limitations Course Vital Signs 03/21/23 03/21/23 12:32 14:43 Temperature 98 F Pulse Rate 73 73 Respiratory 18 18 Rate Blood Pressure 153/71 150/76 O2 Sat by Pulse 94 L 96 Oximetry Medical Decision Making - Medical Decision Making Was pt. sent in by a medical professional or institution (, PA, CRIMINAL DEFENSE LAWYER, urgent care, hospital, or [place] health care facility...) When possible be specific @ -No Did you speak to anyone other than the patient for history (EMS, parent, family, police, friend...)? What history was obtained from this source @ -No Did you review nursing and triage notes (agree or disagree)? Why? @ -I reviewed and agree with nursing and triage notes Were old charts reviewed (outside hosp., previous admission, EMS record, old EKG, old radiological studies, urgent care reports/EKG's, [place] health care facility records)? Report findings @ -Old charts reviewed. Differential Diagnosis (chest pain, altered mental status, abdominal pain women, abdominal pain men, vaginal bleeding, weakness, fever, dyspnea, syncope, headache, dizziness, GI bleed, back pain, seizure, CVA, palpatations, mental health, musculoskeletal)? @ -Differential Abdominal Pain Women: Appendicitis, Cholecystitis, diverticulosis, ischemic bowel, pancreatitis, hepatitis, UTI, gastroenteritis, AAA, incarcerated hernia, bowel obstruction, constipation, inflammatory bowel, hepatitis, peptic ulcer disease, splenic infarction, perforated viscus, vulvitis, ovarian torsion, PID, kidney stone, placenta abruption, this is not meant to be an all-inclusive list EKG interpreted by me (3pts min.). @ -As above X-rays interpreted by me (1pt min.). @ -None done CT interpreted by me (1pt min.). @ -CT imaging negative for any obvious acute abdominal process. U/S interpreted by me (1pt. min.). @ -Right upper quadrant ultrasound negative for any obvious acute gallbladder pathology. What testing was considered but not performed or refused? (CT, X-rays, U/S, l abs)? Why? @ -None What meds were considered but not given or refused? Why? @ -None Did you discuss the management of the patient with other professionals (professionals i.e. , PA, CRIMINAL DEFENSE LAWYER, lab, RT, psych nurse, social psychologist, wincher, teacher, placement officer, top case assembler)? Give summary @ -No Was smoking cessation discussed for >3mins.? @ -No Was critical care preformed (if so, how long)? @ -No Were there social determinants of health that impacted care today? How? (Homelessness, low income, unemployed, alcoholism, drug addiction, transportation, low edu. Level, literacy, decrease access to med. care, shelter, rehab)? @ -No Was there de-escalation of care discussed even if they declined (Discuss DNR or withdrawal of care, Hospice)? DNR status @ -No What co-morbidities impacted this encounter? (DM, HTN, Smoking, COPD, CAD, Cance r, CVA, ARF, Chemo, Hep., AIDS, mental health diagnosis, sleep apnea, morbid obesity)? @ -None Was patient admitted / discharged? Hospital course, mention meds given and route, prescriptions, significant lab abnormalities, going to OR and other pertinent info. @ -Based on the patient's presentation and physical exam, concern for abdominal pain and acute abdominal process for patient's current symptoms. No real atypical ACS. We'll obtain abdominal labs, troponin, EKG. He also obtain right upper quadrant. PATIENT WAS IN AGREEMENT THIS PLAN. SHE'LL BE GIVEN IV TORADOL, ZOFRAN, PROTONIX AND 1 L FLUID BOLUS FOR PAIN. VITAL SIGNS WITHIN ACCEPTABLE LIMITS.Patient's laboratory studies are remarkable for undetectable troponin. Remainder the labs within acceptable limits. Urine is still pending at this time. EKG shows no signs of acute ischemia.Right upper quadrant ultrasound reveals no evidence of obvious hepatobiliary disease. CT abdomen and pelvis will be obtained at this time. I discussed this with the patient she was in agreement this plan. She'll also be given a low-dose morphine. CT imaging negative for any obvious acute intra-abdominal process. I discussed results with the patient. She is feeling improved. Diagnosis is abdominal pain of unknown reason. She'll be discharged home at this time. She was in agreement this plan. Strict return precautions discussed. I will provide the patient with a prescription for ODT Anisa Marquis. I instructed the patient to follow up with their PCP in the next 1-3 days. I explained that the patient should return to the emergency department if they experience any worsening symptoms. Strict return precautions were discussed with the patient. The patient expressed understanding of these instructions. I answered all questions that the patient had. The patient was discharged home in good condition with their prescriptions and follow up information. Undiagnosed new problem with uncertain prognosis? @ -No Drug Therapy requiring intensive monitoring for toxicity (Heparin, Nitro, Insulin, Cardizem)? @ -No Were any procedures done? @ -No Diagnosis/symptom? @ -Abdominal pain of unknown etiology Acute, or Chronic, or Acute on Chronic? @ -Acute Uncomplicated (without systemic symptoms) or Complicated (systemic symptoms)? @ -Uncomplicated Side effects of treatment? @ -none Exacerbation, Progression, or Severe Exacerbation] @ -no Poses a threat to life or bodily function? @ -no - Lab Data Result diagrams: 03/21/23 12:51 03/21/23 12:51 Lab Results 03/21/23 03/21/23 03/21/23 Range/Units 12:51 12:51 12:51 WBC 7.5 (3.8-10.6) k/uL RBC 6.51 H (3.80-5.40) m/uL Hgb 15.0 (11.4-16.0) gm/dL Hct 48.9 H (34.0-46.0) % MCV 75.0 L (80.0-100.0) fL MCH 23.1 L (25.0-35.0) pg MCHC 30.8 L (31.0-37.0) g/dL RDW 15.3 (11.5-15.5) % Plt Count 269 (150-450) k/uL MPV 7.6 Neutrophils % 42 % Lymphocytes % 45 % Monocytes % 7 % Eosinophils % 3 % Basophils % 1 % Neutrophils # 3.2 (1.3-7.7) k/uL Lymphocytes # 3.4 (1.0-4.8) k/uL Monocytes # 0.6 (0-1.0) k/uL Eosinophils # 0.2 (0-0.7) k/uL Basophils # 0.0 (0-0.2) k/uL Hypochromasia Moderate Microcytosis Slight PT 11.8 (10.0-12.5) sec INR 1.1 (<1.2) APTT 26.7 (22.0-30.0) sec Sodium 138 (137-145) mmol/L Potassium 4.6 (3.5-5.1) mmol/L Chloride 100 (98-107) mmol/L Carbon Dioxide 25 (22-30) mmol/L Anion Gap 13 mmol/L BUN 11 (7-17) mg/dL Creatinine 0.58 (0.52-1.04) mg/dL Est GFR (CKD-EPI)AfAm >90 (>60 ml/min/1.73 sqM) Est GFR (CKD-EPI)NonAf >90 (>60 ml/min/1.73 sqM) Glucose 135 H (74-99) mg/dL Plasma Lactic Acid Shawn (0.7-2.0) mmol/L Calcium 9.8 (8.4-10.2) mg/dL Total Bilirubin 0.7 (0.2-1.3) mg/dL AST 51 H (14-36) U/L ALT 47 H (4-34) U/L Alkaline Phosphatase 121 (38-126) U/L Troponin I (0.000-0.034) ng/mL Total Protein 8.5 H (6.3-8.2) g/dL Albumin 4.7 (3.5-5.0) g/dL Amylase 56 (30-110) U/L Lipase 86 (23-300) U/L Urine Color Urine Appearance (Clear) Urine pH (5.0-8.0) Ur Specific [place] (1.001-1.035) Urine Protein (Negative) Urine Glucose (UA) (Negative) Urine Ketones (Negative) Urine Blood (Negative) Urine Nitrite (Negative) Urine Bilirubin (Negative) Urine Urobilinogen (<2.0) mg/dL Ur Leukocyte Esterase (Negative) Urine RBC (0-5) /hpf Urine WBC (0-5) /hpf Ur Squamous Epith Cells (0-4) /hpf Urine Mucus (None) /hpf 03/21/23 03/21/23 03/21/23 Range/Units 12:51 12:51 13:50 WBC (3.8-10.6) k/uL RBC (3.80-5.40) m/uL Hgb (11.4-16.0) gm/dL Hct (34.0-46.0) % MCV (80.0-100.0) fL MCH (25.0-35.0) pg MCHC (31.0-37.0) g/dL RDW (11.5-15.5) % Plt Count (150-450) k/uL MPV Neutrophils % % Lymphocytes % % Monocytes % % Eosinophils % % Basophils % % Neutrophils # (1.3-7.7) k/uL Lymphocytes # (1.0-4.8) k/uL Monocytes # (0-1.0) k/uL Eosinophils # (0-0.7) k/uL Basophils # (0-0.2) k/uL Hypochromasia Microcytosis PT (10.0-12.5) sec INR (<1.2) APTT (22.0-30.0) sec Sodium (137-145) mmol/L Potassium (3.5-5.1) mmol/L Chloride (98-107) mmol/L Carbon Dioxide (22-30) mmol/L Anion Gap mmol/L BUN (7-17) mg/dL Creatinine (0.52-1.04) mg/dL Est GFR (CKD-EPI)AfAm (>60 ml/min/1.73 sqM) Est GFR (CKD-EPI)NonAf (>60 ml/min/1.73 sqM) Glucose (74-99) mg/dL Plasma Lactic Acid Shawn 1.8 (0.7-2.0) mmol/L Calcium (8.4-10.2) mg/dL Total Bilirubin (0.2-1.3) mg/dL AST (14-36) U/L ALT (4-34) U/L Alkaline Phosphatase (38-126) U/L Troponin I <0.012 (0.000-0.034) ng/mL Total Protein (6.3-8.2) g/dL Albumin (3.5-5.0) g/dL Amylase (30-110) U/L Lipase (23-300) U/L Urine Color Light Yellow Urine Appearance Cloudy H (Clear) Urine pH 5.5 (5.0-8.0) Ur Specific [place] 1.027 (1.001-1.035) Urine Protein Negative (Negative) Urine Glucose (UA) 4+ H (Negative) Urine Ketones 1+ H (Negative) Urine Blood Negative (Negative) Urine Nitrite Negative (Negative) Urine Bilirubin Negative (Negative) Urine Urobilinogen <2.0 (<2.0) mg/dL Ur Leukocyte Esterase Negative (Negative) Urine RBC 10 H (0-5) /hpf Urine WBC 19 H (0-5) /hpf Ur Squamous Epith Cells 2 (0-4) /hpf Urine Mucus Rare H (None) /hpf - EKG Data -: EKG Interpreted by Me EKG Comments: 12-lead Electrocardiogram Interpretation Note EKG was reviewed and interpreted by myself. 12-lead ECG performed at 1326 is interpreted by me as revealing normal sinus rhythm at a rate of 70 beats per minute. [place] is normal. [place] interval is 193 ms, QRS duration is 84 ms, QTc is 418 ms.. There were no ST or T wave abnormalities to suggest myocardial ischemia or injury. R wave progression across the precordium was satisfactory. By my interpretation this EKG is non-diagnostic for acute ischemia. Disposition Clinical Impression: Abdominal pain of unknown etiology Disposition: HOME SELF-CARE Condition: Good Instructions (If sedation given, give patient instructions): Abdominal Pain (ED) Prescriptions: Dicyclomine [Bentyl] 10 mg PO TID PRN 5 Days #15 capsule PRN Reason: Pain Is patient prescribed a controlled substance at d/c from ED?: No Referrals: Myrna Kang DO [Primary Care Provider] - 1-2 days Time of Disposition: 15:05
[2023-03-21 14:07] LABS: Appearance,Urine Cloudy (Clear); Bilirubin,Urine Negative (Negative); Blood,Urine Negative (Negative); Color,Urine Light Yellow; Glucose,Urine (UA) 4+ (Negative); Ketones,Urine 1+ (Negative); Leukocyte Esterase,Urine Negative (Negative); Mucus,Urine Rare /hpf; Nitrite,Urine Negative (Negative); PH, Urine 5.5 (5.0-8.0); Protein,Urine Negative (Negative); RBC,Urine 10 /hpf (0-5); Specific Gravity,Urine 1.027 (1.001-1.035); Squamous Epithelial Cell,Urine 2 /hpf (0-4); Urobilinogen,Urine <2.0 mg/dL (<2.0); WBC,Urine 19 /hpf (0-5)
[2023-03-21] MEDS ORDERED: MORPHINE SULFATE 2 MG/ML SYRINGE IVP STA (14:17)
--- NOTE | 2023-03-21 14:32 | US ---
EXAMINATION TYPE: US gallbladder DATE OF EXAM: 03/21/2023 COMPARISON: NONE CLINICAL INDICATION: Female, 77 years old with history of RUQ pain; RUQ pain TECHNIQUE: Multiple sonographic images of the right upper quadrant are obtained. FINDINGS: Exam limited by body habitus and bowel gas. EXAM MEASUREMENTS: Liver Length: 19.8 cm Gallbladder Wall: .3 cm CBD: .2 cm Right Kidney: 10.5 x 4.8 x 5.0 cm AMBULANCE MECHANIC NOTES:Limited due to bowel gas and body habitus Pancreas: Obscured by bowel gas Liver: Increased attenuation, hepatomegaly Gallbladder: No stones seen Evidence for sonographic Lacey's sign: No CBD: wnl Right Kidney: No hydronephrosis or masses seen IMPRESSION: 1. Limited study. 2. Unremarkable gallbladder and biliary tree. 3. Hepatomegaly and hepatic steatosis. 4. Pancreas obscured by bowel gas.
--- NOTE | 2023-03-21 14:54 | CT ---
EXAMINATION TYPE: CT abdomen pelvis w con CT DLP: 2018.9 mGycm, Automated exposure control for dose reduction was used. DATE OF EXAM: 03/21/2023 2:39 PM COMPARISON: CT abdomen pelvis most recent from CLINICAL INDICATION:Female, 77 years old with history of acute abd pain. TECHNIQUE: Axial CT of the abdomen and pelvis. Sagittal and coronal reformats were created on a [employer] workstation. Contrast used:100ml mL of Isovue 300 with IV Contrast, (none if empty) Oral contrast used: without Oral Contrast (none if empty) FINDINGS: LOWER CHEST: Unremarkable ABDOMEN LIVER: Diffusely hypoattenuating parenchyma. GALLBLADDER AND BILE DUCTS: Unremarkable. PANCREAS: Unremarkable. SPLEEN: Unremarkable. ADRENAL GLANDS: Unremarkable. KIDNEYS AND URETERS: No evidence of hydronephrosis or renal calculus. The ureters are unremarkable. PELVIS BLADDER: Unremarkable REPRODUCTIVE: Unremarkable. ABDOMEN & PELVIS STOMACH AND BOWEL: Stomach and duodenum are unremarkable. No evidence of bowel obstruction. PERITONEUM/RETROPERITONEUM: No evidence of pneumoperitoneum or free fluid. VASCULATURE: No evidence of aortic aneurysm. MUSCULOSKELETAL: No acute osseous abnormalities. Moderate disc degeneration changes are present throu ghout the thoracolumbar spine. LYMPH NODES: No gross evidence for lymphadenopathy. SOFT TISSUE/ABDOMINAL WALL: Unremarkable IMPRESSION: 1. No acute process. 2. Hepatic steatosis.
[2023-03-21] MEDS ORDERED: ONDANSETRON 4 MG ODT STARTER PACK 2 TAB BTL PO STA (15:10)
[2023-03-21 15:52] VITALS: BP 155/86; PULSE 75; TEMP 98.2
== END 2023-03-21 15:39 | disposition home or self-care (01) ==
LOC: EC 12:11
DX: R10.11 Right upper quadrant pain (principal); E11.36 Type 2 diabetes mellitus with diabetic cataract; I10 Essential (primary) hypertension; J44.9 Chronic obstructive pulmonary disease, unspecified; E78.5 Hyperlipidemia, unspecified; K21.9 Gastro-esophageal reflux disease without esophagitis; Z79.84 Long term (current) use of oral hypoglycemic drugs; Z79.85 Long-term (current) use of injectable non-insulin antidiabetic drugs; Z79.82 Long term (current) use of aspirin; Z79.899 Other long term (current) drug therapy; Z88.0 Allergy status to penicillin; Z88.2 Allergy status to sulfonamides; Z87.891 Personal history of nicotine dependence; Z90.49 Acquired absence of other specified parts of digestive tract
CPT/HCPCS: 36415; 93005; 80053; 82150; 83605; 83690; 84484; 85025; 85610; 85730; 81001; 76705; 74177; 99285; 96374; 96375 ×3; 96361; J2405; J2270; J1885; S0119; C9113; Q9967

== ENCOUNTER → 2023-10-20 | Outpatient (CLI) | payer MEDICARE, OTHER ==
--- NOTE | 2023-10-21 12:07 | MM ---
Reason for Exam: Screening (asymptomatic). Last screening mammogram was performed 12 month(s) ago. Patient History: Menarche at age 11. First Full-Term at age 22. Postmenopausal. 2011, Excisional Biopsy on the Right side. Risk Values: Shara 5 year model risk: 1.7%. NCI Lifetime model risk: 3.3%. Prior Study Comparison: 05/16/2020 Bilateral Screening Mammogram, [facility]. 09/25/2021 Bilateral Screening Mammogram, [facility]. 10/16/2022 Bilateral MG screening mammo w CAD, [facility]. Tissue Density: There are scattered areas of fibroglandular density. Findings: Analyzed By CAD. There are grouped calcifications in the upper outer left breast, central inner right breast and upper outer right breast for which spot magnification views are recommended. No dominant mass or architectural distortion. Surgical clip in the right breast. Overall Assessment: Incomplete: need additional imaging evaluation, BI-RAD 0 Management: Diagnostic Mammogram of both breasts. . Patient should continue monthly self-breast exams. A clinical breast exam by your physician is recommended on an annual basis. This exam should not preclude additional follow-up of suspicious palpable abnormalities. Note on Shara scores and lifetime risk: 1. A Shara score greater than 3% is considered moderate risk. If this is the case, consider specialist referral to assess eligibility for a risk reducing agent. 2. If overall lifetime risk for the development of breast cancer is 20% or higher, the patient may qualify for future screening with alternating mammogram and breast MRI. Electronically signed and approved by: Erik Tong M.D. Radiologis
== END | disposition home or self-care (01) ==
LOC: RADMAMWWP 10:37
PROVIDERS: ATTEND Family Medicine
DX: Z12.31 Encounter for screening mammogram for malignant neoplasm of breast (principal); Z78.0 Asymptomatic menopausal state
CPT/HCPCS: 77063; 77067

== ENCOUNTER → 2023-10-28 | Outpatient (CLI) | payer MEDICARE, OTHER ==
--- NOTE | 2023-10-28 10:40 | MM ---
Reason for Exam: Additional evaluation requested from abnormal screening. Last screening mammogram was performed less than 1 month ago. Patient History: Menarche at age 11. First Full-Term at age 22. Postmenopausal. 2011, Excisional Biopsy on the Right side. Risk Values: Shara 5 year model risk: 1.7%. NCI Lifetime model risk: 3.3%. Prior Study Comparison: 10/16/2022 Bilateral MG screening mammo w CAD, [facility]. 10/20/2023 Bilateral MG 3D screening mammo w/cad, [facility]. Tissue Density: There are scattered areas of fibroglandular density. Findings: Analyzed By CAD. The 2 areas of grouped calcifications questioned on the right breast has a coarsened heterogeneous appearance with similar morphology to the larger 12:00 chronic group. We note that these were present back in 2019 with slight interval increase. Short interval follow-up recommended. 12:00 left breast middle to posterior depth appear to have been present back in 2019 as well with slight interval increase. Six-month follow-up recommended. Overall Assessment: Probably benign, BI-RAD 3 Management: Diagnostic Mammogram of both breasts in 6 months. Results were given to the patient verbally at the time of exam. Patient should continue monthly self-breast exams. A clinical breast exam by your physician is recommended on an annual basis. This exam should not preclude additional follow-up of suspicious palpable abnormalities. Note on Shara scores and lifetime risk: 1. A Shara score greater than 3% is considered moderate risk. If this is the case, consider specialist referral to assess eligibility for a risk reducing agent. 2. If overall lifetime risk for the development of breast cancer is 20% or higher, the patient may qualify for future screening with alternating mammogram and breast MRI. Electronically signed and approved by: Angela Norman M.D. Radiologist
== END | disposition home or self-care (01) ==
LOC: RADMAMWWP 09:56
PROVIDERS: ATTEND Family Medicine
DX: R92.323 Mammographic fibroglandular density, bilateral breasts (principal); Z78.0 Asymptomatic menopausal state
CPT/HCPCS: 77062; 77066

== ENCOUNTER → 2024-10-30 | Outpatient (CLI) | payer MEDICARE, OTHER ==
--- NOTE | 2024-10-30 10:50 | MM ---
Reason for Exam: Screening (asymptomatic). Last screening mammogram was performed 12 month(s) ago. Patient History: Menarche at age 11. First Full-Term at age 22. Postmenopausal. 2011, Excisional Biopsy on the Right side. Risk Values: Shara 5 year model risk: 1.7%. NCI Lifetime model risk: 3.0%. Prior Study Comparison: 02/03/2018 Bilateral Screening Mammogram, [facility]. 03/24/2019 Bilateral Screening Mammogram, [facility]. 05/16/2020 Bilateral Screening Mammogram, [facility]. 09/25/2021 Bilateral Screening Mammogram, [facility]. 10/16/2022 Bilateral MG screening mammo w CAD, [facility]. 10/20/2023 Bilateral MG 3D screening mammo w/cad, [facility]. 10/28/2023 Bilateral MG 3D work up w/cad [facility], [facility]. Tissue Density: There are scattered areas of fibroglandular density. Findings: Analyzed By CAD. Mammotome biopsy clip in the right breast is redemonstrated. There are scattered and grouped small benign-appearing round calcifications bilaterally redemonstrated. There is no suspicious new distortion or new suspicious mass in either breast. Overall Assessment: Benign, BI-RAD 2 Management: Screening Mammogram of both breasts in 1 year. . Patient should continue monthly self-breast exams. A clinical breast exam by your physician is recommended on an annual basis. This exam should not preclude additional follow-up of suspicious palpable abnormalities. Note on Shara scores and lifetime risk: 1. A Shara score greater than 3% is considered moderate risk. If this is the case, consider specialist referral to assess eligibility for a risk reducing agent. 2. If overall lifetime risk for the development of breast cancer is 20% or higher, the patient may qualify for future screening with alternating mammogram and breast MRI. [facility], , 10/30/2024 10:47 AM. Electronically signed and approved by: Richard Caldera M.D.
== END | disposition home or self-care (01) ==
LOC: RADMAMWWP 09:46
PROVIDERS: ATTEND Family Medicine
DX: Z12.31 Encounter for screening mammogram for malignant neoplasm of breast (principal); R92.323 Mammographic fibroglandular density, bilateral breasts; Z78.0 Asymptomatic menopausal state
CPT/HCPCS: 77063; 77067